=== PATIENT | female | born 1955 | race Caucasian/White ===

== ENCOUNTER 2018-03-08 17:41 | Inpatient (IN) | payer BC ==
[~2018-03-08] VITALS: Ht 167.6 cm; Wt 111.1 kg
--- NOTE | ~2018-03-08 | DS ---
[facility] [address], [place] [address] Draft ADMISSION DATE: 03/08/2018 DISCHARGE DATE: 03/12/2018 REASON FOR ADMISSION: A 62-year-old white woman, well-known to me from the past having undergone colonoscopy for diverticulosis, presented with sudden onset of lower abdominal pain. She was evaluated in the emergency room by Dr. Gracia including a CT scan which showed free intraperitoneal air consistent with perforated viscus most likely diverticulitis. She has been admitted for further evaluation and care. PERTINENT PHYSICAL EXAMINATION: GENERAL: Showed an obese, pleasant woman who did not look severely toxic. Mucous membranes are somewhat dry. Trachea is midline. CHEST: Clear. HEART: Regular without murmur. ABDOMEN: Obese, showing generalized peritonitis with tenderness throughout. Most tenderness was in the left lower abdomen and suprapubic area. LABORATORY STUDIES: Showed white count of 11.4, hematocrit 45.7, and platelets 267,000. Creatinine 0.8. HOSPITAL COURSE: She was fluid resuscitated, given broad-spectrum antibiotics and taken to operation. She is found to have inflammatory change of the small bowel particularly in the left lower abdomen. No sign of generalized fibrinous peel and certainly no evidence of fecal peritonitis. She would be considered a Hinchey class II. Laparoscopic evaluation and peritoneal lavage were undertaken with placement of a peritoneal drain in the left lower abdomen near the sigmoid. Actual perforation was not identified, but the area of probable perforation with the fibrinopurulent exudate was seen. Laparoscopic lysis of adhesions was undertaken as well. Postoperatively, she was maintained on broad-spectrum antibiotic and transitioned ultimately to Cipro and Flagyl. She had nausea with the Flagyl and transitioned then to Augmentin which she tolerated well. On day of discharge, she is ambulating well, tolerating a low residue diet and drainage shows only clear fluid. She is expected to be discharged today anticipating continued use of a drain and antibiotics for seven more days. In a week or so, the drain will be removed. She may ultimately undergo followup CT scan. If she has worsening of her symptoms in anyway, she will let us know. I am hopeful and optimistic that will not be the case. Whether or not she will have definitive sigmoid resection remains to be determined. PATIENT NAME: EMILY MILLER DISCHARGE SUMMARY DATE OF : 51 REPORT #: [id number] PHYSICIAN: PRAVEENA CANTU MD PCP: BRAULIO ALVA PAC REPORT IS CONFIDENTIAL AND NOT TO BE RELEASED WITHOUT AUTHORIZATION [facility] [address], [place] [address] Draft DISCHARGE MEDICATIONS: 1. Augmentin 875 mg one tablet p.o. b.i.d. #14. 2. Ibuprofen 600 mg p.o. q.6 hours p.r.n. pain #30. 3. Percocet 7.5/325 mg 1-2 p.o. q.4 hours as needed for pain #10. 4. Tylenol 650 mg p.o. q.6 hours as needed for pain #60. 5. She will resume her usual medications of vitamin D 50,000 units p.o., daily, aspirin 81 mg p.o. daily, Lipitor 10 mg p.o. daily, and metoprolol 50 mg q.24 hours. 6. Rizatriptan 10 mg as needed for migraine headache. 7. Albuterol inhaler 2 puffs q.4 hours as needed. 8. Minocycline 50 mg p.o. b.i.d. for rosacea as needed. 9. Nasonex 2 sprays nasally as needed. 10. Claritin 10 mg p.o. daily at bedtime for allergies. DISCHARGE DIAGNOSES: 1. Perforated diverticulitis Hinchey class II, status post laparoscopic evaluation, peritoneal lavage, placement of drain, antibiotic therapy. 2. Obesity. 3. Reactive airways. 4. Hypertension. 5. Rosacea. PLAN: She is returned to see me in approximately 1-2 weeks for a drain removal hopefully. MD VIDA Vazquez/GABRIELLE /[id number] Copies: ~ PATIENT NAME: EMILY MILLER DISCHARGE SUMMARY DATE OF : 51 REPORT #: [id number] PHYSICIAN: PRAVEENA CANTU MD PCP: BRAULIO ALVA REPORT IS CONFIDENTIAL AND NOT TO BE RELEASED WITHOUT AUTHORIZATION
--- OUTSIDE RECORDS SUMMARY | ~2018-03-08 | XMS | Clinical Summary ---
Demographics + + + | Address | [address] | | | [place] [address] | + + + | Home Phone | | + + + | Preferred Language | Unknown | + + + | Marital Status | | + + + | Yazdanism Affiliation | 1028 | + + + | Race | Unknown | + + + | Ethnic Group | Unknown | + + + Author + + + | Author | [facility] | | | and [place] | + + + | Organization | [facility] | | | and [place] | + + + | Address | Unknown | + + + | Phone | Unavailable | + + + Support + + +---------+ + | Name | Relationship | Address | Phone | + + +---------+ + | JAMEY DIXON ECON | Unknown | | + + +---------+ + Care Team Providers + +------+ + | Care Elevator Adjuster Name | Role | Phone | + +------+ + PP | Unavailable | + +------+ + Allergies Not on File Current Medications Not on file Active Problems Not on file Social History + +-------+ +--------+------+ | Tobacco Use | Types | Packs/Day | Years | Date | | | | | Used | | + +-------+ +--------+------+ | Never Assessed | | | | | + +-------+ +--------+------+ + + + | Sex Assigned at | Date Recorded | | | | + + + | Not on file | | + + + Plan of Treatment + + + + + | Health Maintenance | Due Date | Last Done | Comments | + + + + + | Vaccine: | | | | | Dtap/Tdap/Td (1 - | 3 | | | | Tdap) | | | | + + + + + | Cervical Cancer | | | | | Screening (Pap) | 4 | | | + + + + + | Vaccine: Zoster (1 | | | | | of 2) | 4 | | | + + + + + | Vaccine: Influenza | | | | | (#1) | 8 | | | + + + + + Results Not on filefrom Last 3 Months"
--- OUTSIDE RECORDS SUMMARY | ~2018-03-08 | XMS | Clinical Summary ---
Demographics + + + | Address | [address] | | | [place] [address] | + + + | Home Phone | | + + + | Preferred Language | Unknown | + + + | Marital Status | | + + + | Restorationist Affiliation | 1028 | + + + | Race | Unknown | + + + | Ethnic Group | Unknown | + + + Author + + + | Author | [facility] | | | and [place] | + + + | Organization | [facility] | | | and [place] [...] Team Providers + +------+ + | Care Corn Detasseler Name | Role | Phone | + [...]
[2018-03-08] MEDS ORDERED: VITAMIN D50000 UNI1 PO (18:29)
[2018-03-08] MEDS ORDERED: TOPROL XL25 MG PO (18:29)
[2018-03-08] MEDS ORDERED: ASPIR-LOW81 MG PO (18:30)
[2018-03-08] MEDS ORDERED: LIPITOR10 MG PO (18:30)
--- NOTE | 2018-03-08 19:30 | NUR ---
CHARGE NURSE ROUNDING NOTE:. MARIA ELENA WILSON, PATENT, NO C/O PAIN, VISITING WITH FAMILY
--- NOTE | 2018-03-08 23:38 | NUR ---
03/08/18 4010 Rin Coronel PATIENT REMOVES HER OXYGEN MASK AND OXYGEN IS BEING ADMINSTERED VIA BB - 10 L.
--- NOTE | 2018-03-09 00:15 | NUR ---
PT BROUGHT TO ROOM VIA STRETCHER. HAND OFF RECIEVED FROM MACHINE SORTER. PT AOX4, DROWSY AND TIRED, BUT RESPONSIVE TO QUESTIONS. PERRLA, LS CLEAR, HEART SOUNDS WNL, BT HYPOACTIVE. ABD TENDER. 3 LAP SITES PRESENT WITH SMALL AMOUNT OF SANGUINEOUS DRAINAGE. ALEX DRAIN NOTED WITH MODERATE AMOUNT OF SANGUINEOUS DRAINAGE. VSS. PT ON 1LNC. PT'S O2 SAT >90. PT PLACED ON CPOX. CMS INTACT. PT DENIES SIGNIFICANT PAIIN AND DENIES PRN PAIN/NAUSEA MEDICATION AT THIS MOMENT. PT ORIENTED TO ROOM. CALL LIGHT WITHIN REACH. ADMISSION COMPLETE. NO FURTHER REQUESTS.
--- NOTE | 2018-03-09 01:24 | NUR ---
VITALS DONE AND CHARTED.
--- NOTE | 2018-03-09 01:36 | NUR ---
IN ROOM FOR HOURLY VITALS. VSS. PT C/O 08/26 PAIN WITH SOME MILD NAUSEA. PT GIVEN PRN PAIN/NAUSEA MEDICATION PER EMAR. PT EDUCATED ON PAIN/ NAUSEA MANAGEMENT. PT VERBALIZED UNDERSTANDING. NO REQUESTS AT THIS TIME. CALL LIGHT WITHIN REACH.
--- NOTE | 2018-03-09 02:37 | NUR ---
VITALS DONE AND CHARTED.
--- NOTE | 2018-03-09 02:52 | NUR ---
PT ASLEEP IN BED. CPOX READS 89 %. RR 14. PT PLACED ON 1LNC WHILE SLEEPING DUE TO HX OF SLEEP APNEA. PT DENIES ANY PAIN OR NAUSEA. NO REQUESTS AT THIS TIME. HYDRATION AT BEDSIDE. CALL LIGHT WITHIN REACH.
--- NOTE | 2018-03-09 04:28 | NUR ---
IN PT ROOM TO ADMINISTER 0300 ABX. IV D5 LR AND MEROPENEM FOUND TO BE INCOMPATIBLE, TELE PHARMACY CONSULTED. NEW 20 G IV STARTED IN RIGHT AC BY GIBSON CHEN. MEROPENEM RUNNING CONCURRENTLY WITH NS IN RIGHT AC, D5 LR RUNNING IN LEFT HAND. PT DENIES ANY PAIN OR NAUSEA AT THIS TIME. DENIES ANY REQUESTS AT THIS TIME. HYDRATION AT BEDSIDE. CALL LIGHT WITHIN REACH.
--- NOTE | 2018-03-09 05:55 | NUR ---
SPOKE TO ABOUT PATIENT'S DAO. NEW ORDERS TO DC DAO AND DECREASE THE IV FLUIDS FROM 125 TO 85ML/HR. VERIFIED USING READ BACK METHOD. HYBRID POWERTRAIN DEVELOPMENT ENGINEER TO DC DAO.
--- NOTE | 2018-03-09 06:16 | NUR ---
VITALS DONE AND CHARTED. BEDSIDE TABLE AND CALL LIGHT IN REACH. PT NEEDS NOTHING ELSE AT THIS TIME.
--- NOTE | 2018-03-09 06:25 | NUR ---
PT ARRIVED TO UNIT AT 0015 VIA STRETCHER FROM OR. PT AOX4, DROWSY FROM ANESTHESIA. PT'S PAIN HAS BEEN WELL MANAGED AT 1-/ THROUGHOUT SHIFT. PT RECIEVED PRN PAIN/NAUSEA MEDICATION X1. PT ON 1LNC R/T HISTORY OF SLEEP APNEA. PT STATES THAT SHE DOES NOT TOLERATE A CPAP AT HOME. CPOX IN PLACE. PT'S O2 SAT > 95 ON 1LNC WHILE SLEEPING. PT HAS 3 LAP SITES PRESENT ON ABDOMEN. 1 WITH ALEX DRAIN. PT HAS HAD MODERATE SANGUINEOUS DRAINAGE FROM ALEX DRAIN. DAO CATHETER IN PLACE. VITAL SIGNS HAVE REMAINED STABLE. PT AFEBRILE. IV RUNNING WNL IN LEFT HAND AND RIGHT AC.
--- NOTE | 2018-03-09 06:27 | NUR ---
PATIENT ARRIVED FROM SURGERY AROUND 0015. MINIMAL PAIN, MORPHINE X1. NAUSEA CONTROLED WITH PRN ZOFRAN X1. NO EMESIS. LAP SITES X3, MINIMAL DRAINAGE. ALEX DRAIN HAS MODERATE AMOUNT OF OUTPUT FOR THE SHIFT, 30MLS FOR FIRST 4 HOURS POST OP. SYLWIA MEDEROS THIS AM, OUTPUT QS. PATIENT TOLERATING CLEAR LIQUIDS. IV ABX AND IV FLUIDS PER ORDERS. HAS NOT BEEN OUT OF BED, PRIOR TO SURGERY SHE AMBULATED WITHOUT ASSIST. VS WNL.
--- NOTE | 2018-03-09 07:36 | NUR ---
RECIEVED BEDSIDE REPORT FROM APRIL ARREAGA AND APRIL SHORT. PT AWAKE AND ALERT, SITTING IN THE CHAIR. PT HAD QUESTIONS REGARDING PLAN OF CARE, ALL QUESTIONS ANSWERED.
--- NOTE | 2018-03-09 09:18 | NUR ---
PT IS IN CHAIR, BUT REQUESTED ASSISTANCE TO BED. RN ASSISTED TO BED. PT REPORTS NO PAIN AT REST, BUT PAIN JUMPS TO 7/10 WITH MOVEMENT. PT TOLERATING CLEAR LIQUIDS WELL. TOLERATING IV ABX WELL.
--- NOTE | 2018-03-09 10:17 | NUR ---
PT REPORTS A SHARP, STABBING PAIN UNDER HER ALEX SITE. THE PAIN SEEMS TO BE BELOW AND MIDLINE TO THE ALEX. PT DECLINED PAIN MEDS AT THIS TIME. ALEX DRAIN IS DRAINING SEROUS FLUID AND APPEARS INTACT. PT STATES SHE WILL REST A FEW MIN AND DECIDE IF SHE WANTS MEDS.
--- NOTE | 2018-03-09 11:35 | NUR ---
OFFERED PT AN ICE PACK OR HEAT PACK FOR ABD PAIN. PT STATES SHE IS GOOD AT THIS TIME. DR CANTU AWARE OF INCREASE IN PAIN.
[2018-03-09] MEDS ORDERED: METOPROLOL SUCC50 MG PO (12:22)
[2018-03-09] MEDS ORDERED: MINOCYCLINE HCL50 MG PO (14:20)
[2018-03-09] MEDS ORDERED: RIZATRIPTAN10 M1 PO (14:20)
[2018-03-09] MEDS ORDERED: VENTOLIN HFA18 GM INH (14:20)
[2018-03-09] MEDS ORDERED: NASONEX17 GM NAS (14:21)
[2018-03-09] MEDS ORDERED: CLARITIN10 MG PO (14:22)
--- NOTE | 2018-03-09 14:23 | NUR ---
MED REC COMPLETE
--- NOTE | 2018-03-09 17:33 | OR ---
[facility] [address], [place] [address] Signed DATE OF OPERATION: 03/08/2018 SURGEON: Praveena Cantu MD PREOPERATIVE DIAGNOSES: 1. Generalized peritonitis with free intraperitoneal air. 2. Known extensive diverticulosis. 3. Morbid obesity. BMI 36. POSTOPERATIVE DIAGNOSES: 1. Generalized peritonitis with free intraperitoneal air. 2. Known extensive diverticulosis. 3. Morbid obesity. BMI 36. 4. Perforated diverticulitis, Hinchey class two. PROCEDURE: 1. Laparoscopy with laparoscopic peritoneal lavage and placement of peritoneal drain left lower quadrant. 2. Laparoscopic lysis of adhesions. ANESTHESIA: General endotracheal, Praveena Dubon CRNA, and local 20 mL of 0.25% Marcaine with epinephrine. INDICATION: This 62-year-old, BMI of 36 (morbidly obese) white woman had the sudden onset of lower abdominal pain at approximately 2:30 this afternoon. As time went on the pain worsened, and she presented to the emergency room where she was evaluated by Dr. Kellen Gracia. She is found to have diffuse abdominal tenderness. Her white count was normal at 11.5. A CT scan was performed, which showed free intraperitoneal air distributed throughout the abdomen and diverticular changes with peridiverticular inflammatory changes. She is known to me from the past having undergone colonoscopy in 2009, which showed only diverticulosis. She has been fluid resuscitated, given broad-spectrum antibiotics and is now admitted to undergo laparoscopy, possible laparoscopic lavage and placement of drain versus sigmoid resection depending on Hinchey classification. She understands risks of bleeding, infection, failure to cure her problem, need for open procedure, need for colostomy if resection is performed, and other unforeseen complications including recurrence. She Electronically Signed By: PRAVEENA CANTU MD 03/09/18 1733 PATIENT NAME: EMILY MILLER OPERATIVE REPORT DATE OF : 51 REPORT #: [id number] PHYSICIAN: PRAVEENA CANTU MD PCP: BRAULIO ALVA PAC REPORT IS CONFIDENTIAL AND NOT TO BE RELEASED WITHOUT AUTHORIZATION [facility] [address], [place] [address] Signed and her family understand and wished to proceed. FINDINGS: Within the abdominal cavity there were signs of inflammation with injection of small bowel loops and ultimately a fibrinous exudative, purulent area in the sigmoid area. There was no sign of free stool and should be considered Hinchey class two overall. Generalized peritoneal lavage was undertaken, and placement of drain in the left lateral aspect of the colon in the sigmoid. There was surgical absence of the gallbladder from prior open cholecystectomy. The right colon, cecum, and loops of small bowel appeared normal. There was no evidence of perforated ulcer. The liver did have steatosis, but no sign of cirrhotic changes. There were omental adhesions, which were taken down with sharp dissection without problem. DESCRIPTION OF PROCEDURE: The patient was brought to the operating room, given a general endotracheal anesthetic. Preoperative antibiotic meropenem had been given. Sequential compression device stockings used and heparin subcutaneously administered. The abdomen was prepared with a chlorhexidine solution and draped sterilely. A supraumbilical incision was made and using an open Rudy cannula technique, the abdomen was entered and pneumoperitoneum achieved to a level of 14 mmHg of carbon dioxide gas. Intraabdominal inspection showed no sign of ascites or even much inflammatory fluid, but there was marked injection of small bowel loops mostly down in the left lower abdomen. A 12 mm epigastric port was placed, and a camera placed at that site. Further inspection allowed for a rotation of the table to the right side down. Direct examination of the left colon and sigmoid area showed some inflammatory change. There is certainly no sign of gross fecal contamination or even generalized turbid fluid as is often seen. A right lower quadrant 5 mm trocar was placed under direct visualization and operative intervention taken from the right side of the table at that point. With two hand manipulation with the camera in the epigastric port and the other instrument at the umbilical site, the small bowel loops were gently rotated to the right side with the aid of gravity from table rotation. Irrigation was undertaken with antibiotic containing saline solution and with various manipulations, the fatty taenia epiploica were gently brushed to side showing in the sigmoid area a fibrinous peel suggestive of recent perforation. There was no sign of abscess proper at that point. Further irrigation was undertaken including the left colon itself. Excess irrigation fluid was suctioned free. A left lower quadrant 5 mm trocar was placed and a 7 mm flat Electronically Signed By: PRAVEENA CANTU MD 03/09/18 1733 PATIENT NAME: EMILY MILLER OPERATIVE REPORT DATE OF : 51 REPORT #: [id number] PHYSICIAN: PRAVEENA CANTU MD PCP: BRAULIO ALVA PAC REPORT IS CONFIDENTIAL AND NOT TO BE RELEASED WITHOUT AUTHORIZATION [facility] [address] [place] [id number] Signed Geovanni drain was positioned along the left pericolic gutter, and around the sigmoid extending to the pelvis. Operative position was then changed to the left side. The table was rotated and inspection on the right side with irrigation was undertaken irrigating fluid throughout the abdomen, which was already reasonably clear. Similar irrigation was undertaken over the dome of the liver. There was surgical absence of the gallbladder with adhesions to the subhepatic space quite densely noted. There was no evidence of purulence, or sign of perforation in the region of the stomach or duodenum. Not mentioned previously was extensive adhesiolysis of omentum to the midline of the abdomen at the outset of the operation, which was taken down with sharp dissection through the right sided approach, and a few clips applied to the omental adhesions as needed. Inspection of the dissected omental adhesions from the abdominal wall was undertaken and small areas of bleeding were secured with electrocautery. Reinspection of the left lower quadrant and pelvis and so forth was undertaken and excess irrigation fluid suctioned free. The trocars were then removed under direct visualization showing no sign of bleeding. The supraumbilical fascial incision was reapproximated with interrupted 0 Vicryl suture. All wounds were copiously irrigated with saline solution. Skin closed with interrupted 3-0 Vicryl. Steri-Strips were applied. The drain was attached to bulb suction after being secured with nylon suture previously. Serosanguineous fluid only was noted. The patient was ultimately extubated for recovery in good condition having suffered no complication. COUNTS: Sponge, needle, and instrument counts reported as correct x3. MD VIDA Vazquez/GABRIELLE /[id number] Electronically Signed By: PRAVEENA CANTU MD 03/09/18 1733 PATIENT NAME: EMILY MILLER OPERATIVE REPORT DATE OF : 51 REPORT #: [id number] PHYSICIAN: PRAVEENA CANTU MD PCP: BRAULIO ALVA PAC REPORT IS CONFIDENTIAL AND NOT TO BE RELEASED WITHOUT AUTHORIZATION [address] [address] Signed cc: MD Kayla Gonzalez MD Copies: KELLEN GRACIA MD, ERICA MD ~ Electronically Signed By: PRAVEENA CANTU MD 03/09/18 1733 PATIENT NAME: EMILY MILLER OPERATIVE REPORT DATE OF : 51 REPORT #: [id number] PHYSICIAN: PRAVEENA CANTU MD PCP: BRAULIO ALVA PAC REPORT IS CONFIDENTIAL AND NOT TO BE RELEASED WITHOUT AUTHORIZATION
--- NOTE | 2018-03-09 17:33 | HP ---
[facility] [address], [place] [address] Signed ADMISSION DATE: 03/08/2018 TIME: 9:20 p.m. PROBLEM: Probable perforated diverticulitis with free air, and generalized peritonitis. HISTORY OF PRESENT ILLNESS: This 62-year-old white woman a mother of my patient, and patient is known to me from the past having undergone colonoscopy for diverticulosis. Today, in the early afternoon, she had a rather sudden onset of lower abdominal pain, which felt like "gas." She could not find a position of comfort and things worsened. She thought a bowel movement or other relief of flatus may help her symptoms, but that was not forthcoming. She last ate at approximately 3:30, a protein bar with a weight loss program she is enrolled with. She presented to the emergency room where she was thoroughly evaluated by Dr. Gracia, and found to have generalized abdominal tenderness, though she did not look systemically toxic. A CT scan was performed of the abdomen confirming free intraperitoneal cold air. She has numerous diverticula and the probable source of her free air is perforated diverticulitis. The patient does not have as much upper abdominal pain and there were no other intraabdominal findings of concern. She is admitted for further evaluation and care. PAST MEDICAL HISTORY: Significant for obesity, for which she has sustained 38-pound weight loss with dedicated efforts with a weight loss program to do so. She has no known drug allergies. She does not have diabetes. SOCIAL HISTORY: She works in [employer], lives in [place]. She is accompanied by her fiance, as well as granddaughters and daughters. REVIEW OF SYSTEMS: She denies any shortness of breath or chest pain. She is having no dysphagia, or dysuria. She denies any hematemesis. No blood per rectum. PHYSICAL EXAMINATION: GENERAL: This is an obese, pleasant white woman who does not look severely toxic particularly. Mucous membranes are somewhat dry. Trachea is midline. Electronically Signed By: PRAVEENA CANTU MD 03/09/18 1733 PATIENT NAME: EMILY MILLER HISTORY AND PHYSICAL DATE OF : 51 REPORT #: [id number] PHYSICIAN: PRAVEENA CANTU MD PCP: BRAULIO ALVA PAC REPORT IS CONFIDENTIAL AND NOT TO BE RELEASED WITHOUT AUTHORIZATION [facility] [address], [place] [address] Signed CHEST: Clear. HEART: Regular without murmur. ABDOMEN: Obese. Abdominal palpation reveals generalized peritonitis. Most dominant tenderness is in the left lower and suprapubic area. EXTREMITIES: No clubbing, cyanosis, or edema. CT scan was reviewed showing diffuse disseminated intraperitoneal air. The colon was well visualized, and does have some stool in it. The spleen and liver appeared normal. Both kidneys appeared normal. Normal anatomy of the vena cava and aorta is noted. In the area of the sigmoid there appears to be fat stranding multiple diverticula. No sign of well-formed abscess particularly. There is some stool in the rectosigmoid and rectum. LABORATORY DATA: White count is only 11.4. Her hematocrit is 45.7, platelets 267,000. Electrolytes and Chem profile are normal. Creatinine is 0.80, glucose 134. Review of medical record shows colonoscopy performed by me 8 years ago, in 2009 showing diverticulosis and mild proctitis. ASSESSMENT: The patient has diffuse peritonitis with free intraabdominal air. Most likely this represents perforated diverticulitis. We reviewed standard and conventional approaches to management including laparotomy with sigmoid resection and colostomy, over-sewing of rectal stump with subsequent later takedown of colostomy (Nita's procedure). I reviewed with her also another approach, which has been successful in my hands providing there was no gross fecal contamination, which included laparoscopy, laparoscopic lavage, and placement of drain. Subsequent delayed sigmoid resection with anastomosis, primarily in general is a consideration. She would certainly prefer to avoid colostomy if possible obviously. I discussed with her that such patients that are candidates for this approach those without gross fecal contamination, (Hinchey class three or less), but certainly Hinchey class four with gross fecal contamination. Would not be appropriate candidate for such an approach. She understands that failure of this approach may still result in sigmoid resection with colostomy. The risks of bleeding, infection, failure of operation, need for other procedures, and of course, misdiagnosis were all reviewed. The possibility of perforated gastric ulcer or duodenal ulcer is reviewed, however, it is unlikely as the dominant findings include lower abdominal tenderness and she does have documented and well visualized diverticular disease of sigmoid. She will receive and has started to receive meropenem antibiotic, and Pepcid for ulcer prophylaxis, and will be getting additional fluid boluses prior to operation. Operation Electronically Signed By: PRAVEENA CANTU MD 03/09/18 6745 PATIENT NAME: EMILY MILLER HISTORY AND PHYSICAL DATE OF : 51 REPORT #: [id number] PHYSICIAN: PRAVEENA CANTU MD PCP: BRAULIO ALVA PAC REPORT IS CONFIDENTIAL AND NOT TO BE RELEASED WITHOUT AUTHORIZATION [address] [address] Signed will be performed this evening. MD VIDA Vazquez/MODL /[id number] cc: Kellen Gracia MD Copies: KELLEN GRACIA MD ~ Electronically Signed By: PRAVEENA CANTU MD 03/09/18 1733 PATIENT NAME: EMILY MILLER HISTORY AND PHYSICAL DATE OF : 51 REPORT #: [id number] PHYSICIAN: PRAVEENA CANTU MD PCP: BRAULIO ALVA PAC REPORT IS CONFIDENTIAL AND NOT TO BE RELEASED WITHOUT AUTHORIZATION
--- NOTE | 2018-03-09 19:05 | NUR ---
REPORT RECIEVED. PT RESTING IN BED. FAMILY AT BEDSIDE. CALL LIGHT WITHIN REACH. NO REQUESTS AT THIS TIME
--- NOTE | 2018-03-09 19:07 | NUR ---
PATIENT RESTING IN BED, FAMILY MEMBER IN THE ROOM. CALL LIGHT WITH IN REACH, NO OTHER NEEDS AT THIS TIME.
--- NOTE | 2018-03-09 20:20 | NUR ---
IN ROOM FOR SHIFT ASSESSMENT. PT RESTING IN BED WITH FAMILY AT BEDSIDE. PT STATES THAT SHE HAS PAIN LEVEL OF 6/10. PT GIVEN PRN MOTRIN FOR PAIN. PT AOX4. PLEASANT. PT'S LS CLEAR, PT SHOWED DIFFICULTY TO SIT UP IN BED R/T ABD PAIN. ABD TENDER. LAP SITES X3 VISUALIZED. STERI STRIPS INTACT. MODERATE AMOUNT OF DRAINAGE PRESENT. ALEX DRAIN INTACT. DRAINING WELL. BT HYPOACTIVE. IV ABX FINISHED. PT SL NOW. PT DENIES ANY NAUSEA AT THIS TIME. TOLERATING CLEAR LIQUIDS WELL. URINE OUTPUT QS. SCD'S ON. NO REQUESTS AT THIS TIME. CALL LIGHT WITHIN REACH.
--- NOTE | 2018-03-09 21:40 | NUR ---
IN ROOM TO ADMIN EVENING MEDS. PT RESTING IN BED. PT STATES THAT THE MOTRIN GIVEN TO HER HAS "TAKEN THE EDGE OFF" AND SHE FEELS MUCH BETTER. PT DENIES ANY NAUSEA. ICE PACKS GIVEN TO PT. PT UP TO BATHROOM. URINE OUTPUT QS. PT TOLERATED AMBULATING WELL. STEADY ON FEET 1 PERSON SBA. PT TOLERATED EVENING MEDS. IV ABX RUNNING PER EMAR. SCD'S ON. PT TUCKED IN FOR THE NIGHT. NO FURTHER NEEDS AT THIS TIME. CALL LIGHT WITHIN REACH. HYDRATION AT BEDSIDE.
--- NOTE | 2018-03-09 22:06 | NUR ---
VITALS AND I&OS DONE AND CHARTED. BEDSIDE TABLE AND CALL LIGHT IN REACH.
--- NOTE | 2018-03-10 00:22 | NUR ---
PT SOUND ASLEEP. CPOX ON O2 SAT >95. PT ON 1LNC WHILE SLEEPING. NO NEEDS AT THIS TIME. CALL LIGHT WITHIN REACH.
--- NOTE | 2018-03-10 01:01 | NUR ---
PT RESTING IN BED. DENIES ANY PAIN AT THE MOMENT. DENIES NEED FOR PRN PAIN MEDICATION. DENIES NAUSEA. NEW ICE PACK PLACED TO PT'S LEFT LOWER ABDOMINAL. IV ABX COMPLETE. IV SL. NO FURTHER REQUEST. CALL LIGHT WITHIN REACH.
--- NOTE | 2018-03-10 02:00 | NUR ---
PT SOUND ASLEEP IN ROOM. NO NEEDS AT THIS TIME. CPOX IN PLACE. O2 SAT >95 ON 1LNC FOR SLEEP. CALL LIGHT WITHIN REACH.
--- NOTE | 2018-03-10 03:25 | NUR ---
IN ROOM TO ADMIN SCHEDULED ABX. ALEX DRAIN NOTED TO BE CLOTTED. ALEX DRAIN STRIPPED, PT IMMEDIATELY C/O SHARP PAIN IN ABDOMEN RELATED TO ALEX STRIPPING. PT TEARFUL/GROANING IN PAIN. CLOT DISLODGED. ALEX DRAINING WELL NOW. PT GIVEN PRN PAIN MEDICATION. PT STATES PAIN IS DECREASING AFTER CLOT DISLODGED. PT EDUCATED ON DRAIN AND PAIN MANAGEMENT. QUESTIONS ANSWERED. NEW ICE PACK GIVEN. NO FURTHER REQUESTS AT THIS TIME. CALL LIGHT WITHIN REACH.
--- NOTE | 2018-03-10 05:45 | NUR ---
VITALS AND I&OS DONE AND CHARTED. HELPED PT TO THE BATHROOM AND BACK TO BED. BEDSIDE TABLE AND CALL LIGHT IN REACH. PT NEEDS NOTHING AT THIS TIME.
--- NOTE | 2018-03-10 06:30 | NUR ---
PT SLEPT THROUGHOUT MOST OF THE NIGHT. PT GIVEN PRN MOTRIN WHICH RELEIVED 6/10 ABD PAIN VERY WELL. IV SL. IV ABX DELIVERED PER EMAR. ALEX DRAINING WNL. PT GIVEN PRN PERCOCET X1 AFTER STRIPPING ALEX DRAIN DUE TO CLOTS. PT DENIES ANY NAUSEA. AMBULATES WELL WITH 1 PERSON SBA. PT REMAINS ON CLEAR LIQUID DIET. TOLERATING WELL. PT ON 1LNC THROUGHOUT NIGHT WITH CPOX. O2 SAT > 95 THROUGHOUT NIGHT.
--- NOTE | 2018-03-10 08:05 | NUR ---
RECIEVED REPORT FROM APRIL ARREAGA AND APRIL SHORT. PT SLEEPING SOUNDLY. PT REQUESTS NO BEDSIDE REPORT DUE TO SLEEPING. APRIL ARREAGA REPORTS EXTREME PAIN WHEN "STRIPPING" THE ALEX LINE. WILL TALK TO DR CANTU ON ROUNDS RE: PLACEMENT OF DRAIN. MT ON 1L O2 WHILE SLEEPING, MAINTAINING O2 SATS PER CONT. PULSE OX MACHINE.
--- NOTE | 2018-03-10 10:48 | NUR ---
pt asked to use the bathroom, unhooked pt's SCDs and pt walked to bathroom, voided, and returned to bed. pt's ALEX was emptied and new gown was given. pt asked for more ice water and pain meds, nurse notified.
--- NOTE | 2018-03-10 13:59 | NUR ---
REPORT RECEIVED FROM APRIL WHITEHEAD. PT SITTING UPRIGHT IN BED WITH AT BEDSIDE. UP TO RESTROOM WITH 600 OUT. PT DENIES CONCERNS ATT.
--- NOTE | 2018-03-10 14:33 | NUR ---
PT CALLED TO REPORT BOUT OF SEVERE NAUSEA. GAVE EMESIS BAG AND ADMINISTERED 12.5 OF PHEN. PT SITTING UP IN BED WITH EYES CLOSED, DEEP BREATHING.
--- NOTE | 2018-03-10 14:47 | NUR ---
pt is resting in bed with call light in reach, pt asked for more ice water
--- NOTE | 2018-03-10 16:54 | NUR ---
ASKED PT AGAIN TO GO FOR A WALK AND NOW SHE STATES SHE IS TOO DIZZY TO WALK MORE THAN JUST THE RESTROOM. WILL TRY AGAIN IN 1\2 HOUR.
--- NOTE | 2018-03-10 18:36 | NUR ---
PT UP AND DOWN TO BATHROOM TODAY. REFUSED TO WALK IN STRINGER EVEN AFTER FREQUENT REQUESTS BY STAFF. MINIMAL OUTPUT BY JP. SL. SAHA.
--- NOTE | 2018-03-10 19:10 | NUR ---
pt is resting in bed safely with call light in reach. pt did not need anything at the moment
--- NOTE | 2018-03-10 19:15 | NUR ---
REPORT RECIEVED. PT RESTING IN BED. FAMILY AT BEDSIDE. PT C/O FEELING GASSY. PT ENCOURAGED TO GET UP AND AMBULATE IN THE HALLS. PT COMPLIANT. WALKED TWO LAPS IN STRINGER WITH . NO REQUESTS AT THIS TIME. PT DENIES PAIN OR NAUSEA. CALL LIGHT WITHIN REACH.
--- NOTE | 2018-03-10 20:35 | NUR ---
IN ROOM FOR SHIFT ASSESSMENT. PT UP TO BATHROOM. VOIDED 200 MLS OF CLEAR YELLOW URINE. PT DENIES BM TODAY. BT ACTIVE THROUGHOUT, ABD TENDER. LAP SITES X3 VISUALIZED. STERI STRIPS INTACT. SMALL AMOUNT OF OLD SEROSANUINOUS DRAINAGE. PT'S ALEX DRAINING WNL. PT'S LS CLEAR THROUGHOUT, DENIES N/V. CMS INTACT. VSS. PT AOX4. PT ON 1LNC O2 FOR BEDTIME. SALTINES GIVEN PER PT REQUEST. HYDRATION AT BEDSIDE. NO FURTHER REQUESTS AT THIS TIME. CALL LIGHT WITHIN REACH.
--- NOTE | 2018-03-10 22:15 | NUR ---
VITALS AND I&OS DONE AND CHARTED. STOOD BY PT WENT TO USE THE BATHROOM AND BACK TO BED. BEDSIDE TABLE AND CALL LIGHT IN REACH.
--- NOTE | 2018-03-11 01:21 | NUR ---
PT SOUND ASLEEP. NO NEEDS AT THIS TIME. CALL LIGHT WITHIN REACH. PT ON 1L VIA NC AT NIGHT.
--- NOTE | 2018-03-11 02:53 | NUR ---
PT SOUND ASLEEP. O2 AT 1LNC REMAINS ON PT FOR SLEEP. NO REQUESTS AT THIS TIME. CALL LIGHT WITHIN REACH.
--- NOTE | 2018-03-11 05:02 | NUR ---
PT SLEPT SOUNDLY THROUGHOUT MOST OF THE SHIFT. PT AMBULATED IN HALLWAY AT BEGINNING OF SHIFT WITH . PT ALSO AMBULATED IN HALLWAY THIS MORNING WITH FWW TO PROVIDE SOME EXTRA STABILITY. PT TOLERATED WELL. PT RECIEVED PRN MOTRIN X1 THROUGHOUT SHIFT FOR 6/10 PAIN AFTER AMBULATING. NO C/O PAIN AFTER PRN PAIN MED GIVEN. NO C/O NAUSEA. NO BM THIS SHIFT. BT ACTIVE. ABD TENDER, 3 LAP SITES WITH STERI STRIPS C/D/I. ALEX DRAINED 15 MLS OF SEROSANGUINEOUS FLUID THROUGHOUT SHIFT. URINE OUTPUT QS. LS CLEAR. ON 1LNC AT NIGHT DUE TO SLEEP AP.
--- NOTE | 2018-03-11 05:23 | NUR ---
PT UP TO BATHROOM. AMBULATES WELL WITH 1 PERSON SBA. PT DENIES ANY PAIN WITH AMBULATION. STATES SHE HAS BEEN SLEEPING WELL THROUGHOUT THE NIGHT. NO C/O NAUSEA. VSS. 15 MLS DRAINED OUT OF ALEX DRAIN. NO C/O PAIN WITH ALEX DRAINAGE. PT UP TO AMBULATE IN HALLWAYS. COMPLETED 4 LAPS IN STRINGER TOLERATED WELL. BACK TO BED NOW. NO REQUESTS AT THIS TIME. CALL LIGHT WITHIN REACH.
--- NOTE | 2018-03-11 07:32 | NUR ---
RECIEVED BEDSIDE REPORT FROM APRIL SHORT AND APRIL ARREAGA. PT AWAKE AND ALERT IN BED. PT HAS BEEN UP WALKING THIS MORNING, 4 LAPS. PT REPORTS MINIMAL PAIN, EXCEPT WITH DRAIN CARE. PT REPORTS MINIMAL NAUSEA WITH ABX, REQUESTS CHANGE IN ANTI-NAUSEA MEDS (WOULD LIKE ZOFRAN). PT WOULD LIKE A SHOWER TODAY, WILL CONFIRM THAT IS OK.
--- NOTE | 2018-03-11 08:40 | NUR ---
PATIENT RESTING IN BED, THIS INSPECTOR EXHAUST EMISSIONS ASSISTED PATIENT TO WASH HANDS AND FACE WITH WARM WASH CLOTH. PATIENT COMPLAINS OF NAUSEA, RN NOTIFIED. PATIENT STATES SHE WOULD LIKE TO SHOWER TODAY IF THE DOCTOR ALLOWS. CALL LIGHT IN REACH. NO OTHER NEEDS AT THIS TIME.
--- NOTE | 2018-03-11 09:09 | NUR ---
PT REPORTING MINOR NAUSEA, SHE HAS PHENERGEN ORDERED, WOULD LIKE SOMETHING LESS SEDATING. CALLED DR CANTU, TELEPHONE ORDER FOR ZOFRAN 4MG IV OR PO Q6PRN FOR NAUSEA. ORDER READ BACK TO CONFIRM.
--- NOTE | 2018-03-11 10:02 | NUR ---
PATIENT RESTING IN BED, CALL LIGHT IN REACH. PATIENT STATES SHE WOULD LIKE TO SHOWER THIS AFTERNOON. NO OTHER NEEDS AT THIS TIME.
--- NOTE | 2018-03-11 14:14 | NUR ---
PATIENT RESTING IN BED, CALL LIGHT IN REACH. NO OTHER NEEDS AT THIS TIME.
--- NOTE | 2018-03-11 14:25 | NUR ---
PT READY FOR SHOWER. HEATING AND VENTILATING DRAFTER AWARE AND WILL SET THE SHOWER UP. PT REPORTS NO PAIN, NO NAUSEA, NO VOMITING. ZOFRAN WAS EFFECTIVE.
--- NOTE | 2018-03-11 15:05 | NUR ---
THIS RADIOLOGY MANAGER ASSISTED PATIENT UP INTO SHOWER. PATIENT SHOWERED INDEPENDENTLY. LINENS CHANGED. PATIENT BACK IN BED, IN ROOM. PATIENT SITTING ON EDGE OF BED, CALL LIGHT IN REACH. NO OTHER NEEDS AT THIS TIME.
--- NOTE | 2018-03-11 17:53 | NUR ---
PT REPORTS NAUSEA AFTER FLAGYL. PT DECLINED PHERGREN FOR NAUSEA CITING IT WAS TOO SEDATING. DR CANTU GAVE TELEPHONE ORDER FOR AMOL, EFFECTIVE. PT UP TO SHOWER AND AMBULATING IN STRINGER. TOLERATING LOW FIBER DIET WELL. VOIDING WELL. POSITIVE FLATUS. PAIN IS TOLERABLE. ALEX DRAIN DRAINING SMALL AMT OF SEROUS FLUID.
--- NOTE | 2018-03-11 19:15 | NUR ---
PT RESTING IN BED. FAMILY AT BEDSIDE. PT DENIES ANY PAIN OR NAUSEA AT THIS TIME. HOPEFUL TO GO HOME TOMORROW. NO NEEDS AT THIS TIME. HYDRATION AT BEDSIDE. CALL LIGHT WITHIN REACH.
--- NOTE | 2018-03-11 21:19 | NUR ---
IN ROOM FOR SHIFT ASSESSMENT. EVENING MEDS GIVEN. PT TOLERATED WELL. PT DENIES ANY PAIN OR NAUSEA AT THIS TIME. UP TO THE BATHROOM. AMBULATES WELL INDEPENDENTLY. PT UP TO TAKE A WALK IN HALLWAYS. 4 LAPS DONE IN THE HALLS W/O ANY ASSISTIVE DEVICES. TOLERATED WELL. NO PAIN AFTER AMBULATION. PT EDUCATED ON USE/OPERATION OF ALEX DRAIN DUE TO POSSIBILITY OF GOING HOME WITH IT. PT EXHIBITED UNDERSTANDING AND DEMONSTRATED ABILITY TO DRAIN AND CARE FOR ALEX INDEPENDENTLY. PT'S QUESTIONS ANSWERED. PT RECEPTIVE TO EDUCATION. PT BACK TO BED FOR THE NIGHT. ON 1LNC. EDUCATION PROVIDED REGARDING HER SLEEP APNEA, RECCOMENDED HER TO SPEAK WITH HER PRIMARY DR ABOUT POSSIBLE CPAP OR BIPAP TO WEAR AT NIGHT. SCD'S ON. HYDRATION AT BEDSIDE. BT ACTIVE. LS CLEAR, PULSES STRONG AND EQUAL. NO REQUESTS AT THIS TIME. CALL LIGHT WITHIN REACH.
--- NOTE | 2018-03-12 00:04 | NUR ---
PT RESTING IN BED SOUND ASLEEP. NO NEEDS AT THIS TIME. CALL LIGHT WITHIN REACH.
--- NOTE | 2018-03-12 02:59 | NUR ---
PT UP TO BATHROOM. VOIDED 250 MLS OF CLEAR YELLOW URINE. NO C/O PAIN OR NAUSEA. SCD'S ON. 1LNC O2 ON PT. NO FURTHER NEEDS AT THIS TIME. CALL LIGHT WITHIN REACH.
--- NOTE | 2018-03-12 05:20 | NUR ---
PT SLEPT WELL THROUGHOUT THE NIGHT. NO C/O PAIN OR NAUSEA. PT ON 1LNC THROUGH THE NIGHT DUE TO SLEEP AP. SMALL AMOUNT OF ALEX DRAINAGE. EDUCATION PROVIDED TO PT ABOUT ALEX USE DUE TO POSSIBLY BEING SENT HOME WITH IT. PT DEMONSTRATED COMPETENCY. BT ACTIVE. NO BM THIS SHIFT. URINE OUTPUT QS. PT WALKED 4 LAPS IN HALLS THIS [place] W/O ANY ASSISTANCE. LOW FIBER DIET, VSS.
--- NOTE | 2018-03-12 06:18 | NUR ---
VITALS AND I&OS DONE AND CHARTED, EMPTIED GARBAGES. FRESH WATER GIVEN. BEDSIDE TABLE AND CALL LIGHT IN REACH.
--- NOTE | 2018-03-12 07:30 | NUR ---
RECIEVED BEDSIDE REPORT FROM APRIL ARREAGA AND DEJA RN. PT AWAKE AND ALERT IN CHAIR. PT IS READY FOR DC. PT REPORTS NO PAIN, NO NAUSEA. PT EDUCATED ON ALEX DRAIN CARE AND DEMOSTRATED THAT SHE CAN CARE FOR DRAIN INDEPENDENTLY. INDEPENDENT IN ROOM, AMBULATES IN HALLS.
--- NOTE | 2018-03-12 08:18 | NUR ---
PATIENT UP IN CHAIR EATING BREAKFAST. CALL LIGHT IN REACH. NO FURTHER NEEDS AT THIS TIME.
--- NOTE | 2018-03-12 10:06 | NUR ---
PATIENT RESTING IN BED, BEDSIDE. FRESHWATER GIVEN. CALL LIGHT IN REACH. NO FURTHER NEEDS AT THIS TIME.
--- NOTE | 2018-03-12 10:48 | NUR ---
PT UP WALKING THE STRINGER WTIH HER .
--- NOTE | 2018-03-12 11:08 | NUR ---
PATIENT ON A LOW-FIBER DIET. STATED SHE DOESN'T REMEMBER RECEIVING ANY INFO ON THIS YET. I PROVIDED HER A COPY OF A LOW-FIBER DIET FROM THE NUTRITION CARE MANUAL. REVIEWED THE INFO WITH HER. SHE WAS GLAD I STOPPED IN AND GAVE HER MORE INFO. FOODS RECOMMENDED AND FOODS NOT RECOMMENDED SPECIFIED. SAMPLE ONE DAY MENU PROVIDED WELL. SHE SHOULD DO FINE AT HOME. MY OFFICE # PROVIDED IN CASE MORE QUESTIONS ARISE.
--- NOTE | 2018-03-12 13:47 | NUR ---
PATIENT SITTING UP IN BED. FAMILY BEDSIDE. CALL LIGHT IN REACH. NO FURTHER NEEDS AT THIS TIME.
[2018-03-12] MEDS ORDERED: AMOX TR-K CLV1 EAC1 PO (16:56)
[2018-03-12] MEDS ORDERED: MAPAP325 MG PO (16:56)
[2018-03-12] MEDS ORDERED: IBUPROFEN600 MG PO (16:59)
[2018-03-12] MEDS ORDERED: OXYCODON-ACETA1 EAC2 PO (16:59)
--- NOTE | 2018-03-12 18:27 | NUR ---
PT TEACHING COMPLETE. DISCUSSED WITH PT AND SO. DISCUSSED RETURN TO WORK, FOLLOW UP APPT, WHEN TO CALL THE DR, AND REINFORCED RX TEACHING. VITAL SIGN TAKEN, IV REMOVED. PERSONAL BELONGINGS RETURNED. PT WALKED OUT WITH RN.
== END 2018-03-12 17:52 | disposition home or self-care (01) | DRG 336 ==
LOC: ED 17:41 → MS 17:43
PROVIDERS: ADMIT Surgery
PROC: 0W9G40Z Drainage of Peritoneal Cavity with Drainage Device, Percutaneous Endoscopic Approach (ICD-10-PCS; principal; 2018-03-09)
PROC: 0DNE4ZZ Release Large Intestine, Percutaneous Endoscopic Approach (ICD-10-PCS; 2018-03-09)
DX: K57.20 Diverticulitis of large intestine with perforation and abscess without bleeding (principal); E66.01 Morbid (severe) obesity due to excess calories; Z68.36 Body mass index [BMI] 36.0-36.9, adult
CPT/HCPCS: 00840; 36415; 74177; 80053; 81001; 83690; 85025; 94762; 96365; 96375; 96376; 99285; J0330; J1100; J1170; J1644; J1720; J1885; J2185; J2250; J2270; J2405; J2550; J2704; J2765; J3010; J7120; Q9967

== ENCOUNTER 2018-07-02 09:37 | Inpatient (IN) | payer BC ==
[~2018-07-02] VITALS: Ht 167.6 cm; Wt 93.9 kg
[~2018-07-02 09:37] MED LIST: AMOX TR-K CLV1 EAC1 PO; ASPIR-LOW81 MG PO; CLARITIN10 MG PO; FLAGYL500 MG PO; IBUPROFEN600 MG PO; LEVAQUIN500 MG PO; LIPITOR10 MG PO; MAPAP325 MG PO; METOPROLOL SUCC50 MG PO; MINOCYCLINE HCL50 MG PO; NASONEX17 GM NAS; NORCO 5-325 TA1 EACH PO; OXYCODON-ACETA1 EAC2 PO; RIZATRIPTAN10 M1 PO; TOPROL XL25 MG PO; VENTOLIN HFA18 GM INH; VITAMIN D50000 UNI1 PO; ZOFRAN ODT4 MG PO
[2018-07-03] MEDS ORDERED: VITAMIN D1000 UNIT PO (08:09)
[2018-07-03] MEDS ORDERED: MULTIVITAMINS1 EAC7 PO (08:09)
--- NOTE | 2018-07-05 09:15 | NUR ---
PT ALERT, ORIENTED AND EXCITED BUT SOMEWHAT ANXIOUS FOR TODAY. PT ADMITTED THAT THE PAST YEAR HAS BEEN A TOUGH ONE ON HER HEALTHWISE. WITH A NEW MARRIAGE AND THE COLOSTOMY REVERSAL TODAY SHE IS EXCITED FOR THE FUTURE! PT EXPRESSED A DESIRE TO VISIT WITH DR. CANTU BEFORE SURGERY. PT REQUESTED PRAYER WILL FOLLOW NEEDED
--- NOTE | 2018-07-05 13:20 | NUR ---
07/05/18 1320 Julita Garcia 1302- PT ARRIVES TO PACU FROM OR ON 8 L VIA MASK WITH SATS 100%. RESP EVEN AND UNLABORED. FOGGING PRESENT IN MASK. PT DOES NOT RESPOND TO VERBAL STIMULUS AT THIS ITME. SURGICAL SITE DRESSING C/D/I. ALEX DRAIN AND FOLY IN PLACE AND EMPTYING AT BEDSIDE. 1308 - PT OPENS EYES AND ANSWERS QUESTIONS APPROPRIATELY. PT DENIES PAIN/NAUSEA. VSS. RESP EVEN AND UNLABORED. SATS >90% ON 8 L VIA MASK. ALEX DRAINS 20 ML. 1311 - PT TITRATED TO RA. SATS >90%. RESP EVEN AND UNLABORED. PT DENIES PAIN/NAUSEA. VSS. 1320- PT INCREASIGNLY MORE AWAKE. GLASSES GIVEN TO PT. RESP EVEN AND UNLABORED. SATS >90% ON RA. PT DENIES PAIN/NAUSEA. STATES "I FEEL WEIRD". 13
--- NOTE | 2018-07-05 14:42 | NUR ---
1415 PT TO ROOM FROM PACU, PT DENIES PAIN AND IS RESTING WITH EYES CLOSED. RESP EVEN AND UNLABORED. PT REPORTS FEELING TO TOES BILATERALLY AND IS ABLE TO MOVE THEM. VSS. CALL LIGHT WITHIN REACH.
--- NOTE | 2018-07-05 15:20 | NUR ---
PT DROWSY, AWAKES TO VERBAL STIMULI. PT DENIES PAIN AT THIS TIME. PT REMAINS ON RA, CONT PULSE OX INTACT, 98%. PT HAS FULL SENSATION IN LOWER EXTREMETIES. PT REPORTS SOME NUMBNESS TO LOWER EXT. RESP EVEM AMD NON LABORED. PERSONAL SUPPLIES AND CALL LIGHT WITHIN REACH. DAO INTACT, PATENT AND YELLOW OUTPUT NOTED IN BAG. CALL LIGHT WITHIN REACH.
--- NOTE | 2018-07-05 17:58 | NUR ---
PT ON RA, CONT PULSE OX INTACT. VS STABLE. SPINAL; RESOLVING. CLEAR LIQUIDS TOLERATING WELL.+BT.
--- NOTE | 2018-07-05 18:04 | NUR ---
PATIENT RESTING IN BED. IN ROOM. VITAL SIGNS AND I&O DONE. PATIENT DID NO EAT AND DRINK DURING THIS PERIOD. RN NOTIFIED. CALL LIGHT WITHIN REACH. NO OTHER NEEDS AT THIS TIME
--- NOTE | 2018-07-05 23:51 | OR ---
[facility] [address], [place] [address] Signed DATE OF OPERATION: 07/05/2018 SURGEON: Praveena Cantu MD PREOPERATIVE DIAGNOSES: 1. History of recurrent perforated diverticulitis, status post laparoscopic sigmoid colectomy with end colostomy (Nita procedure). 2. Morbid obesity. POSTOPERATIVE DIAGNOSES: 1. History of recurrent perforated diverticulitis, status post laparoscopic sigmoid colectomy with end colostomy (Nita procedure). 2. Morbid obesity. PROCEDURES PERFORMED: 1. Rigid proctoscopy with rectal lavage and clearance of distal colonic and rectal segment. 2. Partial colectomy including proximal colon and residual sigmoid and proximal rectum with side-to-end coloproctostomy. 3. Excision of colostomy side of abdominal wall. 4. Repair of abdominal wall defect. 5. Mobilization of splenic flexure. ANESTHESIA: General endotracheal, Shayy Constantine, [employer], and local 30 mL of 0.25% Marcaine with epinephrine. INDICATION: This 62-year-old white woman is morbidly obese, but is on a weight loss program and continuing to lose weight. She presented on March 08, 2018, with perforation of the colon secondary to acute diverticulitis and underwent laparoscopy with peritoneal lavage and placement of drains as well as appendectomy by me. A plan for staged sigmoid resection was anticipated and pending a colonoscopy. She had recurrent perforation in my absence from town. The local surgeon, Dr. Cotto, managed her with laparoscopic sigmoidectomy with end colostomy and Nita pouch. She has recovered from her acute diverticular problem and at this point is to undergo resection of residual colon and coloproctostomy and removal of her left-sided colostomy. She understands the risks of bleeding, infection, anastomotic failure, and other Electronically Signed By: PRAVEENA CANTU MD 07/05/18 3476 PATIENT NAME: EMILY DAVIS OPERATIVE REPORT DATE OF : 51 REPORT #: [id number] PHYSICIAN: PRAVEENA CANTU MD PCP: BRAULIO ALVA PAC REPORT IS CONFIDENTIAL AND NOT TO BE RELEASED WITHOUT AUTHORIZATION [facility] [address], [place] [address] Signed unforeseen complications and wished to proceed. FINDINGS: There were some dense adhesions of small bowel to the staple line of the rectal stump. These were in turn densely adherent to the uterus itself. These were freed up entirely and residual minimal sigmoid colon was noted as well as the rectum with a thickened rectal mesentery. More proximal colon that had formed the end colostomy had diverticula, but no sign of thickened mesentery or diverticulitis proper. The pelvic organ showed normal ovaries and tubes for age as well as uterus. No other intraabdominal findings of concern. By conclusion, partial colectomy was performed including proximal segment of descending colon and residual sigmoid and down to mid rectum allowing for a side-to-end coloproctostomy within the pelvis. Mobilization of the splenic flexure was accomplished as well. A drain was placed. Residual colonic stump was excised from the abdominal wall and the abdominal wall fascia repaired from the inner and outer aspect completely. The ostomy site was left packed with gauze. Total blood loss was about 50 mL. DESCRIPTION OF PROCEDURE: The patient was brought to the operating room, given a general endotracheal anesthetic. A full and complete bowel prep was undertaken including oral antibiotics. Plans were then made for rigid proctoscopy. In a frog-leg position, a rigid proctoscope was inserted into the rectum and with bulb irrigation, inspissated mucus and so forth was irrigated and suctioned free. It is recalled that she has undergone colonoscopy and sigmoidoscopy preoperatively showing no sign of neoplasm. Inspissated mucus and so forth was gently suctioned free with irrigation, cleaning the rectum fully anticipating anastomosis. A Cosme catheter had already been placed. The abdomen, which was quite obese, was prepared with Betadine based solution and draped sterilely. An Ioban dressing was applied directly over the abdominal wall, so as to isolate the left mid abdominal colostomy site. Incision was made in the midline just below the umbilicus. A very thick abdominal wall pannus was encountered. The fascia was incised in the midline allowing for entry into the abdomen. Small bowel appeared normal. There was no sign of ascites, carcinomatosis, or other problem. Alex clamps were applied to the left-sided midline fascia and the descending colon which emanated through to the ostomy site on the left Electronically Signed By: PRAVEENA CANTU MD 07/05/18 6615 PATIENT NAME: EMILY DAVIS OPERATIVE REPORT DATE OF : 51 REPORT #: [id number] PHYSICIAN: PRAVEENA CANTU MD PCP: BRAULIO ALVA PAC REPORT IS CONFIDENTIAL AND NOT TO BE RELEASED WITHOUT AUTHORIZATION [facility] [address] [place] [id number] Signed was examined. Using electrocautery, it was freed circumferentially from the abdominal wall fascia and ultimately transected with a SAWYER stapling device 75 mm in length. Oozing sites of the mesentery and staple line were secured with cautery and reflected into the upper abdomen. A Bookwalter retractor was attached to the table and the small ring was used. Abdominal exposure was thus undertaken more fully. There appeared to be adhesions of small bowel deep into the pelvis. A long suture marking the rectal stump could be identified. The sigmoidal/rectal stump was densely adherent to the posterior aspect of the uterus. Small bowel was similarly densely adherent to the staple line in that area. This was freed with all due care using sharp and electrocautery dissection ultimately freeing the small bowel entirely. Small bowel was run from ligament of Treitz to the terminal ileum showing no sign of anomaly. Small bowel was then packed into the right upper abdomen, secured with moistened laparotomy packs. Examination now could be undertaken more fully. The shriveled sigmoid/rectal stump was noted densely adherent to the posterior aspect of the uterus. [place] clamps were applied to the round ligament and salpinx of the left horn of the uterus and with blunt and electrocautery dissection, ultimately the uterus and surrounding adnexal structures freed from the rectal stump. Dissection was then undertaken of the distal sigmoid, which was maintained. Further dissection inferiorly allowed for identification of the tinea epiploica, they appeared to be independent for a few centimeters before coalescence of the tinea was noted, thus showing some residual distal sigmoid. Area designated as appropriate for anastomosis was identified. Rectal mesentery was markedly thickened and still has some mild chronic inflammation. This was freed circumferentially and clips applied as necessary to secure the vascular pedicles of the upper to mid rectum. Area designated as appropriate for rectal anastomosis was identified. Attention was turned to the more proximal segment. Some freeing of the left colon from splenic flexure attachments was undertaken using blunt and electrocautery dissection allowing for remaining left colon to easily mobilize to the depths of the pelvis. There were residual diverticula of the left colon, but no thickened mesentery nothing to suggest ongoing inflammation. Complete clearance of diverticula proximally would be quite impossible without substantial additional colectomy and therefore an area designated as appropriate for anastomosis was defined. Further dissection in the distal portion of the previous distal colon was undertaken. Once freed fully, Endo SAWYER stapling device was used to transect that segment of colon. Staple line was oversewn with interrupted 3-0 silk suture. Electronically Signed By: PRAVEENA CANTU MD 07/05/18 2351 PATIENT NAME: EMILY DAVIS OPERATIVE REPORT DATE OF : 51 REPORT #: [id number] PHYSICIAN: PRAVEENA CANTU MD PCP: BRAULIO ALVA PAC REPORT IS CONFIDENTIAL AND NOT TO BE RELEASED WITHOUT AUTHORIZATION [facility] [address], [place] [address] Signed Plans were then made for anastomosis. The depths of the pelvis were isolated with laparotomy packs and a side-to-end (Steele) coloproctostomy undertaken. This is a two layer technique with interrupted 3-0 silk suture. The proximal and distal segments were quite clean and clear. There was no spillage of enteric contents. Conclusion, careful inspection of the anastomosis showed to be widely patent and watertight. Through a left lower quadrant stab incision, a 7 mm flat Geovanni drain was placed in the depths of the pelvis and secured to the skin with nylon suture and later attached to bulb suction. Irrigation was undertaken more fully. Gown and gloves were changed medially following anastomosis to minimize cross-contamination for the remaining operation. The omentum was replaced over the abdominal contents after rearrangement of the small bowel loops. Plans were then made for further excision of the colostomy site in the left mid abdomen. Using electrocautery, the fascial edges were more fully freed up. Fascial defect including peritoneum was then reapproximated with running #1 PDS suture. Plans were then made for closure of the fascia. The midline fascia was reapproximated with running bidirectional #1 PDS suture. The fascial layer was reapproximated fully and 20 mL of 0.25% Marcaine with epinephrine injected locally. Skin was then closed with interrupted 3-0 Vicryl after irrigation of the subcutaneous space with sterile antibiotic containing solution. Steri-Strips were applied to the incision upon peeling back of the Ioban dressing. A Mepilex silver sponge dressing and an OpSite were then used to secure the wound more fully. Ioban was completely removed, exposing the distal segment of the colostomy. Using electrocautery, elliptical excision was undertaken of the portion of the skin and the subcutaneous tissue allowing for complete explantation of the residual colon that had transgressed the abdominal wall. Since the inner table was closed already with PDS suture, additional closure of the fascial edge with interrupted #1 PDS was undertaken as well. Irrigation was undertaken in subcutaneous space. The wound was then packed with gauze. The patient was ultimately extubated and transferred to recovery room in good condition having suffered no complication. Sponge, needle, and counts reported as correct x3. The operation was rather prolonged, complicated, and difficult on the basis of her obesity and adhesions, but was accomplished safely. Praveena Cantu MD Electronically Signed By: PRAVEENA CANTU MD 07/05/18 4428 PATIENT NAME: GAWITHEMILY OPERATIVE REPORT DATE OF : 51 REPORT #: [id number] PHYSICIAN: PRAVEENA CANTU MD PCP: BRAULIO ALVA REPORT IS CONFIDENTIAL AND NOT TO BE RELEASED WITHOUT AUTHORIZATION [address] [place] [address] Signed /GABRIELLE /[id number] cc: RUTH Handy MD Copies: BRAULIO ALVA MICHELLE MD ~ Electronically Signed By: PRAVEENA CANTU MD 07/05/18 2351 PATIENT NAME: EMILY DAVIS OPERATIVE REPORT DATE OF : 51 REPORT #: [id number] PHYSICIAN: PRAVEENA CANTU MD PCP: BRAULIO ALVA REPORT IS CONFIDENTIAL AND NOT TO BE RELEASED WITHOUT AUTHORIZATION
--- NOTE | 2018-07-06 01:39 | NUR ---
INFORMED APRIL RUIZ B\P
--- NOTE | 2018-07-06 01:39 | NUR ---
VITALS AND I&OS DONE AND CHARTED. BEDSIDE TABLE AND CALL LIGHT IN REACH.
--- NOTE | 2018-07-06 01:48 | NUR ---
PATIENT REMAINS RESTING QUIETLY. HAD TO PUT PATIENT ON 1 LITER NASAL CANNULA WHEN SLEEPING SHE HAS SLEEP APNEA, AND DESATS BELOW 88% WHEN ASLLEP. OTHERWISE SHE HAS NEEDED NOTHING FOR PAIN OR NAUSEA AND IS RESTING EYES CLOSED WITH SATS IN THE MID 90'S AND SCD'S ON.
--- NOTE | 2018-07-06 07:00 | NUR ---
REPORT GIVEN TO DAYSHIFT RN. PATIENT KEPT FALLING ASLEEP AND WAS NOT HAVING ANY PAIN SO DILAUDID FUR DYER NOT STARTED, ESPECIALLY SINCE SHE HAD TO BE PLACED ON TO LITERS O2 FOR HER SLEEP APNEA. PATIENT HAD NO NAUSEA OR VOMITING, HAS TAKEN SOME CLEARS, BUT NO A WHOLE LOT. SHE HAS MAINLY SLEPT.
--- NOTE | 2018-07-06 07:53 | NUR ---
RECIEVED BEDSIDE REPORT FROM APRIL SHANKAR. PT AWAKE AND ALERT. PT HAD O2 PLACED OVER NIGHT FOR NINFA WITH DESATS. PT IV INFILTRATED, WILL REQUEST A MIDLINE CONSULT. NO DILAUDID BOILER TECHNICIAN DUE TO RESP DEPRESSION AND LOW O2 AFTER PRN DOSE. CPOX IN PLACE. NO GAS, NO BM, BUT DID FEEL GAS PAINS.
--- NOTE | 2018-07-06 08:18 | NUR ---
PATIENT IN BED EATING BREAKFAST. BOARD UPDATED. CALL LIGHT IN REACH. NO FURTHER NEEDS AT THIS TIME.
--- NOTE | 2018-07-06 09:40 | NUR ---
PATIENT RESTING IN BED. IN ROOM. VITAL SIGNS AND I&O DONE. ICE WATER GIVEN. CALL LIGHT WITHIN REACH. NO OTHER NEEDS AT THIS TIME
--- NOTE | 2018-07-06 09:52 | NUR ---
PT UP WALKING IN HALLS WITH . HAS IV FLUIDS RUNNING. ELECTRICAL MAINTENANCE ENGINEER IN PLACE. PT REPORTS NO DIZZINESS, LIGHTHEADEDNESS, MODERATE PAIN WITH AMBULATION.
--- NOTE | 2018-07-06 11:00 | NUR ---
SPOKE WITH PATIENT AND IN ROOM. PATIENT PLANS TO RETURN HOME AT DISCHARGE. WILL BE AVAILABLE FOR TRANSPORTATION AND TO HELP HER AT HOME. PATIENT HAS NO AMBULATION ISSUES AND HAS NO CONCERNS FOR DISCHARGE TO HOME. DISCUSSED POST-OP ISSUES. DISCUSSED SHE WILL HAVE FOLLOW-UP APPOINTMENTS AND TO MAKE SURE SHE UNDERSTANDS MEDICATIONS AND SIDE EFFECTS. SHE STATES UNDERSTANDING.
--- NOTE | 2018-07-06 11:29 | NUR ---
PATIENT RESTING IN BED. BEDBATH DONE. CATHETER CARE DONE. ONE PERSON ASSISTING. CALL LIGHT WITHIN REACH. NO OTHER NEEDS AT THIS TIME
--- NOTE | 2018-07-06 12:09 | NUR ---
PT SITTING ON SIDE OF BED, JOHN AT . SHE IS FEELING BETTER, AND EXCITED FOR THE HEALING TO CONTINUE. GAVE BLESSING, WILL FOLLOW NEEDED
--- NOTE | 2018-07-06 12:14 | NUR ---
1213 RN TO ROOM DUE TO IV PUMP ALARMING, NEW BAG OF IV FLUIDS STARTED. PT RESTING IN BED WITH AT BEDSIDE. CALL LIGHT WITHIN REACH.
--- NOTE | 2018-07-06 13:52 | NUR ---
PATIENT RESTING IN BED. IN ROOM. VITAL SIGNS AND I&O DONE. CALL LIGHT WITHIN REACH. NO OTHER NEEDS AT THIS TIME
--- NOTE | 2018-07-06 14:53 | NUR ---
MED REC COMPLETE WITH REFILL HISTORY.
--- NOTE | 2018-07-06 15:20 | NUR ---
PATIENT WALKS IN HALLWAY THREE LAPS. AND THIS PAVER ASSISTS PATIENT. PATIENT BACKS TO BED. CALL LIGHT WITHIN REACH. NO OTHER NEEDS AT THIS TIME.
--- NOTE | 2018-07-06 15:32 | NUR ---
OSTOMY DRESSING CHANGED. SPLIT SPONGES REMOVED. PACKED WITH SMALL AMT OF KERLEX GAUZE. PT TO STAY ON CLEAR LIQUIDS UNTIL BM/GAS. PT UP WALKING HALLS WITH SPOUSE.
--- NOTE | 2018-07-06 17:37 | NUR ---
PATIENT RESTING IN BED. IN ROOM. VITAL SIGNS AND I&O DONE. CALL LIGHT WITHIN REACH. NO OTHER NEEDS AT THIS TIME
--- NOTE | 2018-07-06 18:14 | NUR ---
STOMA DRESSING CHANGED. PT UP AMBULATING IN HALLS AND TO BATHROOM. NO BM. TOLERATING CLEAR LIQUIDS. PT REPORTS INTENSE "PRESSURE" IN ABD. VICE PRESIDENT COMPLIANCE IN PLACE, PT USES APOPRIATELY. PAIN WELL CONTROLLED WITH VICE PRESIDENT COMPLIANCE. DAO IN PLACE, DRAINING YELLOW URINE. SPOUSE AT BEDSIDE. PT REPORTS FEELINGS OF GAS, BUT NO FLATUS OR BM.
--- NOTE | 2018-07-06 20:00 | NUR ---
PATIENT RESTING QUIETLY AND DENIES PAIN. USING SALES DEMONSTRATOR APPROPRIATELY. ABD DRESSING CDI.
--- NOTE | 2018-07-06 21:13 | NUR ---
CHARGE NURSE ROUNDING NOTE: AWAKE, USING AQUATIC PERFORMER DILAUDID WITH GOOD PAIN RELIEF. ALEX AND F/C PATENT. DRESSING L LOW ABD SITE CDI. SCDS IN PLACE. ON ROOM AIR WHEN AWAKE. CALL LIGHT AND FLUIDS AT BEDSIDE
--- NOTE | 2018-07-06 22:36 | NUR ---
PATIENT HAS HAD PM MEDS AND IS RESTING QUIETLY NO AFTER NEW DRAIN SPONNGES PLACED AROUND ALEX SITE.
--- NOTE | 2018-07-07 00:15 | NUR ---
PATIENT RESTING QUIETLY, RESPIRATIONS REGULAR AND EVEN, NO DISTRES NOTED.
--- NOTE | 2018-07-07 02:30 | NUR ---
PATIENT RESTING QUIETLY, EYES CLOSED RESPIRATIONS EVEN AND REGULAR AT RATE OF 18. NO S/S OF DISTRESS OR PAIN.
--- NOTE | 2018-07-07 06:07 | NUR ---
PATIENT RESTING QUIETLY, EYES CLOSED, SATS IN THE HIGH 90'S ON 1.5L/NC, HR=80'S.
--- NOTE | 2018-07-07 06:09 | NUR ---
PATIENT'S PAIN HAS BEEN WELL CONTROLLED WITH HER LATIN DANCER. SHE HAS SLEEPED MOST THE NIGHT. HAS BEEN TITRATED DOWN TO 1.5L/NC. SATS REMAIN IN THE HIGH 90'S AND HR REMAINS IN THE 80'S. SCD'S ON ALL NIGHT. OLD OSTOMY SITE DRESSING CHANGED ARE PER NURSE NOTIFY ORDER. DAO DRAINING AND IV WNL AND REMAINS INFUSING.
--- NOTE | 2018-07-07 07:24 | NUR ---
RECIEVED BEDSIDE REPORT FROM APRIL SHANKAR. PT SLEEPING SOUNDLY, APPEARS COMFORTABLE. NASAL CANULA IN PLACE WITH O2 AT 1.5L. PT PRODUCING URINE, QS. DAO IN PLACE.
--- NOTE | 2018-07-07 08:42 | NUR ---
PT UP AMBULATING IN STRINGER X 2 LAPS. PAIN CONTROLED BY FINAL FINISHER. PT WILL RETURN TO CHAIR WHEN SHE IS DONE IN STRINGER.
--- NOTE | 2018-07-07 10:15 | NUR ---
PATEINT IN BED, WALKED TH STRINGER WAYS, TOLERATED FAIR, CURRENTLY BACK IN BED AND RESTING
--- NOTE | 2018-07-07 11:31 | NUR ---
ROUNDED WITH DR CANTU. OK TO TAKE SHOWER, LEAVE MEPILEX IN PLACE, IT IS WATERPROOF. STOMA SITE CAN BE UNDRESSED, ALLOW WATER TO FLOW OVER AND REDRESS WHEN OUT OF THE SHOWER. ADVANCED DIET TO FULL LIQUIDS. PT UP TO CHAIR, PERSONAL BELONGINGS IN REACH.
--- NOTE | 2018-07-07 15:59 | NUR ---
PT HAD BOWEL MOVEMENT AFTER SHOWER, LARGE LOOSE. PT TOLERATED SHOWER WELL. DRESSING REMOVED PRIOR TO SHOWER. PT ALLOWED SHOWER TO RINSE WOUND. WOUND REPACKED AND DRESSED. PT TOLERATED WELL.
--- NOTE | 2018-07-07 17:48 | NUR ---
PT REPORTS ADDITIONAL BOWEL MOVEMENT, LOOSE WITH LOTS OF GAS. PT ENJOYING A FULL LIQUID MEAL. NO INCREASED PAIN, NO NAUSEA, NO VOMITING. PT SITTING ON EDGE OF BED.
--- NOTE | 2018-07-07 20:06 | NUR ---
CALLED AND ASK FOR A SIMETHICONE ORDER FOR GAS PAIN . I READ BACK ORDER 80MG Q2 HOURS PO PRN.
--- NOTE | 2018-07-07 21:30 | NUR ---
PATIENT FEELING BETTER AFTER THE SIMETHICONE.
--- NOTE | 2018-07-07 23:20 | NUR ---
V/S AND I&O DONE AND CHARTED.
--- NOTE | 2018-07-07 23:40 | NUR ---
PATIENT CONTINUES TO REST WELL ON 2L/NC, SATS 97, HR 78, RESPS 16, EYES CLOSED AND NO SIGNS OF DISTRESS.
--- NOTE | 2018-07-08 01:07 | NUR ---
PATIENT RESTING QUIETLY, SATS 98% ON 2L/NC,HEART RATE 82, RESPS 18.
--- NOTE | 2018-07-08 01:35 | NUR ---
PATIENT CONTINUEES TO REST QUIETLY. NO CHANGE IN CONDITION SINCE I CHECKED IN ON HER LAST.
--- NOTE | 2018-07-08 01:42 | NUR ---
HUNG LAST BOTTLE OF IV TYLENOL AND PATIENT STILL RESTING QUIETLY AND VS STABLE ON PULSE OX.
--- NOTE | 2018-07-08 03:40 | NUR ---
PATIENT HAS HAD REALLY GOOD PAIN CONTROL WITH THE ASSOCIATE STORE LEADER AND HAS HAD THE SAME SYRINGE FOR GOING ON 3 DAYS.
--- NOTE | 2018-07-08 05:30 | NUR ---
PATIENT CONTINUES TO REST QUIETLY, EYES CLOSED, VS STABLE.
--- NOTE | 2018-07-08 07:00 | NUR ---
PATIENT UP TO THE BATHROOM WITH ASSISTANCE AND THEN BACK IN BED AFTER A DARK RUNNY BM. ABD PACKING AND DESSING CHANGED. PATIENT TOLERATED WELL. PATIENT SAID SHE SLEPT WELL AND THE SIMETHACONE THAT WAS ORDERED REALLY HELPED WITH THE GAS.
--- NOTE | 2018-07-08 07:44 | NUR ---
RECIEVED BEDSIDE REPORT FROM APRIL SHANKAR. SHORT ORDER COOK CLEARED FOR SHIFT AT 3.5MG. IVF RUNNNING WITH NEW BAG. PT REPORTS MINIMAL PAIN AT REST, INCREASED PAIN WITH AMBULATION. ALEX DRAIN DRAINING WELL, SMEAR OF BLOOD ON ABD FROM INCISION SITE. WOUND DRESSING CHANGED. SMALL EPISODE OF REDDISH BROWN LIQUID STOOL.
--- NOTE | 2018-07-08 09:10 | NUR ---
PT RESTING IN BED. REQUESTED GAS DROPS AND TORDOL, WHICH WAS EFFECTIVE. PT EATING AND DRINKING WELL.
--- NOTE | 2018-07-08 13:50 | NUR ---
TALKED TO MD CANTU ABOUT D/C TINNER AUTOMATIC PUMP SINCE PT HAS NOT USED IT MUCH. SINCE PT WILL BE UPGRADED TO A REGULAR DIET, HE AGREED TO D/C HER TINNER AUTOMATIC AND STARTING HER ON PO PAIN MEDICATION.
--- NOTE | 2018-07-08 13:51 | NUR ---
DC'D PATIENTS DAO CATH, CURRENTLY IN BED EATING HER SOUP
--- NOTE | 2018-07-08 14:36 | NUR ---
DAIRY CATTLE FARM MANAGER DISCONTINUED. CLEARED FOR 0.2MG. REMAINING 0.1MG WASTED WITH APRIL GRIFFIN IN MED ROOM. DAIRY CATTLE FARM MANAGER KEYS RETURNED.
--- NOTE | 2018-07-08 18:24 | NUR ---
PT ADVANCED TO REG DIET, SLIGHT NAUSEA AFTER DINNER. POOR APETITE. DAO DC. MIDLINE INCISION DRESSING REMOVED AND LEFT ADOLFO WITH TARIK AND STERI-STRIPS. NO S/SX INFECTION. EDGES WELL APROXIMATED. AMBULATING WELL. DRINKING WELL. SURETY BOND AGENT DC, ORAL NORCO AND IV TORADOL AVAILABLE. PAIN WELL CONTROLED WITH CURRENT MEDICATIONS.
--- NOTE | 2018-07-08 19:00 | NUR ---
SHIFT REPORT RECEIVED. PATIENT RESTING IN BED. APPEARS COMFORTABLE. DENIES NAUSEA AND REPORTS PAIN "OKAY". NO NEEDS AT THIS TIME, CALL LIGHT IN REACH.
--- NOTE | 2018-07-08 21:00 | NUR ---
EVENING MEDS GIVEN PER ORDER. PATIENT RESTING IN BED. REPORTS GOOD PAIN CONTROL, PRN MOTRIN PROVIDED FOR ONGOING PAIN MANAGEMENT. PATIENT REPORTS SOME NAUSEA BUT HAS IMPROVED SIGNIFICANTLY IN THE LAST HOUR. BOWEL SOUNDS ARE ACTIVE, ABD SOFT AND TENDER. ALEX DRAIN IN PLACE, RECENTLY DRAINED FOR 100MLS SEROSANGUENOUS FLUIDS. SURGICAL SITE OPEN TO AIR, WELL APPROXIMATED. COLOSTOMY SITE COVERED WITH ABD, CDI. PATIENT DECLINED OFFER TO AMBULATE IN HALLWAY, STATING SHE WILL DO MORE IN THE MORNING. NO OTHER NEEDS AT THIS TIME. CALL LIGHT IN REACH.
--- NOTE | 2018-07-08 22:20 | NUR ---
PATIENT REPORTS "TWISTING AND TURNING" IN HER STOMACH. STATES THE CLOSEST SHE CAN COME TO DESCRIBING IT IS ZOFRAN. 4MG ZOFRAN PROVIDED PER ORDER. PATIENT SITTING UP TO THE EDGE OF THE BED. EMESIS BAG PROVIDED. NO DRY HEAVING OBSERVED. WILL CONTINUE TO MONITOR.
--- NOTE | 2018-07-08 22:20 | NUR ---
PATIENT REPORTS "TWISTING AND TURNING" IN HER STOMACH. STATES THE CLOSEST SHE CAN COME TO DESCRIBING IT IS NAUSEA. 4MG ZOFRAN PROVIDED PER ORDER. PATIENT SITTING UP TO THE EDGE OF THE BED. EMESIS BAG PROVIDED. NO DRY HEAVING OBSERVED. WILL CONTINUE TO MONITOR.
--- NOTE | 2018-07-08 23:30 | NUR ---
PATIENT PROVIDED WITH PRN DILAUDID AND MAALOX. ONE TIME IV TYLENOL STARTED. PATIENT REPORTED SOME PAIN RELIEF BUT THEN BECAUSE INCREASINGLY NAUSEOUS WITH 200MLS OF EMESIS. HOWEVER, PATIENT REPORTS FEELING SOMEWHAT BETTER AFTER THIS. PATIENT PROVIDED WITH ASSISTANCE TO COMPLETE ORAL CARE AND SIPS OF WATER. PATIENT BACK IN BED. EMESIS BACK IN REACH. WILL CONTINUE TO MONITOR.
--- NOTE | 2018-07-08 23:42 | NUR ---
V/S DONE AND CHARTED. NUNAM IQUA SODA GIVEN.
--- NOTE | 2018-07-08 23:45 | NUR ---
PATIENT HAS INCREASED NAUSEA WITH SOME DRY HEAVING. REPORTS PAIN IN UPPER ABD, DIFFERENT THAN SHE HAS FELT PREVIOUSLY. APPEARS UMCOMFORTABLE, SITTING UP TO EDGE OF THE BED. PATIENT FEELS UNABLE TO TOLERATE PO PAIN MEDICATION DUE TO NAUSEA. ALEX EMPTIED FOR 100MLS. DR. CANTU NOTIFIED OF THESE CHANGES. ORDERS RECEIVED AND VERIFIED USING READ BACK METHOD.
--- NOTE | 2018-07-09 00:15 | NUR ---
PATIENT RESTING IN BED. APPEARS TO BE COMFORTABLE. REPORT IMPROVED PAIN CONTROL AND SLIGHT DECREASE IN NAUSEA. CALL LIGHT IN REACH.
--- NOTE | 2018-07-09 00:43 | NUR ---
PATIENT APPEARS TO BE SLEEPING. 1L NC IN PLACE. HOB ELEVATED. CALL LIGHT IN REACH. RR 20.
--- NOTE | 2018-07-09 03:40 | NUR ---
ASSISTED PATIENT UP TO THE BATHROOM. SBA, APPEARS WEAK. DENIES NAUSEA, MILD PAIN. DENIES PRN PAIN MEDICATION. PATIENT RETURNED TO BED. ALEX EMPTIED. DRESSING ON OSTOSY SITE REMOVED. GAUZE PACKING HAS SMALL AMOUNT OF SEROSANGUENOUS DRAINAGE. NEW GAUZE APPLIED, COVERED AREA WITH ABD TO INCLUDE THE ALEX SITE WHICH HAS HAD MODERATE AMOUNT OF DRAINAGE AT INSERTION SITE. PATIENT DENIES FURTHER NEED. 2L NC IN PLACE. CALL LIGHT IN REACH.
--- NOTE | 2018-07-09 05:34 | NUR ---
PATIENT HAD 100MLS EMESIS AND ONGOING NAUSEA. PRN ZOFRAN PROVIDED. PATIENT REPORTS PAIN IS TOLERABLE AT THIS TIME, BUT HER STOMACH IS UPSET. OFFERED MAALOX WHICH SHE DECLINED. PATIENT RESTING IN BED. EMESIS BAG IN REACH.
--- NOTE | 2018-07-09 05:42 | NUR ---
PATIENT HAS HAD SOME MODERATE NAUSEA THIS SHIFT WITH TWO EPISODES OF EMESIS. PAIN CONTROLLED WITH PRN MOTRIN, IV TYLENOL, AND DILAUDID X1. ABD IS SOFT, BOWEL SOUNDS ACTIVE. BM X1 THIS SHIFT. ALEX HAD >300MLS OUT THIS SHIFT. WOUND CARE DONE, OSTOMY SITE APPEARS TO BE HEALING WELL. MIDLINE SITE IS WELL APPROXIMATED.
--- NOTE | 2018-07-09 06:30 | NUR ---
PT HAD REQUESTED SOMETHING FOR NAUSEA TO THE GOVERNMENT TEACHER-SINTA. THIS NURSE INTO GIVE THE ZOFRAN, PT STATED "I DON'T NEED THE EXTRA ZOFRAN, THE NAUSEA PASSED" WHEN NURSE ENTERED ROOM, PT WAS 'SNORING". CALL LIGHT WITHIN REACH.
--- NOTE | 2018-07-09 06:53 | NUR ---
PT MOSTLY SLEEPY. D5LR INFUSING PER DR ORDER @125. DIET CHANGED TO CLEARS.
--- NOTE | 2018-07-09 06:57 | NUR ---
SPOKE WITH DR. ALONDRA ACOSTAING PATIENT'S LOW URINE OUTPUT AND EMESIS. IV FLUIDS ORDERED TO RESTART.
--- NOTE | 2018-07-09 07:21 | NUR ---
RECIEVED BEDSIDE REPORT FROM APRIL ARREAGA. PT IS AWAKE AND DROWSY. PT REPORTED A PAINFUL AND NASEOUS NIGHT. APRIL ARREAGA RECIEVED NEW ORDERS FOR PAIN CONTROL AND ANTIEMETICS. PT REDUCED TO CLEAR LIQUID DIET. STILL REPORTING NAUSEA. PT STARTING TO GET ANXIOUS.
--- NOTE | 2018-07-09 07:55 | NUR ---
PT STILL REPORTING SEVERE NAUSEA, SLIGHTLY RELIEVED BY 4MG ZOFRAN. PT STATES SHE "FEELS LIKE CRAP". PT LOOKS ILL. PT WOULD LIKE ADDITIONAL ANTINAUSEA MEDICATIONS IF POSSIBLE. WILL CONTACT THE MD. IVF RUNNING. PT RESTING.
--- NOTE | 2018-07-09 09:23 | NUR ---
PATIENT SITTING UP ON SIDE OF BED. PATIENT COMPLAINS OF BEING NAUSIOUS. IN ROOM TALKING ABOUT NAUSIA. CALL LIGHT IN REACH. NO FURTHER NEEDS AT THIS TIME.
--- NOTE | 2018-07-09 12:03 | NUR ---
PT LAYING IN BED-OBVIOUS THAT SHE WAS NOT HAVING A GOOD DAY. VOID BAG FULL, GOT HER SEVERAL MORE. PT FELT VERY WARM TO THE TOUCH, SHARED THIS WITH APRIL WHITEEHAD. HAD PRAYER WITH PT, DID NOT STAY LONG. WILL CONTINUE TO FOLLOW NEEDED
--- NOTE | 2018-07-09 12:17 | NUR ---
PT VERY NAUSOUS, 600ML EMISIS. UNABLE TO TOLERATE ORAL INTAKE AT THIS TIME. IV DILAUDID AND IV TORADOL GIVEN. CPOX IN PLACE.
--- NOTE | 2018-07-09 13:35 | NUR ---
PT SLEEPING SOUNDLY. APPEARS COMFORTABLE. PT STATED THAT SHE FELT BETTER.
--- NOTE | 2018-07-09 14:00 | NUR ---
PATIENT IN BED RESTING WITH EYES CLOSED. FRESH WATER GIVEN. CALL LIGHT IN REACH. NO FURTHER NEEDS AT THIS TIME.
--- NOTE | 2018-07-09 17:36 | NUR ---
PATIENT IN BED RESTING WITH EYES CLOSED. PATIENT DOES NOT WANT DINNER. CALL LIGHT IN REACH. NO FURTHER NEEDS AT THIS TIME.
--- NOTE | 2018-07-09 17:55 | NUR ---
PT VERY NAUSOUS ALL DAY, WITH EMISIS AT TIMES. ZOFRAN 8MG AND PHENERGREN 12.5MG GIVEN, SOME EFFECTIVENESS. PT DENIES PAIN IN ABD. KUB DONE THIS AM, NO RESULTS DUE TO COMPUTER ISSUES IN IMAGING. MD AWARE. NO WALKING THIS SHIFT D/T NAUSEA. MULTIPLE EPISODES OF EMISIS, 100ML-900ML, BROWNISH LIQUID. RESUMED FLUIDS, D5LR AT 125ML/HR. GAS-X AVAILABLE. AM DOSE OF PEPCID HELD D/T NAUSEA. PT C/O IRRITATION AT IV SITE. SMALL AMT OF BLOOD UNDER DRESSING.
--- NOTE | 2018-07-09 18:19 | NUR ---
PT VOMITED 900ML, DARK BR0WN LIQUID. KUB SHOWS POSSIBLE ILLIUS. CALLED DR CANTU, NO ANSWER, LEFT MSG TO CALL BACK.
--- NOTE | 2018-07-09 18:28 | NUR ---
CALLED DR CANTU AGAIN. TELEPHONE ORDER TO PLACE NG TUBE TO SUCTION. KEEP IV FLUIDS RUNNING. CAN HAVE SIPS OF WATER OR ICE CHIPS FOR COMFORT.
--- NOTE | 2018-07-09 19:05 | NUR ---
SHIFT REPORT RECEIVED. X-RAY IN ROOM TO CONFIRM NG TUBE PLACEMENT. PATIENT'S FAMILY IN ROOM. HOB ELEVATED. NG IN PLACE, NOT CONNTACTED TO SUCTION AT THIS TIME. PATIENT REPORTS DISCOMFORT IN HER THROAT AND RESTLESS LEGS. DENIES PRN PAIN MEDS AND MILD NAUSEA AT THIS TIME.
--- NOTE | 2018-07-09 19:16 | NUR ---
NG TUBE PLACED SUCCESSFULLY BY RN APRIL WHITEHEAD AND APRIL WANG. LIDOCAINE GEL USED. PT HAD SMALL SIPS OF WATER. PT TOLERATED WELL. X-RAY TO CONFIRM PLACEMENT. SUCTION WILL BE HOOKED UP WHEN PLACEMENT IS CONFIRMED BY RADIOLOGIST. ICE CHIPS AVAILABLE. NIGHT RN WILL ASK FOR ORDER FOR THROAT SPRAY AND LOZENGES.
--- NOTE | 2018-07-09 19:20 | NUR ---
CHARGE NURSE REPORT RECEIVED FROM [facility] PT WITH NG TUBE IN PLACE, AWAITING CONFIRMATION OF PLACEMENT. EXPRESSES HER CONCERN ABOUT VOMITING. REASSURANCES GIVEN, AT BEDSIDE.
--- NOTE | 2018-07-09 20:45 | NUR ---
NO REPORT AVAILABLE FOR NG TUBE PLACEMENT X-RAY. IMAGING DEPARTMENT CONTACTED AND WILL REVIEW THE PROGRESS ON THIS IMAGING.
--- NOTE | 2018-07-09 21:15 | NUR ---
X-RAY REPORT SHOWS SUCESSFUL PLACEMENT OF NG TUBE. CONNECTED NG TUBE TO SUCTION, INITIAL OUTPUT GREATER THAN 450MLS. TURNED TO LIWS. OUTPUT IS DARK BROWN IN COLOR. PATIENT REPORTS MILD NAUSEA. NO PAIN. DENIES NEED FOR PRN MEDICATION. ABD IS SOFT, TENDER, BOWEL SOUNDS HYPOACTIVE. DRESSING ON ALEX AND WOUND CDI. MIDLINE INSICION WITH STERI STRIPS, WELL APPROXIMATED. PATIENT DENIES FURTHER NEEDS. CALL LIGHT IN REACH.
--- NOTE | 2018-07-09 22:30 | NUR ---
ADMINISTERED HEPARIN, PT MOSTLY SLEEPY. DENIES NAUSEA OR PAIN, STATES SHE IS OK. NG WITH BRIGHT RED DRAINAGE, NOT CONTIUNES, INTERMITTENTLY. CONFIRMED WITH 2ND RN, PT DENIES ABD. PAIN. NG SUCTION SHUT OFF. PT AWARE, WILL NOTIFY DR CANTU. NEARLY 600 CC OUT SINCE NG PLACED.
--- NOTE | 2018-07-09 23:10 | NUR ---
DR CANTU NOTIFIED IN PERSON OF THE BLOOD IN THE NG TUBE. CONTINUE NG WITH LIS, IV PEPCID APPROVED, SINCE PT NPO.
--- NOTE | 2018-07-09 23:50 | NUR ---
PT RESTING IN BED WITH EYES CLOSED. PT WAKES EASILY TO VOICE. SCHEDULED MEDICATION ADMINISTERED. PT REMAINS DROWSY DURING MEDICATION ADMINISTRATION. DENIES FURTHER NEEDS. CALL LIGHT IN REACH.
--- NOTE | 2018-07-10 01:30 | NUR ---
PT RESTING IN BED WITH EYES CLOSED. PT WAKES EASILY TO VOICE. PT ASSESSMENT COMPLETE. PT DENIES PAIN, NAUSEA, OR SOB AT THIS TIME. CPOX IN PLACE. SAO2 98%. OXYMASK IN PLACE WHILE PT SLEEPING. BT'S ACTIVE. PT DENIES ABD TENDERNESS. MIDLINE INCISION WITH STERISTRIPS AND DRY/CRUSTY DRAINAGE. OLD COLOSTOMY SITE AND ALEX SITE AT LLQ COVERED WITH ABD PAD. ABD C/D/I. ALEX WITH SEROSANGUINEOUS DRAINAGE PRESENT. PT DENIES NEEDS AT THIS TIME. CALL LIGHT WITHIN REACH.
--- NOTE | 2018-07-10 03:00 | NUR ---
1 SBA TO THE BATHROOM AND BACK TO BED.
--- NOTE | 2018-07-10 04:08 | NUR ---
PT RESTING IN BED WITH EYES CLOSED. RESPIRATIONS EVEN AND UNLABORED, SAO2 98%. PT APPEARS TO BE SLEEPING. DOES NOT WAKE WHEN CUSTOMER FACILITIES SUPERVISOR ENTERS THE ROOM.
--- NOTE | 2018-07-10 05:02 | NUR ---
DRESSING CHANGE PERFORMED. SEROUS DRAINAGE PRESENT TO OLD GAUZE. PT TOLERATED DRESSING CHANGE WELL. DENIES FURTHER NEEDS AT THIS TIME. CALL LIGHT WITHIN REACH.
--- NOTE | 2018-07-10 07:41 | NUR ---
BEDSIDE REPORT RECEIVED FROM BRAULIO CHEN. WHITE BOARD UPDATED. 2L 02 OVERNIGHT. RA DURING DAY. D5LR INFUSING AT 125. PT AWAKE. NG TO LIS. DRESSING ON ABD C/D/I. MIDLINE INCISION WELL APPROXIMATED. NPO NOW. CANISTER FOR NG TUBE SUCTION NEEDS CHANGED. LOTS OF OUTPUT OVERNIGHT. BROWN COLOR. KUB PLANNED FOR TODAY.
--- NOTE | 2018-07-10 08:36 | NUR ---
PT SITTING AT EDGE OF BED. ZOFRAN 8MG GIVEN PRIOR TO KUB EXAM. PT OFF FLOOR AT 0835 FOR IMAGING. IV REMOVED D/T LEAKING. NG TUBE SUCTION CANISTER CHANGED AT 0800. AFTER SITTING UP PATIENT HAD 125ML GREEN/BROWN OUTPUT FROM NG. 20ML SEROSANGUINOUS DRAINAGE EMPTIED FROM ALEX DRAIN.
--- NOTE | 2018-07-10 09:23 | NUR ---
BACK TO BED AFTER RETURNING FROM IMAGING. NG TO LIS. NEW IV PLACED IN LFA. PEPCID AND HEPARIN ADMINISTERED PER ORDER. ALEX DRAIN EMPTIED. 70ML SEROSANGUINOUS DRAINAGE.
--- NOTE | 2018-07-10 09:52 | NUR ---
PATIENT IN BED TALKING TO . CALL LIGHT IN REACH. NO FURTHER NEEDS AT THIS TIME.
--- NOTE | 2018-07-10 11:41 | NUR ---
PATIENT AND AMBULATED IN HALLS. MAG RIDER INFUSING NOW. UP TO BATHROOM TO VOID 200ML JOSEPH URINE. TOLERATED WALK WELL. SITTING AT BEDSIDE NOW.
--- NOTE | 2018-07-10 13:45 | NUR ---
PT IN BED, NG TUBE IN. PT IN PAIN, AND VERY DISCOURAGED. JOHN BY HER SIDE. BOWEL BLOCKAGE IS CAUSING A PROBLEM. PT REQUESTED PRAYER, BROUGHT PT A PRAYER SHAWL. WILL FOLLOW NEEDED
--- NOTE | 2018-07-10 13:58 | NUR ---
PATIENT IN BED RESTING WITH EYES CLOSED. CALL LIGHT IN REACH. NO FURTHER NEEDS AT THIS TIME.
--- NOTE | 2018-07-10 15:19 | NUR ---
PT HAD VISITOR IN ROOM. AT BEDSIDE. AMBULATING IN HALLS NOW.
--- NOTE | 2018-07-10 15:44 | NUR ---
ALEX DRAIN EMPTIED. NG TUBE REAPPLIED AFTER WALK TO LIS. URINE IN HAT EMPTIED. BACK TO BED NOW. DRESSING CHANGED TO LUQ OF ABD. TOLERATED WELL. GAUZE ABD AND TAPE APPLIED. STERI STRIPS INTACT UNDER DRESSING.
--- NOTE | 2018-07-10 17:06 | NUR ---
KUB THIS MORNING. GAS STILL PRESENT IN BOWELS. ENCOURAGE AMBULATION. TWO WALKS ON THIS SHIFT. POSITIVE FLATUS. D5LR @ 125. 2GM MAG RIDER TODAY. ALEX TO LLQ. GOOD OUTPUT OF SEROSANGUINOUS DRAINAGE. DRESSING TO LUQ CHANGE BID WITH DRY GAUZE FOR PACKING AND ABD TO COVER WITH TAPE. NPO, CLEAR LIQUIDS FOR COMFORT. NG TUBE TO LIS. SBA TO AMBULATE. 1-2L O2 VIA NC WHEN SLEEPING. TORADOL X1 THIS MORNING. PAIN WELL CONTROLLED.
--- NOTE | 2018-07-10 18:37 | NUR ---
PATIENT SITTING ON SIDE OF BED FEELIN A LITTLE NAUSIOUS. RN NOTIFIED. CALL LIGHT IN REACH. NO FURTHER NEEDS AT THIS TIME.
--- NOTE | 2018-07-10 19:30 | NUR ---
REPORT RECEIVED, PT RESTING IN BED, ON CPOX, O2 SAT 95%, NG SUCTION TO LIWS @ 90, PT DENIES ANY NEEDS AT THIS TIME, DENIES ANY PAIN, ABDOMINAL WOUND DRESSING VISUALIZED, C/D/I, IV FLUIDS INFUSING PER EMAR WNL, NO REQUESTS AT THIS TIME, CALL LIGHT WITHIN REACH, FALL PRECAUTIONS IN PLACE.
--- NOTE | 2018-07-10 20:30 | NUR ---
PT RESTING IN BED, AOX4, APPROPRIATE, SHIFT ASSESSMENT COMPLETE, EVENING MEDS GIVEN, TOLERATED WELL, IV FLUIDS INFUSING PER EMAR WNL, NG TUBE TO LIWS, PT TOLERATING WELL, ALEX DRAIN INTACT, ABDOMINAL DRESSING C/D/I, PT STATES THAT SHE HAS 3/10 PAIN RELATING TO HER ABODMENT, PT GIVEN PRN TORADOL PER EMAR. PT'S LS CLEAR, BT HYPOACTIVE, NO REQUESTS AT THIS TIME, ON RA, DENIES SOB/CP, DENIES N/V/D, CALL LIGHT WITHIN REACH, FALL PRECAUTIONS IN PLACE.
--- NOTE | 2018-07-10 23:06 | NUR ---
PT ASSISTED FROM BED TO BATHROOM, PT TOLERATED AMBULATION WELL, NO C/O PAIN, NO C/O SOB/CP, PT VOIDED 250 MLS OF CONCENTRATED URINE, PT BACK TO BED, IV FLUIDS INFUSING PER EMAR WNL, NG TUBE TO LIWS, DRAINING WNL, NO FURTHER REQUESTS AT THIS TIME, CALL LIGHT WITHIN REACH. FALL PRECAUITONS IN PLACE. PT ON 2L VIA OXY MASK WHILE SHE SLEEPS, CPOX ON.
--- NOTE | 2018-07-11 00:30 | NUR ---
PT RESTING IN BED, EYES CLOSED, BREATHS EVEN, ON 2LNC WHILE SLEEPING, CPOX ON, O2 SAT > 95%, NG TUBE TO LIWS, NO REQUESTS AT THIS TIME, IV FLUIDS INFUSING PER EMAR WNL, CALL LIGHT WITHIN REACH, FALL PRECAUTIONS IN PLACE.
--- NOTE | 2018-07-11 02:00 | NUR ---
PT RESTING IN BED, EYES CLOSED, BREATHS EVEN, UNLABORED, NG TUBE TO LIWS, IV FLUIDS INFUSING PER EMAR WNL, CALL LIGHT WITHIN REACH, FALL PRECAUITONS IN PLACE, NO REQUESTS AT THIS TIME, ON 2LNC WHEN SLEEPING, O2 SAT > 95%.
--- NOTE | 2018-07-11 04:30 | NUR ---
PT AWAKE, STATING THAT SHE WOULD LIKE TO GO FOR A WALK. BANDAGE REPLACED ON PT'S NOSE WELL IT WAS NOTED TO BE COMING OFF FOR STAT LOCK OF NG TUBE, PT WALKED A FEW LAPS IN THE HALLS INDEPENDENTLY, TOLERATED WELL, PT BACK TO BED NOW. NG TUBE TO LIWS, IV FLUIDS INFUSING PER EMAR WNL. ABD DRESSING CHANGED ON ABDOMEN, PT TOLERATED WELL. GRANULATION TISSUE NOTED IN WOUND BED, DRY GAUZE PACKING PLACED INTO WOUND, VERY SMALL AMOUNT OF SEROSANGUINEOUS DRAINAGE ON OLD GAUZE, PT DENIES ANY PAIN AT THIS TIME, DENIES ANY REQUESTS. CALL LIGHT WITHIN REACH. FALL PRECAUTIONS IN PLACE.
--- NOTE | 2018-07-11 06:03 | NUR ---
PT AOX4 THIS SHIFT, SLEPT WELL. 2LNC WITH OXY MASK WHILE SLEEPING. NG TUBE SET TO LIWS. PT UP TO BATHROOM SEVERAL TIMES TODAY. SMALL SOFT/LIQUID STOOL THIS MORNING, PT GIVEN PRN TORADOL FOR PAIN X1 THIS SHIFT, NO OTHER C/O PAIN THIS SHIFT. WALKED SEVERAL LAPS IN STRINGER INDEPENDENTLY, VSS. ALEX DRAIN DRAINING SEROSANGUINEOUS DRAINAGE WNL, IV FLUIDS INFUSING PER EMAR WNL. NPO WITH LIQUIDS FOR COMFORT.
--- NOTE | 2018-07-11 06:40 | NUR ---
PT C/O NAUSEA THIS MORNING, PT GIVEN PRN ZOFRAN PER EMAR, PT TOLERATED WELL, NG TUBE DRAINING WNL, SET TO LIWS, NO FURTHER REQUESTS AT THIS TIME, ON 2LNC, O2 SAT 95%, IV FLUIDS INFUSING PER EMAR WNL, CALL LIGHT WITHIN REACH, FALL PRECAUTIONS IN PLACE.
--- NOTE | 2018-07-11 07:30 | NUR ---
PT COMPLAINS OF NAUSEA, RN NOTIFIED AND ZOFRAN ADMINISTERED.
--- NOTE | 2018-07-11 07:54 | NUR ---
BEDSIDE REPORT RECEIVED FROM DEJA CHEN. WHITE BOARD UPDATED. PATIENT AWAKE. AMBULATED HALLS AT 0400 D/T INABILITY TO SLEEP. NG TO LIS NOW. D5LR @125. TORADOL AND ZOFRAN GIVEN OVERNIGHT. 4MG ZOFRAN GIVEN AT 0715. REPORTS POSITIVE FLATUS. PLAN TO CHANGE NG CANISTER THIS MORNING.
--- NOTE | 2018-07-11 08:00 | NUR ---
PT APPERAS TO BE RESTING, EYES CLOSED, BREATHS EVEN AND UNLABORED. PT IS ON ON 2L NC, O2 SATS 95%. NG TUBE INTACT LOW INTERMITTENT SUCTION.PT REPORTS NAUSEA HAS RESOLVED. NO OTHER NEEDS AT THIS TIME.
--- NOTE | 2018-07-11 08:30 | NUR ---
MEDICATIONS GIVEN. IV PATENT, NO S/S OF INFECTION AT IV SITE. CALL LIGHT IN REACH.
--- NOTE | 2018-07-11 08:40 | NUR ---
PT OFF [facility] FOR IMAGING.
--- NOTE | 2018-07-11 08:41 | NUR ---
pt off floor for imaging via wheelchair with product development technician. linens changed while she is gone. toradol given prior to leaving floor.
--- NOTE | 2018-07-11 08:55 | NUR ---
PT BACK FROM IMAGING. PT AMBULATED TO CHAIR INDEPENDANTLY, GAIT STAEDY AND SEEMED TO TOLLERATE WELL. PT IN CHAIR, NGTUBE RE-CONNECTED AND ON LOW INTERMITTENT SUCTION, O2 SAT MONITOR ON AND READS 96% ON ROOM AIR. nO OTHER REQUESTS AT THIS TIME, CALL LIGHT IN REACH.
--- NOTE | 2018-07-11 10:00 | NUR ---
PT IS UP IN CHAIR VISTING WITH HER DAUGHTER. pT APPEARS TO BE COMFORTABLEAND DENIES PAIN AT THIS TIME. CALL LIGHT IN REACH. NO OTHER NEEDS AT THIS TIME.
--- NOTE | 2018-07-11 11:05 | NUR ---
pt ambulating halls now.
--- NOTE | 2018-07-11 12:16 | NUR ---
PT SITTING IN CHAIR, VISITING WITH DAUGHTER. STILL WITH NG TUBE. LET THEM VISIT, WILL FOLLOW NEEDED
--- NOTE | 2018-07-11 12:24 | NUR ---
pt sleeping soundly in bed at this time.
--- NOTE | 2018-07-11 12:50 | NUR ---
PT APPEARS TO BE SLEEPING. RESPRIATIONS ARE EVEN AND UNLABORED. NO OTHER NEEDS AT THIS TIME. CALL LIGHT IN REACH.
--- NOTE | 2018-07-11 12:50 | NUR ---
PT APPEARS TO BE SLEEPING SOUNDLY, RESPRIATORY ARE EVEN AND UNLABORED.
--- NOTE | 2018-07-11 14:00 | NUR ---
PT IN BED EYES CLOSED. PT AWAKES EASILY TO VERBAL STIMUL. PT DENIES PAIN AND NAUSEA AT THIS TIME. PT STATES " SHE FEELS LIKE SHE IS DOING BETTER". PT DENIES ANY FURTHER NEEDS AT THIS TIME.
--- NOTE | 2018-07-11 15:00 | NUR ---
PT IN BED WITH DAUGHTER AT BEDSIDE. NO COMPLAINTS AT THIS TIME. CALL LIGHT IN REACH. NO OTHER NEEDS AT THIS TIME.
--- NOTE | 2018-07-11 16:24 | NUR ---
PATIENT UP TO BATHROOM STBY, AND NOW AMBULATING IN HALLWAYS. APPEARS TO BE TOLERATING ACTIVITY WELL. NO COMPLAINTS OF PAIN.
--- NOTE | 2018-07-11 19:08 | NUR ---
RECEIVED REPORT FROM APRIL MESSINA. pt ALERT AND AWAKE, AT BEDSIDE. NO REQUESTS AT THIS TIME. CALL LIGHT WITHIN REACH. NEW CANISTER FOR NG TUBE.
--- NOTE | 2018-07-11 20:48 | NUR ---
ASSESSMENT AND MEDICATIONS DUE. ASSESSMENT DONE. DRESSING TO ABDOMEN CHANGED PER ORDERS, SCANT SEROSANGUINEOUS DRAINAGE NOTED ON GAUZE. BOWEL SOUNDS ACTIVE. ALEX DRAIN EMPTIED, SEROSANGUINEOUS. NG TUBE TO INTERMITANT SUCTION. LIGHTS OFF FOR COMFORT. CALL LIGHT WITHIN REACH. NO REQUESTS AT THIS TIME.
--- NOTE | 2018-07-11 22:10 | NUR ---
ROUNDED CHARGE. PATIENT IS RESTING IN BED. PATIENT DENIES ANY COMMENTS, QUESTIONS OR CONCERNS. CALL LIGHT IN REACH.
--- NOTE | 2018-07-12 00:29 | NUR ---
pt UP AMBULATING IN STRINGER.
--- NOTE | 2018-07-12 00:32 | NUR ---
PATIENT ASSSITED TO THE RESTROOM A SBA. PATIENT IS STEADY ON HER FEET. PATIENT IS UP AMBULATING IN HALLWAY AND WILL ALERT STAFF WHEN SHE IS BACK IN HER ROOM. PATIENT IS STEADY ON HER FEET.
--- NOTE | 2018-07-12 00:39 | NUR ---
PATIENT COMPLETED X3 LAPS. PATIENTS NG SECUREMENT DEVICE ON NOSE REPLACED. PATIENT IS NOW BACK IN BED RESTING. NG HOOKED UP TO LWIS. IV INFUSING. SCDS IN PLACE. PULSE OX IN USE AND READINGS ARE WNL. PATIENT DENIES ANY FURTHER NEEDS. CALL LIGHT IN REACH.
--- NOTE | 2018-07-12 03:04 | NUR ---
ROUNDED ON pt. ASSESSMENT DONE. NO CHANGES FROM PRIOR ASSESSMENT. pt DENIES PAIN. CALL LIGHT WITHIN REACH. NO REQUESTS AT THIS TIME.
--- NOTE | 2018-07-12 05:03 | NUR ---
pt RESTED ON AND OFF DURING SHIFT. CPOX, SATS >90 WHILE SLEEPING. NC TUBE SET TO LIS. AMBULATED IN HALLS X3, INDEPENDENT. NO PRN PAIN MEDS GIVEN. ALEX DRAINING SEROSANGUINEOUS. IV RUNNING D5LR AT 125 MLS/HR. NPO WITH "SIPS FOR COMFORT". DRESSING CHANGED ON ABD WOUND. USES CALL LIGHT APPROPRIATELY.
--- NOTE | 2018-07-12 05:20 | NUR ---
IV PUMP BEEPING. NEW BAG OF FLUIDS HUNG (SEE MAR). pt RESTING WITH EYES CLOSED. RESPIRATIONS REGULAR. CALL LIGHT WITHIN REACH.
--- NOTE | 2018-07-12 06:58 | NUR ---
pt UP AMBULATED X1 IN STRINGER. REPORTED NAUSEA, PRN ZOFRAN GIVEN (SEE MAR). REQUESTED PAIN MEDICATION FOR 3/10 PAIN. REFUSED DILAUDID "THE DOCTOR DOESN'T WANT ME TAKING THAT AND MY PAIN ISN'T THAT BAD". CHECKED BACK AND pt REPORTED "I FEEL A LITTLE BETTER". ASSISTED TO BATHROOM. WILL CALL WHEN READY TO GO BACK TO BED.
--- NOTE | 2018-07-12 07:25 | NUR ---
REPORT RECEIVED FROM APRIL ROSAS. PT RESTING SUPINE IN BED, SIPPPING APPLE JUICE AND ICE CHIPS AT BEDSIDE FOR COMFORT. PT DENIES NEEDS AND STATES PAIN IS TOLERABLE AND DENIES NAUSEA. CALL LIGHT AN DH20 IN REACH.
--- NOTE | 2018-07-12 07:37 | NUR ---
jarad gamino with imaging was notified about need for XRAY this morning.
--- NOTE | 2018-07-12 07:56 | NUR ---
pt reports nasuea so iv zofran administered and pt given throat lozenge for comfort per request. Assessment completed. pt denies furhter needs. NG wall suction container emptied of 270 mls of clear yellow/brown tinged fluid. Pt to imaging for xray.
--- NOTE | 2018-07-12 08:03 | NUR ---
Pt back from imaging, reports iv site is stinging. Flushed with ns reveals leaking at iv site with increased stinging. will attempt new iv start and dc current iv.
--- NOTE | 2018-07-12 08:36 | NUR ---
Abdominal dressing changed, no s/sx's of infection noted, dry guaze and abd pad applied with medipore tape. midline incision is well approxiamated. wolf drain emptiied of 60 mls of ss drainage. call light and h20 in reach. ng tube hooked up to low intermittant suction. no further requests voiced.
--- NOTE | 2018-07-12 09:08 | NUR ---
PATIENT RESTING IN BED. VITAL SIGNS AND I&O DONE. CALL LIGHT WITHIN REACH. NO OTHER NEEDS AT THIS TIME
--- NOTE | 2018-07-12 09:52 | NUR ---
pt reports nausea, and reports needing to use the restroom. IV phenergan admin slow ivp and pt disconnected from low intermittant wall suction to use restroom. Imaging in to take pt for small bowel follow through xrays. Procedure was explained to patient and pt denies further concerns or requests. Pt departs room in w/c with radiology staff at this time and agrees to use call light upon arrival back in room.
--- NOTE | 2018-07-12 11:24 | NUR ---
PT IN RT FOR BOWEL FOLLOW THRU X-RAY. MET WITH PT'S DAUGHTER, SHE IS ANXIOUS BUT HOPEFUL. WILL CONTINUE TO FOLLOW NEEDED
--- NOTE | 2018-07-12 13:58 | NUR ---
PATIENT RESTING IN BED. VITAL SIGNS AND I&O DONE. CALL LIGHT WITHIN REACH. NO OTHER NEEDS AT THIS TIME
--- NOTE | 2018-07-12 15:20 | NUR ---
PT RESTING IN SEMI FOWLERS POSITION IN BED, PT ASSISTED UPT O RESTROOM SBA AND THEN BACK TO BED WITH ASSISTANCE FROM LYNETTE JONES. PT BACK TO LOW INTERMITTANT SUCTION. ICE CHIPS AND CALL LIGHT IN REACH. WARM BLANKET PROVIDED PER LYNETTE JONES. PT DENIES NAUSEA, PAIN OR HAVING ANY OTHER SYMPTOMS,CONCERNS OR NEEDS.
--- NOTE | 2018-07-12 17:00 | NUR ---
PT RESTING SUPINE IN BED WITH HOB ELEVATED. PT REPORTS FEELING TIRED BUT OTHERWISE DENIES NAUSEA, PAIN OR SOB. VS'S REMAIN STABLE. NG TUBE CONTINUES ON LOW INTERMITTANT WALL SUCTION. FAMILY IN VISITING PATIENT.
--- NOTE | 2018-07-12 17:20 | NUR ---
Dr Velasco updated on pt's result's of small bowel follow through xrays. New order received to remove ng tube. NG tube removed without difficulty and pt tolorated well. Pt states "it still feels sore like it's still in their." pt requested and received prn po lozenge. Pt also given fresh ice water and jello per her request. Pt denies further needs. family remains at bedside.
--- NOTE | 2018-07-12 17:35 | NUR ---
PATIENT SITTING UP IN BED. AND RN IN ROOM. VITAL SIGNS AND I&O DONE. CALL LIGHT WITHIN REACH. NO OTHER NEEDS AT THIS TIME
--- NOTE | 2018-07-12 17:56 | NUR ---
PT REMIANED ALERT AND ORIENTED THROUGHOUT THE DAY AND HAS REPORTED "I JUST FEEL TIRED, I HAVENT HAD ANYTHING TO EAT IN LIKE A WEEK AND I'VE BEEN THROUGH A LOT". PT HAD A SMALL BOWEL FOLLOW THROUGH THAT REVEALED THAT THERE WAS NO OBSTRUCITON, MD UPDATED AND PER MD ORDER NG TUBE WAS REMOVED. PT DENIES NAUSEA AND STATES DISCOMFORT IS TOLORABLE. MD STATES HE WILL ATTEMPT TO COME SEE PATIENT TONIGHT. PT VOIDS QS CLEAR YELLOW URINE. PT HAD MULTIPLE LOOSE BM'S TODAY AFTER INGESTING PO CONTRAST DYE FOR STUDY. PT HAS STATES THAT PAIN HAS BEEN TOLERABLE THROUGHOUT THE DAY WITH ONLY PRN PO LOZENGES AND SCHEDULED MEDICATIONS. PT WAS ALSO ADVANCED TO CLEAR LIQUID DIET.
--- NOTE | 2018-07-12 19:23 | NUR ---
IN ROOM FOR REPORT, PT IS AWAKE IN BED. SHE DENIES NEEDS AT THIS TIME, CALL LIGHT IS WITHIN REACH.
--- NOTE | 2018-07-12 20:24 | NUR ---
IN ROOM TO ASSESS PT, SHE RATES PAIN AT 1/10 AND DENIES NEED FOR PAIN MEDICINE. SHE IS TOLERATING JELLO AND WATER AT THIS TIME. INCISION LOOKS GOOD AND DRESSING CHANGED WITH SOME SEROUS FLUID. SHE DENIES NEEDS AT THIS TIME. CALL LIGHT IS CLOSE.
--- NOTE | 2018-07-12 22:16 | NUR ---
VITALS AND I&OS DONE AND CHARTED. BEDSIDE TABLE AND CALL LIGHT IN REACH. PT NEEDS NOTHING AT THIS TIME.
--- NOTE | 2018-07-12 22:26 | NUR ---
ASSITED PT TO THE RESTROOM AND BACK TO BED. SHE DENIES NEEDS AT THIS TIME. CALL LIGHT IS WITHIN REACH.
--- NOTE | 2018-07-13 00:42 | NUR ---
PT IS RESTING WITH EYES CLOSED, RESPIRATIONS ARE EVEN AND NONLABORED. CALL LIGHT IS CLOSE.
--- NOTE | 2018-07-13 01:17 | NUR ---
PT CALLED TO USE THE RESTROOM THEN BECAME NAUSEATED. SHE HAD 200 ML OF EMESIS, ZOFRAN WAS ADMINISTERED. SHE DENIES FURTHER NEEDS.
--- NOTE | 2018-07-13 02:22 | NUR ---
PATIENT GIVEN 12.5MG IV PHENERGAN IN 20MLS NS SIVP FOR NAUSEA.
--- NOTE | 2018-07-13 04:03 | NUR ---
PT IS RESTING WITH EYES CLOSED, RR IS EVEN AND NONLABORED. CALL LIGHT IS CLOSE.
--- NOTE | 2018-07-13 06:48 | NUR ---
PT HAS EMESIS X2 DURING THE NIGHT ON A CLEAR LIQUID DIET. SHE WALKED THIS MORNING TO GET THINGS MOVING. ALEX DRAIN PUT OUT 75MLS THROUGH THE NIGHT OF SEROUS FLUID. DRESSING CHANGES ARE Q SHIFT AND WHEN CHANGED LAST NIGHT THERE WAS SEROUS FLUID ON GAUZE AROUND ALEX DRAIN. SHE HAS D5LR AT 125 AND IS SBA WHEN UP. SHE DENIES PAIN.
--- NOTE | 2018-07-13 07:05 | NUR ---
PT RESTING SUPINE IN BED, EYES CLOSED AND RESPIRATIONS EVEN AND UNLABORED. EYES CLOSED AND PT APPEARS TO BE SLEEPING COMFORTABLY. CALL LIGHT AND H20 IN REACH.
--- NOTE | 2018-07-13 08:19 | NUR ---
ASSESSMENT COMPLETED. ABD DRESSING CHANGED WITH NEW STERILE GUAZE ABD PAD AND TAPE. AM MEDS ADMINISTERED. PT STATES SHE FEELS SHE SLEPT WELL. CALL LIGHT AND H20 IN REACH. PT DENIES NAUSEA AND STATES SHE WILL TRY TO HAVE SOME OF HER PO CLEAR TRAY WHICH IS AT BEDSIDE.
--- NOTE | 2018-07-13 09:48 | NUR ---
pt resting in semi fowlers position, alert and oriented. pt states "i'm just going to take a short nap and then I'd like to go for a walk". Pt encouraged to not push fluids and to only take in small amounts of clear liquids as tolerable per Dr. Velasco's request. Pt agrees and states "i've only had a few bites of jello this morning". IV maintenance fluids continue to infuse. call light and h20 remains in reach and pt denies needs.
--- NOTE | 2018-07-13 09:52 | NUR ---
PATIENT RESTING IN BED. VITAL SIGNS AND I&O DONE. CALL LIGHT WITHIN REACH. NO OTHER NEEDS AT THIS TIME
--- NOTE | 2018-07-13 11:48 | NUR ---
Pt resting supine in bed with hob elevated. Pt states "My stomach just still doesn't feel right and I don't have any energy". Pt denies nausea, call light and h20 in reach. Pt requested and received clear apple ensure. Pt denies further needs or requests.
--- NOTE | 2018-07-13 12:47 | NUR ---
PT RESTING SUPINE IN BED WITH HOB ELEVATED. CALL LIGHT AND H20 IN REACH. PT DENIES NEEDS. PT STATES SHE IS CONTINUING TO TAKE IT SLOW WITH PO FLUIDS AND DENIES NASUEA. IV MAINTENANCE FLUIDS CONTINUE TO INFUSE.
--- NOTE | 2018-07-13 13:47 | NUR ---
pt resting supine in bed, a/o x4 watching tv. pt denies nausea. tolorating very small amounts of clear fluids. call light and h20 in reach. warm blanket and fresh ice water and ice chips provided per pt request. new bag of iv maintenance fluids also hung and infusing. no further needs or concerns voiced.
--- NOTE | 2018-07-13 14:04 | NUR ---
PATIENT RESTING IN BED. VITAL SIGNS DONE. CALL LIGHT WITHIN REACH. NO OTHER NEEDS AT THIS TIME
--- NOTE | 2018-07-13 15:15 | NUR ---
PATIENT IN BED. IV COVERED. PATIENT WALKS TO BATHROOM TO TAKE A SHOWER. ONE PERSON ASSISTING. PATIENT BACKS TO BED. WARM BLANKETS PROVIDED. CALL LIGHT WITHIN REACH. NO OTHER NEEDS AT THIS TIME
--- NOTE | 2018-07-13 15:37 | NUR ---
Dressing changed with ns, sterile guaze and tape after pt finished with shower. Call light and h20 in reach and pt provided with fresh clear ensure. Pt tolorated 4 oz of prior 8oz ensure. Pt continues to deny nausea or pain. States she is passing some flatulance.
--- NOTE | 2018-07-13 15:45 | NUR ---
PATIENT UP AMBULATING WITH HER DAUGHTER ONE LAP.
--- NOTE | 2018-07-13 17:09 | NUR ---
PATIENT RESTING IN BED. VITAL SIGNS AND I&O DONE. CALL LIGHT WITHIN REACH. NO OTHER NEEDS AT THIS TIME
--- NOTE | 2018-07-13 17:32 | NUR ---
PT REPORTS NASUEA, REQUESTED AND RECEIVED PRN IV ZOFRAN. PT DENIES HAVING ANY EMISIS. CALL LIGHT AND H20 IN REACH. NO FURTHER NEEDS OR CONCERNS VOICED.
--- NOTE | 2018-07-13 18:13 | NUR ---
PT REMAINED ALERT AND ORIENTED X4 THROUGHOUT THE DAY. PT HAD ONE EPISODE OF NAUSEA BUT NO EMISIS THROUGHOUT THE SHIFT. PT TOLORATES SMALL AMOUNT OF CLEAR LIQUIDS THROUGH THE DAY WITH SMALL LOOSE STOOLS AND HAS BEEN PASSING SOME GAS. PT STATES OVER ALL SHE FEELS LIKE SHE HAS NO ENERGY AND THAT SHE FEELS FATIGUED AFTER WALKING IN STRINGER. VSS THROUGH THE DAY, VQS URINE OUTPUT. BT'S ACTIVE. PT DENIES PAIN THROUGHOUT THE DAY. DSG CHANGE Q SHIFT. PT SHOWERED TODAY PER DR MULLEN APPROVAL. STATES IT IS FINE TO HAVE WATER RUN RIGHT OVER WOUND AND ALEX DRAIN FOR SHOWERS. PT USES CALL LIGHT APPROPRIATLEY. COMPLIANT WITH CARE. AMBULATES INDEPENDANTLY IN ROOM WITH IV DISCONECTED.
--- NOTE | 2018-07-13 19:35 | NUR ---
RECEIVED REPORT FROM APRIL FITZPATRICK. pt ALERT AND AWAKE. REQUESTED MIXED VALENCIA FLAVORED ENSURE CLEAR. WHITEBOARD UPDATED. NO FURTHER REQUESTS AT THIS TIME. CALL LIGHT WITHIN REACH.
--- NOTE | 2018-07-13 20:56 | NUR ---
PT RECEIVED IV PHENERGAN 12.5 MG DILUTED IN 20MLS NS. 19 MLS INFUSED WHEN PT REPORTED PAIN. THERE WAS REDNESS AROUND THE SITE. IV FLUSHED AND HAD BLOOD RETURN BUT PT STATED IT WAS PAINFUL AND HAD HURT SINCE INSERTION. IV REMOVED AND CATH TIP IS INTACT. WILL ATTEMPT NEW IV INSERTION, PT STATES SHE IS A DIFFICULT IV START.
--- NOTE | 2018-07-13 21:23 | NUR ---
NOT ABLE TO GET IV STARTED, OPERATION SUPERVISOR CALLED TO START IV.
--- NOTE | 2018-07-13 22:04 | NUR ---
VITALS AND I&OS DONE AND CHARTED. BEDSIDE TABLE AND CALL LIGHT IN REACH.
--- NOTE | 2018-07-13 22:05 | NUR ---
THERE WAS A DELAY IN ADMINISTERING PEPCID D/T IV INFILTRATION. AT THIS TIME PT HAS A NEW IV AFTER 3 RN ATTEMPTS. PEPCID NOW ADMINISTERED AND PT IS BACK ON IV FLUID. SHE DENIES FURTHER NEEDS. CALL LIGHT IS WITHIN REACH.
--- NOTE | 2018-07-13 22:24 | NUR ---
ASSESSMENT DUE. pt STATES PAIN 06/28. CURRENTLY FEELING NAUSEATED. STATES IT COMES IN WAVES. ASSESSMENT DONE. NO REQUESTS AT THIS TIME. CALL LIGHT WITHIN REACH.
--- NOTE | 2018-07-14 00:02 | NUR ---
EXERCISE EQUIPMENT REPAIR TECHNICIAN REPORTED pt REQUESTED NAUSEA MEDICATION. pt SITTING ON SIDE OF BED WITH EMESIS BAG, NO EMESIS. FREQUENT BELCHES. UP TO TOILET AND BACK TO BED. SCANT LIQUID BM. PRN NAUSEA MEDICATION GIVEN ALONG WITH GAS RELIEF (SEE MAR). CALL LIGHT WITHIN REACH. NO FURTHER REQUESTS AT THIS TIME.
--- NOTE | 2018-07-14 00:31 | NUR ---
ROUNDED ON pt. REPORTED "THE NAUSEA IS BETTER". NO REQUESTS AT THIS TIME. CALL LIGHT WITHIN REACH.
--- NOTE | 2018-07-14 01:50 | NUR ---
CALL LIGHT ON. ASSISTED TO TOILET AND BACK TO BED. REPORTS NAUSEA AND PAIN 5/10. PRN PAIN MED GIVEN WILL REASSESS NAUSEA AFTER PAIN MEDICATION HAS TAKEN EFFECT. CALL LIGHT WITHIN REACH. NO FURTHER REQUESTS AT THIS TIME.
--- NOTE | 2018-07-14 03:47 | NUR ---
ROUNDED ON pt. RESTING WITH EYES CLOSED, RESPIRATIONS REGULAR, RATE = 16. CALL LIGHT WITHIN REACH.
--- NOTE | 2018-07-14 04:57 | NUR ---
UP TO TOILET AND BACK TO BED. DRESSING CHANGE DONE. SEROUS DRAINAGE. ALEX DRAIN EMPTIED. CALL LIGHT WITHIN REACH. DENIES NAUSEA. NO REQUESTS AT THIS TIME.
--- NOTE | 2018-07-14 05:02 | NUR ---
VITALS AND I&OS DONE AND CHARTED. HELPED PT TO THE BATHROOM AND BACK TO BED. BEDSIDE TABLE AND CALL LIGHT IN REACH.
--- NOTE | 2018-07-14 05:28 | NUR ---
pt RESTED ON AND OFF DURING SHIFT. NAUSEA DURING FIRST PART OF SHIFT, PRN MEDS X2, SCANT EMESIS. PAIN MEDICATION X1. MULTIPLE LIQUID STOOLS, PASSING GAS. D5LR AT 125 MLS/HR. TOLERATING CLEAR LIQUID DIET. SBA. DRESSING CHANGED. ALEX DRAIN SEROUS FLUID. USES CALL LIGHT APPROPRIATELY.
--- NOTE | 2018-07-14 08:13 | NUR ---
PT RESTING SUPINE IN BED ALERT AND ORIENTED. PT REPORTS SOME ABDOMINAL DISCOMFORT AND PER HER REQUEST IV TYLENOL WAS ADMINISTERED INSTEAD OF PO PT HAS BEEN EXPERIENCING NAUSEA ON AND OFF AND WAS WORRIED IT WOULDN'T STAY DOWN. ASSESSMENT COMPLETED AND ALEX DRAIN EMPTIED. PT ALSO REPORTS EXCESS BELCHING WITH SOME FLATUS AND SMALL BM'S INTERMITTANTLY. PT REQUESTED AND RECEIVED PRN SIMETHICONE ORAL DROPS -SEE AUG. PT ASSISTED UP TO RESTROOM AND AGREES TO USE CALL LIGHT WHEN FINISHED. PT DENIED ANY FURHTER NEEDS OR REQUESTS.
--- NOTE | 2018-07-14 08:50 | NUR ---
PATIENT UP AMBULATING WITH HER . PATIENT WALKS ONE LAP IN HALLWAY.
--- NOTE | 2018-07-14 09:48 | NUR ---
PATIENT RESTING IN BED. IN ROOM. VITAL SIGNS AND I&O DONE. CALL LIGHT WITHIN REACH. NO OTHER NEEDS AT THIS TIME
--- NOTE | 2018-07-14 11:24 | NUR ---
PT REPORTS MORE GAS AND BELCHING. PRN SIMETHICONE ADMINISTERED. NEW BAG OF MAINTENANCE FLUIDS INFUSING. CALL LIGHT AND H2O IN REACH. PT DENIES FURTHER NEEDS OR CONCERNS. FAMILY AT BEDSIDE.
--- NOTE | 2018-07-14 13:36 | NUR ---
PATIENT RESTING IN BED. IN ROOM. VITAL SIGNS AND I&O DONE. CALL LIGHT WITHIN REACH. NO OTHER NEEDS AT THIS TIME
--- NOTE | 2018-07-14 15:25 | NUR ---
PT SITTING UP AT SIDE OF BED, REPORTS MIGRAIN PAIN OF 3/10. STATES THAT IT IS A SHARP HEADACHE PAIN THAT IS WORSE WITH MOVEMENT AND IS THE SAME IT IS CHRONICALLY. PT STATES SHE NORMALLY HAS A MIGRAIN LIKE THIS ONCE A MONTH AND THAT SHE TAKES MAXALT 10MG AND REPEATS THIS DOSE IN TWO HOURSE IF PAIN PERSISTS. PT REQUESTS THIS TO BE ORDERED. DR CANTU NOTIFIED OF PT'S S/SX'S AND OF FACT THAT PT'S BT'S ARE MORE ACTIVE AND PT TOLORATING PO LIQUIDS BETTER WITH INCREASED GAS A DN FLATULANCE. NEW ORDERS RECEIEVED FRO MAXALT ODT AND FOR REGLAN. SEE ORDERS. NO FURHTER ORDERS RECEIVED. PT DENIES FURHTER REQUESTS OR CONCERNS.
--- NOTE | 2018-07-14 16:40 | NUR ---
PATIENT UP AND AMBULATING WITH HER DAUGHTER
--- NOTE | 2018-07-14 16:56 | NUR ---
PT UP AMBULATING IN HALLS. PT STATES MIGRAIN HEADACHE IS NOW TOLERABLE. PT AMBULATES WITH SLOW BUT STEADY GAIT.
--- NOTE | 2018-07-14 17:12 | NUR ---
PATIENT RESTING IN BED. DAUGHTER IN ROOM. VITAL SIGNS AND I&O DONE. CALL LIGHT WITHIN REACH. NO OTHER NEEDS AT THIS TIME
--- NOTE | 2018-07-14 18:00 | NUR ---
PT REMAINS ALERT AND ORIENTED THROUGHOUT THE DAY. PT TOLORATED CLEAR LIQUIDS THROUGHOUT MOST OF THE DAY ONLY REQUIRING PRN ZOFRAN IV ONCE. BT'S ACTIVE X4. PT HAS NEW RX FOR MAXALT PRN ODT FOR MIGRAIN HEADACHE. PT WAS UP AMBULATING IN HALLS SEVERAL TIMES TODAY AND REPORTS INCREASED FLATUS AND BELCHING WHICH PRN SIMETHICONE HAS HELPED WITH. PT ALSO HAS NEW ORDER FOR IV REGLAN Q6HRS. IV MAINTENANCE FLUIDS CONTINUE TO INFUSE AND PT VOIDS QS CLEAR YELLOW URINE. VSS.
--- NOTE | 2018-07-14 18:57 | NUR ---
IN TO CHECK ON PATIENT. PT REPORTS 3-/10 ABDOMINAL DISCOMFORT "IT FEELS LIKE MORE GAS IS JUST STUCK RIGHT THERE". PT REQUESTED AND RECEIVED PRN IV TYLENOL AND PRN SIMETHICONE AND ALSO REGLAN IV WAS ADMINISTERED. PT SITS UP TO EDGE OF BED AND EXPELS SEVERAL LONG BELCHES AND IS UP TO RESTROOM. PT DENIES FURTHER NEEDS OR CONCERNS. FAMILY AT BEDSIDE.
--- NOTE | 2018-07-14 19:03 | NUR ---
RECEIVED REPORT FROM APRIL ECHEVARRIA. pt ALERT AND AWAKE. DENIES NEEDING ANYTHING. WHITEBOARD UPDATED. CALL LIGHT WITHIN REACH.
--- NOTE | 2018-07-14 20:20 | NUR ---
ASSESSMENT AND MEDICATIONS DUE. ASSESSMENT DONE. BOWEL TONES ACTIVE. DENIES PAIN AND NAUSEA AT THIS TIME. MEDICATIONS GIVEN (SEE MAR). NO REQUESTS AT THIS TIME. CALL LIGHT WITHIN REACH.
--- NOTE | 2018-07-14 21:05 | NUR ---
PATIENT REQUESTED TO USE THE RESTROOM. I ASSISTED AND ONCE COMPLETED I DID THE VITALS AND I&OS.
--- NOTE | 2018-07-14 23:46 | NUR ---
ROUNDED ON pt. RESTING WITH EYES CLOSED, RESPIRATIONS REGULAR. RATE = 16. CALL LIGHT WITHIN REACH.
--- NOTE | 2018-07-15 01:20 | NUR ---
ROUNDED ON pt. RESTING WITH EYES CLOSED, RESPIRATIONS REGULAR, RATE = 14. CALL LIGHT WITHIN REACH.
--- NOTE | 2018-07-15 02:10 | NUR ---
MEDICATION DUE. ASSESSMENT DONE. AMBULATED TO TOILET AND BACK TO BED. MEDICATION GIVEN (SEE MAR). DENIES NAUSEA, STATES PAIN IS "OKAY". CALL LIGHT WITHIN REACH. FRESH WATER PROVIDED. NO FURTHER REQUESTS AT THIS TIME.
--- NOTE | 2018-07-15 05:16 | NUR ---
pt RESTED MOST OF SHIFT. NO NAUSEA OR EMESIS, DENIED PAIN. TOLERATING CLEAR LIQUIDS. BOWEL TONES ACTIVE X4. BM. IV FLUIDS RUNNING AT 125 MLS/HR. SBA. DRESSING CHANGED PER ORDER. ALEX DRAIN HAS SEROUS FLUID. USES CALL LIGHT APPROPRIATELY.
--- NOTE | 2018-07-15 05:59 | NUR ---
DRESSING CHANGE DONE. SMALL AMOUNT OF SEROUS DRAINAGE NOTED. SEROUS DRAINAGE NOTED IN ALEX DRAIN. pt UP TO TOILET, WILL CALL WHEN READY TO RETURN TO BED. CALL LIGHT WITHIN REACH.
--- NOTE | 2018-07-15 08:10 | NUR ---
PT aoX4. NO COMPLAINT OF NAUSEA. CLUING SOUNF CLAER. ACTIVE BOWLE TONES. ALEX DRANING SANGUIONS. ABDOMINAL DRESSING C/D/I. PEDIA PULES +3. NO EDEMA NOTED ON LOWER EXTREMERITES. iv C/D/I FLUSIING WELL 10 ML NS. D5LR @125ML. PT. C/O 10/26 [place]. ADMINISTERD MEDS.
--- NOTE | 2018-07-15 10:43 | NUR ---
PT UP AND WALKING IN HALLS. NO SIGNS OR SYMPTOMS OF DISTRESS.
--- NOTE | 2018-07-15 16:06 | NUR ---
PT UP TO SHOWER INDEPENDNENTLY. DRESSING CHANGE COMPLETE. PT IN BED RESTING WITH CALL LIGHT IN REACH
--- NOTE | 2018-07-15 19:05 | NUR ---
RECEIVED REPORT FROM APRIL VALIENTE. pt ALERT AND AWAKE. STATED PAIN IS "FINE". NO REQUESTS AT THIS TIME. IVF RATE CHANGED TO ORDERED RATE. CALL LIGHT WITHIN REACH.
--- NOTE | 2018-07-15 20:04 | NUR ---
ASSESSMENT AND MEDICATIONS DUE. ASSESSMENT DONE. ACTIVE BT X4. DRESSING CHANGED. ALEX DRAIN EMPTIED, SEROUS FLUID. MEDICATIONS GIVEN (SEE MAR). DENIES PAIN AND NAUSEA. CALL LIGHT WITHIN REACH. NO FURTHER REQUESTS AT THIS TIME.
--- NOTE | 2018-07-15 21:36 | NUR ---
ROUNDED CHARGE. PATIENT IS RESTING IN BED WITH EYES CLOSED, RR 18. CALL LIGHT IN REACH.
--- NOTE | 2018-07-15 23:59 | NUR ---
ROUNDED ON pt. RESTING WITH EYES CLOSED, RESPIRATIONS REGULAR RATE = 12. CALL LIGHT WITHIN REACH.
--- NOTE | 2018-07-16 02:00 | NUR ---
MEDICATION DUE AND GIVEN (SEE MAR). ASSESSMENT DONE. pt AMBULATED TO TOILET AND BACK TO BED. NO REQUESTS AT THIS TIME. CALL LIGHT WITHIN REACH.
--- NOTE | 2018-07-16 04:35 | NUR ---
ROUNDED ON pt. RESTING WITH EYES CLOSED, RESPIRATIONS REGULAR, RATE = 14. CALL LIGHT WITHIN REACH.
--- NOTE | 2018-07-16 05:04 | NUR ---
pt RESTED MOST OF SHIFT. DENIED PAIN AND NAUSEA. SBA. IVF INFUSING. TOLERATING FULL LIQUID DIET. ABD DRESSING CHANGED PER ORDERS. ALEX DRAINING SEROUS FLUID. USES CALL LIGHT APPROPRIATELY.
--- NOTE | 2018-07-16 07:10 | NUR ---
REPORT RECEIVED FROM APRIL ROSAS. PT AWAKE AND RESTING IN BED. PT DENIES PAIN AND NAUSEA. ORANGE JUICE PROVIDED PER PT REQUEST. NO ADDITONAL REQUESTS OR COMPLAINTS. CALL LIGHT WITHIN REACH. BED RAILS UP.
--- NOTE | 2018-07-16 08:41 | NUR ---
MORNING ASSESSMENT DUE. THIS RN TO BEDSIDE. PT UP AND FINISHED WITH FULL LIQUID BREAKFAST. PT REPORTS NO NAUSEA AND DENIES PAIN. PT STATES SHE WOULD LIKE TO TRY "REGULAR FOOD" LATER THIS MORNING. DRESSING REMOVED. WOUNDS ASSESSED, EDGES APROXIMATED ON MIDLINE INCISION. OSTEMY SHOWS GRANULATION TISSUE. ALEX DRAIN INTACT. NEW DRESSINGS PLACED PER MD ORDER. PT DENIES PAIN EVEN WITH DRESSING CHANGE. ASSESSMENT DONE. PT REPORTS "A LITTLE PUFFYNESS" IN HER HANDS. NO NOTABLE SWELLING SEEN. MEDICATION GIVEN. PT UP TO RESTROOM. URINATES BUT NO BM AT THIS TIME. PT REPORTS SMALL BM EARLIER THIS AM. PT UP TO WALK IN HALLS. NO ADDITIONAL REQUESTS OR COMPLAINTS. CALL LIGHT WITHIN REACH.
--- NOTE | 2018-07-16 09:16 | NUR ---
PATIENT UP AMBULATING IN HALLWAY. PATIENT NOW BACK TO BED RESTING. FRESH WATER GIVEN. CALL LIGHT IN REACH. NO FURTHER NEEDS AT THIS TIME.
--- NOTE | 2018-07-16 10:26 | NUR ---
THIS RN TO ROOM TO CHECK ON PT. PT REPORTS A MIGRAIN "STARTING." SEE MAR FOR MEDICATION GIVEN. ROOM DARKENED. SHADES DRAW. BED RAILS UP. CALL LIGHT WITHIN REACH.
--- NOTE | 2018-07-16 11:57 | NUR ---
NOON ASSESSMENT DUE. THIS RN TO BEDSIDE. PT REPORTS HER MIGRAINE "IS GONE." LIGHT ON, PT FINISHING LUNCH. PT ABLE TO TOELRATE CHICKEN NOODLE SOUP, A SOFT ROLE, AND YOGURT FOR LUNCH. PT DENIES PAIN AND NAUSEA AT THIS TIME. ASSESMENT DONE. DRESSING C/D/I. ALEX DRAIN WAS REMOVED BY DURING ROUNDS. NO DRAIAGE NOTED FROM ALEX SITE. PT PLANNING TO GET UP FOR ANOTHER WALK WITH . NO ADDITONAL REQUESTS OR COMPLAINTS AT THIS TIME.
--- NOTE | 2018-07-16 13:42 | NUR ---
PATIENT IN BED RESTING WITH EYES CLOSED. IN ROOM. CALL LIGHT IN REACH. NO FURTHER NEEDS AT THIS TIME.
--- NOTE | 2018-07-16 14:23 | NUR ---
THIS RN TO ROOM TO CHECK ON PT. PT RESTING IN BED. PT DENIES PAIN AND NAUSEA. MEDICATION GIVEN. PT REPORTS GETTING UP FOR "A LIQUID BOWEL MOVEMENT." PT STATES SHE HAS NO REQUESTS OR COMPLAINTS. PT ENCORUAGED TO ORDER DINNER, SOFT FOOD CHOICES ENCORUAGED. BED RAILS UP. CALL LIGHT WITHIN REACH.
--- NOTE | 2018-07-16 15:37 | NUR ---
THIS RN TO ROOM. PT WATCHING TV WITH . PT DENIES PAIN AND NASUEA. PT STATES SHE HAS NO REQUESTS OR COMPLAINTS AT THIS TIME.
--- NOTE | 2018-07-16 16:22 | NUR ---
AFTERNOON ASSESSMENT DUE. THIS RN TO BEDSIDE. PT VISITING WITH FAMILY. PT DENIES PAIN AND NAUSEA. ASSESSMENT DONE. DRESSING C/D/I, NO SHADOWING NOTED. PT REACHES 1750 ON INCENTIVE SPIROMETER. PT UP TO AMBULATE X3 LAPS IN STRINGER. PT BACK TO BED. STATES SHE HAS ORDERED [employer] FOR DINNER. PT UP TO VOID WITHOUT ISSUE. NO ADDITIONAL REQUESTS OR COMPLAINTS. PT CONTINUES VISITING WITH FAMILY. CALL LIGHT WITHIN REACH.
--- NOTE | 2018-07-16 17:29 | NUR ---
PT POST OP FROM OSTOMY REMOVAL. BID DRESSING CHANGES, CHANGED THIS SHIFT. DRESSING CDI SINCE CHANGE. ALEX DRAIN REMOVED THIS SHIFT, NO ADDITONAL DRAINAGE NOTED. PT HAS DENIES PAIN AND NAUSEA THIS SHIFT WITH THE EXCEPTION OF A MIGRAINE, PRN MEDICATION GIVEN. IV SALINE LOCKED TODAY. PT TOLERATING REGULAR DIET. PT ANTICIPATING DISCHARGE TOMORROW. PT USES CALL LIGHT APPROPRIATLY.
--- NOTE | 2018-07-16 18:09 | NUR ---
PATIENT IN BED, FAMILY IN ROOM. FRESH WATER GIVEN. CALL LIGHT IN REACH. NO FURTHER NEEDS AT THIS TIME.
--- NOTE | 2018-07-16 18:25 | NUR ---
THIS RN TO ROOM TO CHECK ON PT. PT DENIES PAIN AND NAUSEA AND STATES "DINNER WENT REALLY WELL. i WANTED TO INHALE IT BUT I WENT SLOWLY BECAUSE OF YOUR ADVISE." PT DENIES REQUESTS OR COMPLAINTS. PT WATCHING TV. CALL LIGHT WITHIN REACH.
--- NOTE | 2018-07-16 19:03 | NUR ---
RECIEVED CHANGE OF SHIFT REPORT FROM MARANDA CHEN. PATIENT RESTING AWAKE IN BED. CALL LIGHT WITHIN REACH. POSSESSIONS AT BEDSIDE. NO MORE NEEDS AT THIS TIME.
--- NOTE | 2018-07-16 19:15 | NUR ---
RECEIVED CHARGE NURSE REPORT FROM DAKSHA POLK RN. PT PRIMARY NURSE IN ROOM, WITH DAY NURSE RECEIVING REPORT WELL.
--- NOTE | 2018-07-16 20:31 | NUR ---
ASSESSMENT COMPLETE. PATIENT DENIES SOB, DIFFICULY BREATHING, OR CHEST PAIN. PATIENT REPORTS DISCOMFORT IN ABDOMEN, BUT NO PAIN, PATIENT STATES "ITS JUST THERE". DRESSING ON ABDOMEN CHANGED, PATIENT TOLERATED WELL, PLAIN STERILE GUAZE USED FOR PACKING PER ORDER. GUAZE REMOVED FROM ABDOMEN DURING PACKING SHOWED SEROUS COLORED DRAINAGE. PATIENT REPORTS FLATUS AND DENIES NAUSEA. INCENTIVE SPRIOMETER AT BEDSIDE, PATIENT EXPRESSES UNDERSTANDING OF ITS USE. IV ASSESSED, PATENT, WNL. BANDAID AND STERI STRIPS ON ABDOMEN SHOW NO SIGN OF NEW DRAINAGE. CALL LIGHT WITHIN REACH. NO MORE NEEDS AT THIS TIME.
--- NOTE | 2018-07-16 22:12 | NUR ---
V/S AND I&O DONE AND CHARTED. ICE WATER REFILLED.
--- NOTE | 2018-07-16 22:53 | NUR ---
ROUNDED ON PATIENT RESTING IN BED WITH EYES CLOSED, RESPIRATORY RATE IS EVEN AND UNLABORED. NO SIGN OF TENSING OR GRIMACING. CALL LIGHT WITHIN REACH.
--- NOTE | 2018-07-17 00:40 | NUR ---
ROUNDED ON PATIENT RESTING IN BED WITH EYES CLOSED, RESPIRATORY RATE IS EVEN AND UNLABORED. CALL LIGHT WITHIN REACH.
--- NOTE | 2018-07-17 02:09 | NUR ---
ASSESSMENT COMPLETE. PATIENT DENIES PAIN. IV ASSESSED TO BE PATENT, WNL. DRESSING ON ABDOMEN IS CDI, NO NEW DRAINAGE NOTED. PATIENT DENIES CHEST PAIN, SOB, OR DIFFICULTY BREATHING. PATIENT DENIES NAUSEA. HAT IN BATHROOM EMPTIED. CALL LIGHT WITHIN REACH. POSSESSIONS AT BEDSIDE. NO MORE NEEDS AT THIS TIME.
--- NOTE | 2018-07-17 05:21 | NUR ---
ROUNDED ON PATIENT. RESTING IN BED WITH EYES CLOSED. PATIENT AWOKE TO SOUND. PATIENT DENIES ANY NEEDS AT THIS TIME. CALL LIGHT WITHIN REACH.
--- NOTE | 2018-07-17 05:43 | NUR ---
REGULAR DIET. NO COMPLAINTS OF NAUSEA. ROOM AIR. INDEPENDENT IN ROOM. DRESSING CHANGE PERFORMED PER ORDER, EDUCATION PROVIDED TO PATIENT THROUGHOUT DRESSING CHANGE. NO COMPLAINTS OF PAIN DURING SHIFT. SALINE LOCKED. DRESSINGS ON ABDOMEN CDI, NO NEW DRAINAGE NOTED. PATIENT SLEPT THROUGHOUT NIGHT.
--- NOTE | 2018-07-17 06:25 | NUR ---
ROUNDED ON PATIENT TO UPDATE BOARDS IN ROOM AND EMPTY PATIENT GARBAGE CANS. FRESH WATER BROUGHT TO PATIENT. CALL LIGHT WITHIN REACH. NO MORE NEEDS AT THIS TIME.
--- NOTE | 2018-07-17 07:20 | NUR ---
PATIENT REPORT RECEIVED FROM RN'S BENNIE IN THE ROOM. PATIENT IS AWAKE, ALERT AND ORIENTED. PATIENT HAS NO QUESTIONS OR CONCERNS AT THIS TIME.
--- NOTE | 2018-07-17 08:00 | NUR ---
PATIENT UP TO THE SHOWER WITH ASSISTANCE FROM WEED CUTTER AND STUDENT NURSE. PATIENT IS STEADY ON HER FEET AND DENIES ANY PAIN AT THIS TIME.
--- NOTE | 2018-07-17 08:30 | NUR ---
PATIENT ABDOMINAL DRESSING CHANGE DONE AND TEACHING WITH STUDENT NURSE AND PATIENT DONE. 1 4X4 PIECE OF GAUZE OPENED UP AND PLACED INTO THE WOUND WITH ABD PAD OVER THE TOP. PATIENT TOLERATED DRESSING CHANGE WELL AND STILL DENIES ANY PAIN CURRENTLY. ABDOMEN IS VERY BRUISED FROM HEPRIN. MIDLINE ABDOMINAL INCISION WELL APPROXIMATED AND INTACT WITH STERI STRIPS. BANDAID ALSO PLACED ON THE LEFT LOWER QUADRANT FROM ALEX SITE. NO DRAINAGE NOTED.
[2018-07-17] MEDS ORDERED: IBUPROFEN600 MG PO (10:55)
[2018-07-17] MEDS ORDERED: MAPAP325 MG PO (10:56)
--- NOTE | 2018-07-17 11:21 | NUR ---
PT IS SITTING UP IN BED, NG TUBE FREE, AND FEELING MUCH BETTER. SHE IS HOPING TO BE DC'D TODAY, DR CANTU HAS BEEN IN, APRIL ALBARRAN WAITING FOR ORDERS. JOHN CAME IN, GOOD VISIT. STUDENT IN TO CARE FOR PT, GAVE BLESSING, WILL FOLLOW NEEDED
--- NOTE | 2018-07-17 11:53 | NUR ---
PATIENT AND HER GIVEN D/C INSTRUCTIONS AT THIS TIME AND SHOWEN HOW TO DO THE DRESSING CHANGE TO PATIENT'S ABDOMEN. PATIENT AND HUSBANDS QUESTIONS ANSWERED AND PHARMACY IN TO TALK TO THE PATIENT REGARDING D/C MEDICATION.
--- NOTE | 2018-07-19 12:01 | DS ---
[facility] [address] [place] [address], [place] [address] Signed ADMISSION DATE: 07/05/2018 DISCHARGE DATE: 07/17/2018 REASON FOR ADMISSION: This is a morbidly obese 62-year-old white woman who has been treated for recurrent perforated diverticulitis by Dr. Cotto with laparoscopic sigmoidectomy and end colostomy and Nita pouch in March of 2018. She is here for takedown of the colostomy and partial colectomy as appropriate. PERTINENT PHYSICAL EXAMINATION: GENERAL: Morbidly obese white woman without sign of distress. ABDOMEN: Left upper and mid abdominal colostomy site is functioning well. CHEST: Clear. HEART: Regular without murmur. Other details can be found in admission history and physical. HOSPITAL COURSE: She was admitted, underwent an open takedown of the colostomy including partial colectomy with side-to-end coloproctostomy. A drain was placed as well. Postoperatively, she was maintained with nonopioid pain medication as much as possible with a Dilaudid backup DIGITAL MEDIA STRATEGIST as needed. A single shot spinal Duramorph had been given preoperatively. She had progressive improvement and suddenly had nausea and vomiting and abdominal x-ray showed findings suggestive of ileus. On that basis, a nasogastric tube was placed. Electrolytes were monitored and replete as necessary. In time, the ileus appeared to resolve. The tube was removed and she was begun on liquids. She did have some episodes of nausea and vomiting which were short lived. In time, her bowel returned to high function. She was advanced in her diet from clear liquids to full and ultimately to solid regular food which she tolerated well. By day of discharge, she is ambulating well, tolerating a regular diet, has no abdominal distention and bowel movements. The ostomy site was managed by plain gauze packing. The midline incision is healing well. DISCHARGE PLAN: She will repack the ostomy site which is now granulating well on a daily basis, 1-2 times with plain gauze. She is to shower on a daily basis and allow water to hit the incision including the ostomy site. She will walk on a daily basis. She should lift no Electronically Signed By: PRAVEENA CANTU MD 07/19/18 1201 PATIENT NAME: EMILY DAVIS DISCHARGE SUMMARY DATE OF : 51 REPORT #: [id number] PHYSICIAN: PRAVEENA CANTU MD PCP: MAINE BELLAMY PAC REPORT IS CONFIDENTIAL AND NOT TO BE RELEASED WITHOUT AUTHORIZATION [address] [address] Signed more than 20 pounds for the next 4 weeks. FOLLOWUP PLAN: She will return to see me in approximately four weeks. DISCHARGE MEDICATIONS: Will be: 1. Motrin 600 mg p.o. q.4 hours as needed for pain #30, no refill. 2. Tylenol 325 two tabs p.o. q.6 hours as needed for pain #30, no refill. 3. She will continue usual aspirin 81 mg daily. 4. Atorvastatin 10 mg daily. 5. Metoprolol 50 mg ER daily. 6. Rizatriptan 10 mg tablet as needed for migraine headache. 7. Albuterol and Ventolin inhaler as needed. 8. Albuterol inhaler two puffs q.4 hours as needed. 9. Nasonex 2 sprays as needed for allergy symptoms. 10. Vitamin D 1000 units daily. 11. Multivitamin one tablet p.o. daily. DISCHARGE DIAGNOSES: 1. History of perforated diverticulitis, status post laparoscopic sigmoid colectomy with end colostomy and Nita's pouch. 2. Takedown of colostomy with partial colectomy inside and coloproctostomy on July 05, 2018. 3. Postoperative ileus day #4 with resolution. 4. Morbid obesity. 5. Hypertension. 6. Dyslipidemia. 7. Seasonal allergies. MD VIDA Vazquez/MODL /[id number] cc: Maine Bellamy PA-C Electronically Signed By: PRAVEENA CANTU MD 07/19/18 1201 PATIENT NAME: EMILY DAVIS DISCHARGE SUMMARY DATE OF : 51 REPORT #: [id number] PHYSICIAN: PRAVEENA CANTU MD PCP: MAINE BELLAMY REPORT IS CONFIDENTIAL AND NOT TO BE RELEASED WITHOUT AUTHORIZATION [address] [place], [place] [address] Signed Copies: MAINE BELLAMY ~ Electronically Signed By: PRAVEENA CANTU MD 07/19/18 1201 PATIENT NAME: EMILY DAVIS DISCHARGE SUMMARY DATE OF : 51 REPORT #: [id number] PHYSICIAN: PRAVEENA CANTU MD PCP: MAINE BELLAMY REPORT IS CONFIDENTIAL AND NOT TO BE RELEASED WITHOUT AUTHORIZATION
== END 2018-07-17 11:55 | disposition home or self-care (01) | DRG 330 ==
LOC: MS 07-05 06:45 → DSVR 07-05 06:50 → MS 07-05 08:30
PROVIDERS: ADMIT Surgery
PROC: 0DBN0ZZ Excision of Sigmoid Colon, Open Approach (ICD-10-PCS; 2018-07-05)
PROC: 0DBP0ZZ Excision of Rectum, Open Approach (ICD-10-PCS; principal; 2018-07-05 08:30)
PROC: 0DBE0ZZ Excision of Large Intestine, Open Approach (ICD-10-PCS; 2018-07-05 08:30)
DX: Z43.3 Encounter for attention to colostomy (principal); K56.7 Ileus, unspecified; E66.9 Obesity, unspecified; I10 Essential (primary) hypertension; E78.5 Hyperlipidemia, unspecified; J30.2 Other seasonal allergic rhinitis; Z79.82 Long term (current) use of aspirin; Z79.51 Long term (current) use of inhaled steroids; Z79.899 Other long term (current) drug therapy; Z68.33 Body mass index [BMI] 33.0-33.9, adult
CPT/HCPCS: 00790; 36415; 71045; 74018; 74250; 80053; 82247; 82465; 83615; 83735; 84100; 84478; 84550; 85025; 94762; J0131; J0330; J0694; J1100; J1170; J1644; J1885; J2250; J2274; J2405; J2550; J2704; J2765; J3475; J7120

== ENCOUNTER 2018-07-23 20:28 | Emergency (ER) | payer BC ==
[~2018-07-23] VITALS: Ht 167.6 cm; Wt 93.4 kg
[~2018-07-23 20:28] MED LIST changes: +MULTIVITAMINS1 EAC7 PO; +VITAMIN D1000 UNIT PO
== END 2018-07-23 22:02 | disposition home or self-care (01) ==
LOC: ED 20:28
DX: R10.32 Left lower quadrant pain (principal); E78.00 Pure hypercholesterolemia, unspecified; Z90.49 Acquired absence of other specified parts of digestive tract; Z79.899 Other long term (current) drug therapy; Z79.82 Long term (current) use of aspirin
CPT/HCPCS: 74177; 80053; 81001; 83690; 85025; 99284-25; J7030; Q9967

== ENCOUNTER 2021-04-01 07:07 | Emergency (ER) | payer BC ==
[~2021-04-01] VITALS: Ht 167.6 cm; Wt 92.2 kg
--- OUTSIDE RECORDS SUMMARY | 2021-04-01 07:10 | XMS ---
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 Bethany has no Care Guidelines for this patient. Saulo VISIT COUNT (12 MO.) 1 MAKAYLA Kyle TOTAL 1 NOTE: Visits indicate total known visits. ED/UCC VISIT TRACKING (12 MO.) 04/01/2021 07:07 MAKAYLA Ordonez OR TYPE: Emergency COMPLAINT: - LOW O2 SATS INPATIENT VISIT TRACKING (12 MO.) No inpatient visits to display in this time frame [email or web address]
== END 2021-04-01 08:38 | disposition home or self-care (01) ==
LOC: ED 07:07
DX: U07.1 COVID-19 (principal); E78.00 Pure hypercholesterolemia, unspecified; Z79.899 Other long term (current) drug therapy
CPT/HCPCS: 71045; 99284-25

== ENCOUNTER 2023-12-04 06:29 | Day surgery (SDC) | payer MEDICARE, OTHER ==
[~2023-12-04] VITALS: Ht 167.6 cm; Wt 104.1 kg
[~2023-12-04 06:29] MED LIST changes: +MIDAZOLAM HCL 5 MG/5 ML VIAL IV PRN; +fentaNYL citrate 100 MCG/2 ML VIAL IV PRN
[2023-12-04 06:43] VITALS: BP 125/78
[2023-12-04] MEDS ORDERED: MIDAZOLAM HCL 5 MG/5 ML VIAL ONE (06:43)
[2023-12-04] MEDS ORDERED: fentaNYL citrate 100 MCG/2 ML VIAL ONE (06:43)
[2023-12-04] MEDS ORDERED: MELOXICAM15 MG PO (06:47)
[2023-12-04] MEDS ORDERED: CALCIUM500 M1 PO (06:47)
[2023-12-04] MEDS ORDERED: K2-D3 5000 901 EACH PO (06:48)
[2023-12-04] MEDS ORDERED: IBLOOD GLUCOSE TEST STRIP 1 EA TEST VI PRN (07:00)
[2023-12-04] MEDS ORDERED: LIDOCAINE HCL 1% 5 ML SDV INJ ONE (07:00)
[2023-12-04] MEDS ORDERED: LACTATED RINGER'S 1,000 ML IV SCH (07:00)
[2023-12-04 08:47] VITALS: BP 122/69
--- NOTE | 2023-12-04 08:54 | NUR ---
12/04/23 0854 Cammie Toney 0821 PT ARRIVED IN PACU SLEEPY. ABD SOFT. 0835 DR AT BEDSIDE. ALL QUESTIONS ANSWERED. 0845 SITTING UP IN BED SIPPING ON WATER. DC INSTRUCTIONS GIVEN. 0850 GETTING DRESSED WITH STAND BY ASSIST.
--- NOTE | 2023-12-08 15:25 | PATH ---
[facility] [address] [facility] [place], [place] [address] Signed SPECIMEN(S): A SIGMOID POLYP SPECIMEN SOURCE: A. SIGMOID POLYP CLINICAL HISTORY: Colonoscopy FINAL PATHOLOGIC DIAGNOSIS: Sigmoid colon polyp: - Polypoid fragment of benign colonic mucosa. - No colitis or neoplasm identified. [facility] MICROSCOPIC EXAMINATION: Histologic sections of all submitted blocks are examined by light microscopy. These findings, together with the gross examination, support the pathologic diagnosis. GROSS DESCRIPTION: The specimen, labeled and designated "Sona, sigmoid colon," is received in formalin and consists of one fragment of soft herrera tissue that is up to 0.4 cm in greatest dimension. Entirely submitted in (A1). TW (under the direct supervision of a pathologist) The Gross Description was prepared using a voice recognition system. The report was reviewed for accuracy; however, sound-alike word errors, addition and/or deletions may occur. If there is any question about this report, please contact Client Services. ADDITIONAL NOTES: Immunohistochemical and/or in situ hybridization studies if performed in this case included appropriate positive controls that reacted as expected. This test was developed and its performance characteristics determined by [employer] It has not been cleared or approved by the U.S. Food and Drug Administration. The FDA has determined that such clearance or approval is not necessary. This test is used for clinical purposes. It should not be regarded as investigational or for research. [employer] [facility] [employer] [facility] is certified under the Clinical Laboratory Improvement Amendments of 1988 (CLIA) as qualified to perform high complexity clinical PATIENT NAME: EMILY DAVIS PATHOLOGY DATE OF : 51 REPORT #: [id number] PHYSICIAN: MAYA BERKOWITZ PCP: BRAULIO ALVA PAC REPORT IS CONFIDENTIAL AND NOT TO BE RELEASED WITHOUT AUTHORIZATION [address] [address] Signed laboratory testing. PERFORMING LABORATORY: Technical component was performed by [employer] [facility], [address] [place] [address] (CLIA# [id number]). Professional interpretation was performed by [facility], [address] [place] [id number] (CLIA#: [id number]). Diagnostician: Luis Mcgrath MD Pathologist Electronically Signed 12/08/2023 Copies: ~ PATIENT NAME: EMILY DAVIS PATHOLOGY DATE OF : 51 REPORT #: [id number] PHYSICIAN: MAYA BERKOWITZ PCP: BRAULIO ALVA PAC REPORT IS CONFIDENTIAL AND NOT TO BE RELEASED WITHOUT AUTHORIZATION
--- NOTE | 2023-12-08 15:28 | OR ---
[facility] [address] [place], [place] [address] Signed DATE OF OPERATION: 12/04/2023 SURGEON: Praveena Cantu MD PREOPERATIVE DIAGNOSES: 1. 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 2. Family history of polyps (father). POSTOPERATIVE DIAGNOSIS: Small polyp of phoebe-sigmoid and minimal residual diverticulosis. PROCEDURE: Total colonoscopy to cecum with cold morcellation polypectomy x1. ANESTHESIA: Intravenous sedation, fentanyl 100 mcg and Versed 9 mg. INDICATIONS: A 67-year-old white woman, patient of HERMELINDA Handy. She has history of sigmoid diverticulitis requiring resection and end-colostomy. 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 She is generally symptom-free, though she does have some incisional hernias, for which repair is anticipated. She is admitted to undergo colonoscopy at this time, understands the risk of bleeding, infection, and perforation. FINDINGS: The prep was adequate. Complete colonoscopy was undertaken of the cecum. She had a few residual diverticula and one apparent small polyp of the phoebe-sigmoid, which was excised, this may represent a hyperplastic polyp, it did not have adenomatous features. DESCRIPTION OF PROCEDURE: The patient was brought to the endoscopy suite and placed in lateral decubitus position given intravenous sedation to the point of slurred speech and nystagmus. Digital rectal examination was normal. An Olympus video colonoscope was passed into the rectum and manipulated throughout the colon. Her prep was adequate, but not perfect and irrigation was required. The scope was ultimately advanced to the cecum. The ileocecal valve and appendiceal orifice were normal. Scope was then withdrawn and with irrigation and so forth, complete inspection undertaken. There were few scattered diverticula of the remaining left and transverse colon and one small apparent polyp that may be Electronically Signed By: PRAVEENA CANTU MD 12/08/23 1528 PATIENT NAME: EMILY DAVIS OPERATIVE REPORT DATE OF : 51 REPORT #: [id number] PHYSICIAN: PRAVEENA CANTU MD PCP: MAINE BELLAMY PAC REPORT IS CONFIDENTIAL AND NOT TO BE RELEASED WITHOUT AUTHORIZATION [facility] [address] [place] [id number] Signed hyperplastic in the phoebe-sigmoid, this was excised with cold morcellation technique. Further withdrawal showed no other abnormality and certainly was no evidence of proctitis in any way. The scope was removed and the patient taken to the recovery room in good condition. CONCLUDING DIAGNOSES: 1. Diverticulosis, residual and asymptomatic. 2. Small polyp, possibly hyperplastic. PLAN: She will return to the ongoing care of Maine Bellamy. Consideration will be made for incisional hernia repair at her convenience. She will return to the ongoing care of HERMELINDA Gonzales and recommendation for repeat colonoscopy in 5 years is made. MD VIDA Vazquez/GABRIELLE /[id number] cc: Maine Bellamy PA-C Copies: MAINE BELLAMY ~ Electronically Signed By: PRAVEENA CANTU MD 12/08/23 1528 PATIENT NAME: EMILY DAVIS OPERATIVE REPORT DATE OF : 51 REPORT #: [id number] PHYSICIAN: PRAVEENA CANTU MD PCP: MAINE BELLAMY REPORT IS CONFIDENTIAL AND NOT TO BE RELEASED WITHOUT AUTHORIZATION
== END 2023-12-04 08:55 | disposition home or self-care (01) ==
LOC: DS 06:29 → OPS 06:29 → DS 07:30 → OPS 08:55
PROVIDERS: ATTEND Surgery
PROC: 0DBL8ZX Excision of Transverse Colon, Via Natural or Artificial Opening Endoscopic, Diagnostic (ICD-10-PCS; 2023-12-04)
PROC: 0DBN8ZX Excision of Sigmoid Colon, Via Natural or Artificial Opening Endoscopic, Diagnostic (ICD-10-PCS; principal; 2023-12-04 07:30)
DX: K63.5 Polyp of colon (principal); I10 Essential (primary) hypertension; J45.909 Unspecified asthma, uncomplicated; E66.01 Morbid (severe) obesity due to excess calories; Z68.36 Body mass index [BMI] 36.0-36.9, adult; Z83.719 Family history of colon polyps, unspecified
CPT/HCPCS: 88305; 99153; G0500; J2250; J3010; J7121

== ENCOUNTER 2024-09-26 06:00 | Day surgery (SDC) | payer MEDICARE, OTHER ==
[~2024-09-26] VITALS: Ht 167.6 cm; Wt 99.5 kg
[~2024-09-26 06:00] MED LIST changes: +CALCIUM 600 MG1 EA10 PO; +CALCIUM500 M1 PO; +DICLOFENAC POTA50 MG PO; +FENOFIBRATE134 MG PO; +FLUOCINONIDE-E15 GM TOP; +K2-D3 5000 901 EACH PO; +LACTATED RINGER'S 1,000 ML IV SCH; +MELOXICAM15 MG PO; -MIDAZOLAM HCL 5 MG/5 ML VIAL IV PRN; +TRAMADOL HCL50 MG PO; +TRIAMTERENE-HC1 EAC1 PO; +TURMERIC CURCU500 MG PO; -fentaNYL citrate 100 MCG/2 ML VIAL IV PRN
[2024-09-26 06:14] VITALS: BP 126/68
[2024-09-26] MEDS ORDERED: AFRIN15 M1 NAS (06:47)
[2024-09-26] MEDS ORDERED: CEFAZOLIN SODIUM 2 GM/20 ML SYR IV SCH (07:00)
[2024-09-26] MEDS ORDERED: IBLOOD GLUCOSE TEST STRIP 1 EA TEST VI PRN ×2 (07:00→08:30)
[2024-09-26] MEDS ORDERED: LIDOCAINE HCL 1% 5 ML SDV INJ ONE (07:00)
[2024-09-26] MEDS ORDERED: ondansetron HCL 4 MG/2 ML VIAL ONE (07:12)
[2024-09-26] MEDS ORDERED: fentaNYL citrate 100 MCG/2 ML VIAL ONE (07:12)
[2024-09-26] MEDS ORDERED: propofoL 200 MG/20 ML VIAL ONE (07:12)
[2024-09-26] MEDS ORDERED: DEXAMETHASONE SOD PHOS 4 MG/ML VIAL ONE (07:12)
[2024-09-26] MEDS ORDERED: dexmedeTOMIDine HCl 200 MCG/2 ML VIAL ONE (07:12)
[2024-09-26] MEDS ORDERED: ACETAMINOPHEN 1,000 MG/100 ML VIAL ONE (07:13)
[2024-09-26] MEDS ORDERED: LIDOCAINE HCL 2% 5 ML SDV ONE (07:13)
[2024-09-26] MEDS ORDERED: KETAMINE in NS 50 MG/5 ML SYR ONE (07:20)
[2024-09-26] MEDS ORDERED: ROCURONIUM BROMIDE 50 MG/5 ML SYR ONE (07:20)
--- NOTE | 2024-09-26 08:00 | NUR ---
PT NOT AVAILABLE FOR VISIT. PROVIDED PRAYER.
[2024-09-26] MEDS ORDERED: fentaNYL citrate 50 MCG/ML SDV IV PRN (08:30)
[2024-09-26] MEDS ORDERED: NALOXONE HCL 0.4 MG SYR IV PRN ×2 (08:30→08:45)
[2024-09-26] MEDS ORDERED: ondansetron HCL 4 MG/2 ML VIAL IV PRN (08:30)
[2024-09-26] MEDS ORDERED: MOTRIN IB200 MG PO (08:40)
[2024-09-26] MEDS ORDERED: PERCOCET 7.5-31 EACH PO (08:41)
--- NOTE | 2024-09-26 08:44 | NUR ---
09/26/24 0844 Rosangela Funez 0845-PT BROUGHT TO PACU VIA STRETCHER, RESTING SEMI FOWLERS, PT AWAKENS TO VOICE BUT FALL BACK TO SLEEP EASILY, VSS ON 6L VIA MASK, RR EVEN AND UNLABORED. 0836-PT ROLLED ONTO RT SIDE TO ASSESS INCISIONS ON LT LOWER BACK, INSICION ABOVE POSTERIOR LT HIP W/ SCANT RED DRAINAGE, REINFORCED W/ GAUZE AND TAPE. PT TITRATED TO RA, VS REMAIN STABLE. PT RESTING BACK ON BACK, SEMI FOWLERS, PT DENIES PAIN OR NAUSEA.
[2024-09-26] MEDS ORDERED: OXYCODONE/APAP 7.5/325 TAB PO PRN (08:45)
[2024-09-26] MEDS ORDERED: LACTATED RINGER'S 1,000 ML IV SCH (08:45)
[2024-09-26] MEDS ORDERED: IBUPROFEN 600 MG TAB PO PRN (08:45)
[2024-09-26] MEDS ORDERED: ACETAMINOPHEN 500 MG TAB PO PRN (08:45)
[2024-09-26 08:55] VITALS: BP 120/59
--- NOTE | 2024-09-26 08:55 | NUR ---
PT ARRIVED BACK TO ON RA, AAOX3, ANSWERING QUESTIONS APPROPRIATELY, AND ABLE TO MAKE HER NEEDS KNOWN. REPORT RECEIVED FROM CAFETERIA OPERATOR. SURGICAL SITES VISUALIZED WITH CAFETERIA OPERATOR. PT WITH 5 INCISION SITES. 2 SITES NEAR SPINE IN LUMBAR AREA, 1 SITE NEAR THE L SCAPULA AREA, AND 2 SITES ON LAT ASPECT OF MID BACK (PTS SIDE). PER CAFETERIA OPERATOR, THE INFERIOR SIDE INCISION REQUIRED REINFORCEMENT WITH GAUZE AND TAPE D/T SOME SANGUINEOUS DRAINAGE. NOTED GAUZE IS CDI. REST OF SITES WITH SMALL AMT OF VISIBLE SANGUINEOUS DRAINAGE PRESENT. PT DENIES NAUSEA AND REPORTS PAIN 4/10 IN INCISION SITES. VS TAKEN. IV SITE ASSESSED. BED IN LOW POSITION, WHEELS LOCKED, CALL LIGHT WITHIN PT REACH. BILAT RAILS IN PLACE FOR SAFETY. ALL QUESTIONS ANSWERED.
--- NOTE | 2024-09-26 09:00 | NUR ---
PT PROVIDED WITH APPLESAUCE, ICE WATER, AND ROXANNE CRACKERS. SPOUSE BROUGHT FROM WAITING AREA TO PTS ROOM WITH HER PERMISSION. HOB ELEVATED TO APPROX 45 DEGREES TO FACILITATE PT IN EATING AND DRINKING. FALL PREVENTIONS IN PLACE. CALL LIGHT WITHIN PT REACH.
--- NOTE | 2024-09-26 09:06 | NUR ---
PT TOLERATING PO FOOD AND FLUIDS WELL. DENIES ANY NAUSEA WHEN ASKED. PT FINISHED APPLESAUCE AND ATE 1 PACKAGE OF ROXANNE CRACKERS. PT TAKING PO FLUIDS WELL ALSO. PT GIVEN PO PAIN MEDS PER EMAR FOR REPORTS OF PAIN 4/10 IN SURGICAL SITES. FALL PREVENTIONS REMAIN IN PLACE, CALL LIGHT WITHIN PT REACH, AND PTS AT BEDSIDE.
--- NOTE | 2024-09-26 09:17 | NUR ---
PT REPORTS URGE TO VOID. IV SL'D. PT ASSISTED TO SITTING UP ON EOB AND THEN DIRECTED TO STAND SLOWLY. PT DENIES DIZZINESS. PT AMBULATED ACROSS STRINGER TO RESTROOM WITH RN SBA FOR SAFETY. PT ABLE TO VOID APPROX 125ML OF DILUTE URINE. PT ASSISTED BACK TO ROOM WITH RN SBA. CALL LIGHT WITHIN PT REACH. FALL PREVENTIONS IN PLACE PER INITIAL NOTES. PTS REMAINS AT BEDSIDE. LIGHTS DIMMED.
--- NOTE | 2024-09-26 09:35 | OR ---
[facility] [address] [place], [place] [address] Signed DATE OF OPERATION: 09/26/2024 SURGEON: Praveean Cantu MD PREOPERATIVE DIAGNOSIS: Symptomatic lipomas left lateral abdomen, left flank and left lateral chest wall. POSTOPERATIVE DIAGNOSIS: Symptomatic lipomas left lateral abdomen, left flank and left lateral chest wall. PROCEDURE: Excision of soft tissue subcutaneous mass (lipoma) x5. ANESTHESIA: General LMA, Tima Peryr, BASEBALL GLOVE SHAPER and local 5 mL of 0.25% Marcaine with epinephrine. INDICATION: This 68-year-old white woman is a patient of Braulio Bellamy. She is noted to have multiple lipomas of the abdomen, back, and elsewhere. 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 None of the lesions are suggestive of epidermal inclusion cyst. All are consistent with lipomas. She is admitted to undergo excision of the symptomatic lipomas. She understands the risk of bleeding, infection, recurrence and so on. FINDINGS: Five lipomas were excised, two in the left lateral flank, one in the left lateral chest wall and two in the left anterior abdominal area. All were consistent with benign lipomas, all were subcutaneous in position. DESCRIPTION OF PROCEDURE: The patient was brought to the operating room, given general LMA type anesthetic and placed in the lateral decubitus position with left side up. Careful padding and stabilization of the torso and extremities was maintained. The area was prepared with a chlorhexidine solution and draped sterilely. The previously marked areas of symptomatic soft tissue masses were identified. A transverse incision was made of the left posterolateral flank area. Dissection was carried through the dermis, promptly noted was lipomatous mass, this was shelled out with a hemostat. Electrocautery was used for hemostasis. Four additional lesions of a similar type were excised, one not far from the left posterior flank area, another the left lateral chest wall and two in the left Electronically Signed By: PRAVEENA CANTU MD 09/26/24 0935 PATIENT NAME: EMILY DAVIS OPERATIVE REPORT DATE OF : 51 REPORT #: [id number] PHYSICIAN: PRAVEENA CANTU MD PCP: BRAULIO BELLAMY REPORT IS CONFIDENTIAL AND NOT TO BE RELEASED WITHOUT AUTHORIZATION [facility] [address] [place] [address] Signed anterior abdominal wall area. The lesions measured approximately 2 cm in maximum length. All were closed with interrupted 3-0 Vicryl and Steri-Strips were applied. She was returned to the supine position, extubated, and taken to recovery room in good condition. CONCLUDING DIAGNOSIS: Lipoma x5 subcutaneous 2 cm or less. MD VIDA Vazquez/GABRIELLE /[id number] cc: Braulio Bellamy PA-C Copies: BRAULIO BELLAMY PAC ~ Electronically Signed By: PRAVEENA CANTU MD 09/26/24 0935 PATIENT NAME: EMILY DAVIS OPERATIVE REPORT DATE OF : 51 REPORT #: [id number] PHYSICIAN: PRAVEENA CANTU MD PCP: BRAULIO BELLAMY PAC REPORT IS CONFIDENTIAL AND NOT TO BE RELEASED WITHOUT AUTHORIZATION
[2024-09-26] MEDS ORDERED: SEVOFLURANE 250 ML BTL INH ONE (09:39)
[2024-09-26 09:55] VITALS: BP 117/59
--- NOTE | 2024-09-26 09:55 | NUR ---
INTO PTS ROOM FOR ROUTINE REASSESSMENT. VS TAKEN. IV SITE ASSESSED. PT REPORTS IMPROVEMENT IN PAIN AND RATES PAIN AT 2/10 IN SURGICAL SITES. PT DENIES NAUSEA WHEN ASKED. SURGICAL SITES VISUALIZED. SMALL AMT OF SANGUINEOUS DRAINAGE NOTED FROM BOTH INCISIONS BESIDE SPINE. REINFORCED WITH GAUZE AND TAPE. REST OF SURGICAL SITES REMAIN W/O ANY ACUTE CHANGES NOTED. REMAINS IN ROOM WITH PT AT HER BEDSIDE.
--- NOTE | 2024-09-26 10:05 | NUR ---
PT HAS MET CRITERIA FOR DISCHARGE HOME. IV REMOVED FROM R HAND. TIP APPEARS INTACT. PRESSURE DRSG APPLIED W/GAUZE AND COBAN. PT DRESSING FOR DISCHARGE HOME WITH SPOUSES ASSISTANCE. BED IN LOW POSITION, WHEELS LOCKED. PERSONAL BELONINGS AND CALL LIGHT WITHIN PT REACH. PTS AT HER SIDE.
--- NOTE | 2024-09-26 10:10 | NUR ---
DISCHARGE INSTRUCTION REVIEWED WITH PT. PT ALSO PROVIDED WRITTEN INSTRUCTIONS WELL. PT GIVEN F/U APPT DATE OF October AT 4PM. PT AND VERBALIZED UNDERSTANDING. HARDCOPY RX PROVIDED TO PT. ALL QUESTIONS ANSWERED. LEFT TO PULL CAR AROUND TO FRONT.
--- NOTE | 2024-09-26 10:20 | NUR ---
PT DISCHARGED FROM DS VIA WC TO PASSENGER SIDE OF SPOUSE'S VEHICLE. ALL PERSONAL BELONINGS TAKEN WITH PT.
--- NOTE | 2024-09-30 08:49 | PATH ---
[facility] [address] [place], [place] [address] Signed SPECIMEN(S): A LEFT FLANK LIPOMA #1 SPECIMEN(S): B LEFT FLANK LIPOMA #2 SPECIMEN(S): C LEFT LATERAL ABDOMINAL WALL LIPOMA SPECIMEN(S): D LEFT ANTERIOR ABDOMINAL WALL LIPOMA SPECIMEN(S): E LEFT LATERAL CHEST WALL LIPOMA SPECIMEN SOURCE: A. LEFT FLANK LIPOMA #1 B. LEFT FLANK LIPOMA #2 C. LEFT LATERAL ABDOMINAL WALL LIPOMA D. LEFT ANTERIOR ABDOMINAL WALL LIPOMA E. LEFT LATERAL CHEST WALL LIPOMA CLINICAL HISTORY: Lipomas-L posterior thorax and left anterior abdominal wall. FINAL PATHOLOGIC DIAGNOSIS: A. Soft tissue, left flank #1, excision: - Angiolipoma B. Soft tissue, left flank #2, excision: - Mature adipose tissue, clinically lipoma C. Soft tissue, left lateral abdominal wall, excision: - Mature adipose tissue, clinically lipoma D. Soft tissue, left anterior abdominal wall, excision: - Mature adipose tissue, clinically lipoma E. Soft tissue, left lateral chest wall, excision: - Mature adipose tissue, clinically lipoma BRP MICROSCOPIC EXAMINATION: Histologic sections of all submitted blocks are examined by light microscopy. These findings, together with the gross examination, support the pathologic diagnosis. GROSS DESCRIPTION: A. The specimen, labeled and designated "Elizabeth Davis, left flank lipoma #1," is received in formalin and consists of a singular intact white-herrera portion of adipose tissue measuring 1.6 x 1.5 x 0.9 cm (weighing 0.8 g). Specimen appears to be enveloped in a transparent membrane. Specimen is inked blue and sectioned. Sectioning reveals a herrera homogenous pink cut surface. Entirely submitted in PATIENT NAME: EMILY DAVIS PATHOLOGY DATE OF : 51 REPORT #: [id number] PHYSICIAN: MAYA PATHOLOGY PCP: BRAULIO ALVA PAC REPORT IS CONFIDENTIAL AND NOT TO BE RELEASED WITHOUT AUTHORIZATION [facility] [address] [place], [place] [address] Signed cassette (A1). B. The specimen, labeled and designated "Elizabeth Davis, left flank lipoma #2," is received in formalin and consists of a singular intact yellow-herrera portion of adipose tissue measuring 2.3 x 1.7 x 0.9 cm (weighing 2.1 g). Specimen appears to be enveloped in a transparent membrane. Specimen is inked green and sectioned. Sectioning reveals a yellow-herrera homogenous clean-cut surface. Brushing Machine Operator sections are submitted in cassette (B1). C. The specimen, labeled and designated "Elizabeth Davis, left lateral abdominal wall lipoma," is received in formalin and consists of a singular intact yellow-herrera portion of adipose tissue measuring 2.2 x 1.2 x 1.0 cm (weighing 1.3 g). Specimen appears to be partially enveloped in a transparent membrane (membrane measuring 1.4 x 1.2 cm). The specimen is inked black and sectioned. Sectioning reveals a yellow-herrera homogenous clean-cut surface entirely submitted in cassette (C1). D. The specimen, labeled and designated "Elizabeth Davis, left anterior abdominal wall lipoma," is received in formalin and consists of a singular intact yellow-herrera portion of adipose tissue measuring 2.6 x 2.5 x 1.4 cm (weighing 4.0 g). The specimen appears to be enveloped in a transparent membrane. The specimen is inked blue and sectioned. Sectioning reveals yellow-herrera homogenous clean-cut surface. Brushing Machine Operator sections are submitted in cassette (D1). E. The specimen, labeled and designated "Elizabeth Davis, left lateral chest wall lipoma," is received in formalin and consists of a singular intact yellow-herrera portion of adipose tissue measuring 1.6 x 1.4 x 0.7 cm (weighing 0.9 g). Specimen appears to be enveloped in a transparent membrane. The specimen is inked green and sectioned. Sectioning reveals a yellow-herrera homogenous clean-cut surface. Entirely submitted in cassette (E1). AB (under the direct supervision of a pathologist) The Gross Description was prepared using a voice recognition system. The report was reviewed for accuracy; however, sound-alike word errors, addition and/or deletions may occur. If there is any question about this report, please contact Client Services. ADDITIONAL NOTES: Immunohistochemical and/or in situ hybridization studies if performed in this case included appropriate positive controls that reacted as expected. This test was developed and its performance characteristics determined by [facility]. It has not been cleared or PATIENT NAME: EMILY DAVIS PATHOLOGY DATE OF : 51 REPORT #: [id number] PHYSICIAN: MAYA PATHOLOGY PCP: BRAULIO ALVA PAC REPORT IS CONFIDENTIAL AND NOT TO BE RELEASED WITHOUT AUTHORIZATION [address] [address] Signed approved by the U.S. Food and Drug Administration. The FDA has determined that such clearance or approval is not necessary. This test is used for clinical purposes. It should not be regarded as investigational or for research. [facility] is certified under the Clinical Laboratory Improvement Amendments of 1988 (CLIA) as qualified to perform high complexity clinical laboratory testing. PERFORMING LABORATORY: Technical component was performed [place] [address] (CLIA# [id number]). Professional interpretation was performed by [facility], [address] [place] [address] (CLIA#: [id number]). Diagnostician: Chet Pérez MD Pathologist Electronically Signed 09/30/2024 Copies: ~ PATIENT NAME: EMILY DAVIS PATHOLOGY DATE OF : 51 REPORT #: [id number] PHYSICIAN: MAYA BERKOWITZ PCP: BRAULIO ALVA PAC REPORT IS CONFIDENTIAL AND NOT TO BE RELEASED WITHOUT AUTHORIZATION
== END 2024-09-26 10:20 | disposition home or self-care (01) ==
LOC: DS 06:00
PROVIDERS: ATTEND Surgery
PROC: 0JB60ZZ Excision of Chest Subcutaneous Tissue and Fascia, Open Approach (ICD-10-PCS; 2024-09-26)
PROC: 0JB70ZZ Excision of Back Subcutaneous Tissue and Fascia, Open Approach (ICD-10-PCS; 2024-09-26)
PROC: 0JB80ZZ Excision of Abdomen Subcutaneous Tissue and Fascia, Open Approach (ICD-10-PCS; 2024-09-26)
PROC: 0JB70ZZ Excision of Back Subcutaneous Tissue and Fascia, Open Approach (ICD-10-PCS; 2024-09-26)
PROC: 0JB80ZZ Excision of Abdomen Subcutaneous Tissue and Fascia, Open Approach (ICD-10-PCS; principal; 2024-09-26 07:30)
DX: D17.1 Benign lipomatous neoplasm of skin and subcutaneous tissue of trunk (principal); I10 Essential (primary) hypertension; J45.909 Unspecified asthma, uncomplicated; G47.30 Sleep apnea, unspecified; E66.9 Obesity, unspecified; Z68.35 Body mass index [BMI] 35.0-35.9, adult; Z79.899 Other long term (current) drug therapy; Z91.09 Other allergy status, other than to drugs and biological substances; Z90.49 Acquired absence of other specified parts of digestive tract
CPT/HCPCS: 00470; 88304; J0131; J0690; J1100; J2003; J2405; J2704; J3010; J3490; J7121

== ENCOUNTER 2024-10-07 09:29 | Emergency (ER) | payer MEDICARE, OTHER ==
[~2024-10-07] VITALS: Ht 167.6 cm; Wt 101.0 kg
[~2024-10-07 09:29] MED LIST changes: +AFRIN15 M1 NAS; -LACTATED RINGER'S 1,000 ML IV SCH; +MOTRIN IB200 MG PO; +PERCOCET 7.5-31 EACH PO
[2024-10-07] MEDS ORDERED: CEPHALEXIN MONOHYDRATE 500 MG CAP PO ONE (10:15)
[2024-10-07] MEDS ORDERED: CEPHALEXIN500 M1 PO (10:34)
[2024-10-07 10:48] VITALS: BP 142/78
== END 2024-10-07 10:49 | disposition home or self-care (01) ==
LOC: ED 09:29
DX: L02.212 Cutaneous abscess of back [any part, except buttock and flank] (principal); J45.909 Unspecified asthma, uncomplicated
CPT/HCPCS: 10060; 87070; 87075; 87186; 87205; 99283-25; A9270

== ENCOUNTER 2024-11-05 07:47 | Day surgery (SDC) | payer MEDICARE, OTHER ==
[~2024-11-05] VITALS: Ht 167.6 cm; Wt 99.1 kg
[~2024-11-05 07:47] MED LIST changes: +CEFAZOLIN SODIUM 2 GM/20 ML SYR IV SCH; +CEPHALEXIN500 M1 PO; +IBLOOD GLUCOSE TEST STRIP 1 EA TEST VI PRN; +LACTATED RINGER'S 1,000 ML IV SCH; +LIDOCAINE HCL 1% 5 ML SDV INJ ONE
[2024-11-05 08:20] VITALS: BP 129/74
[2024-11-05] MEDS ORDERED: ondansetron HCL 4 MG/2 ML VIAL ONE (09:06)
[2024-11-05] MEDS ORDERED: ACETAMINOPHEN 1,000 MG/100 ML VIAL ONE (09:06)
[2024-11-05] MEDS ORDERED: DEXAMETHASONE SOD PHOS 4 MG/ML VIAL ONE (09:06)
[2024-11-05] MEDS ORDERED: KETOROLAC TROMETHAMINE 30 MG/ML VIAL ONE (09:06)
[2024-11-05] MEDS ORDERED: propofoL 200 MG/20 ML VIAL ONE (09:06)
[2024-11-05] MEDS ORDERED: fentaNYL citrate 100 MCG/2 ML VIAL ONE (09:06)
[2024-11-05] MEDS ORDERED: LIDOCAINE HCL 2% 5 ML SDV ONE (09:06)
[2024-11-05] MEDS ORDERED: ondansetron HCL 4 MG/2 ML VIAL IV PRN (10:15)
[2024-11-05] MEDS ORDERED: IBLOOD GLUCOSE TEST STRIP 1 EA TEST VI PRN (10:15)
[2024-11-05] MEDS ORDERED: HYDROmorphone HCL 1 MG/ML SYR IV PRN (10:15)
[2024-11-05] MEDS ORDERED: fentaNYL citrate 50 MCG/ML SDV IV PRN (10:15)
[2024-11-05] MEDS ORDERED: droPERidol 5 MG/2 ML VIAL IV PRN (10:15)
[2024-11-05] MEDS ORDERED: PROCHLORPERAZINE EDISYLATE 10 MG/2 ML VIAL IV PRN (10:15)
[2024-11-05] MEDS ORDERED: NALOXONE HCL 0.4 MG SYR IV PRN ×2 (10:15→11:00)
--- NOTE | 2024-11-05 10:39 | NUR ---
11/05/24 1038 Yanira Hernández 1034-PATIENT ARRIVED TO PACU ON 6L MASK NONAROUSABLE ORAL AIRWAY IN PLACE RR EVEN. SR HR 70'S IVF INFUSING. 4 SITES TO ABDOMEN INTACT. 1035-PATIENT REACTIVE OPENING EYES ORAL AIRWAY REMOVED ORIENTED TO PACU. CLOSES EYES.
[2024-11-05] MEDS ORDERED: IBUPROFEN600 MG PO (10:54)
[2024-11-05] MEDS ORDERED: OXYCODON-ACETA1 EAC2 PO (10:55)
[2024-11-05] MEDS ORDERED: ACETAMINOPHEN500 MG PO (10:56)
[2024-11-05] MEDS ORDERED: LACTATED RINGER'S 1,000 ML IV SCH (11:00)
[2024-11-05] MEDS ORDERED: ACETAMINOPHEN 500 MG TAB PO PRN (11:00)
[2024-11-05] MEDS ORDERED: IBUPROFEN 600 MG TAB PO PRN (11:00)
[2024-11-05] MEDS ORDERED: OXYCODONE/APAP 7.5/325 TAB PO PRN (11:00)
[2024-11-05 11:25] VITALS: BP 132/71
--- NOTE | 2024-11-07 09:08 | PATH ---
[facility] [address] [facility] [place], [place] [address] Signed SPECIMEN(S): A LEFT LATERAL ABDOMINAL WALL SPECIMEN(S): B LEFT ANTERIOR ABDOMEN SPECIMEN(S): C RIGHT UPPER QUADRANT SPECIMEN(S): D RIGHT LOWER QUADRANT SPECIMEN SOURCE: A. LEFT LATERAL ABDOMINAL WALL B. LEFT ANTERIOR ABDOMEN C. RIGHT UPPER QUADRANT D. RIGHT LOWER QUADRANT CLINICAL HISTORY: Abdominal wall lipoma FINAL PATHOLOGIC DIAGNOSIS: A. Soft tissue, left lateral abdominal wall, excision: - Mature adipose tissue, consistent with lipoma B. Soft tissue, left anterior abdomen, excision: - Mature adipose tissue, consistent with lipoma C. Soft tissue, right upper quadrant, excision: - Mature adipose tissue, consistent with lipoma D. Soft tissue, right lower quadrant, excision: - Mature adipose tissue, consistent with lipoma BRP MICROSCOPIC EXAMINATION: Histologic sections of all submitted blocks are examined by light microscopy. These findings, together with the gross examination, support the pathologic diagnosis. GROSS DESCRIPTION: A. The specimen, labeled and designated "Harvinder Davis, left lateral abdominal wall lipoma," is received in formalin and consists of a 3.5 x 2.6 x 1.5 cm yellow soft tissue with a thin translucent membrane capsule. The external surface is inked blue. Sectioning reveals a homogenous, soft and yellow cut surface without firm areas. No hemorrhage or necrosis is seen. Judicial Assistant sections are submitted in (A1). B. The specimen, labeled and designated "Elizabeth Davis., left anterior abdomen lipoma," is received in formalin and consists of 0.5 x 3.8 x 1.4 cm aggregate of yellow soft tissue fragments with a thin PATIENT NAME: EMILY DAVIS PATHOLOGY DATE OF : 51 REPORT #: [id number] PHYSICIAN: MAYA BERKOWITZ PCP: BRAULIO ALVA PAC REPORT IS CONFIDENTIAL AND NOT TO BE RELEASED WITHOUT AUTHORIZATION [facility] [address] [place], [place] [address] Signed translucent membrane capsule. The external surface is inked blue and the specimen is serially sectioned revealing a yellow homogenous cut surface. There are no areas of hemorrhage and necrosis. Judicial Assistant sections are submitted in cassette B1. C. The specimen, labeled and designated "Harvinder Davis, right upper quadrant lipoma," is received in formalin and consists of a 3.2 x 2.5 x 1.1 cm aggregate of yellow soft tissue fragments with a thin translucent membrane capsule. The external surface is inked blue and the specimen is serially sectioned revealing a yellow homogenous cut surface. There are no areas of hemorrhage or necrosis. Judicial Assistant sections are submitted in cassette C1. D. The specimen, labeled and designated "Elizabeth Davis., right lower quadrant lipoma," is received in formalin and consists of a 3.7 x 3 x 1.4 cm yellow soft tissue with a thin translucent membrane capsule. The external surface is inked blue. Sectioning reveals a homogenous, soft and yellow cut surface without firm areas. No hemorrhage or necrosis is seen. Judicial Assistant sections are submitted in (D1). NICOLÁS (under the direct supervision of a pathologist) The Gross Description was prepared using a voice recognition system. The report was reviewed for accuracy; however, sound-alike word errors, addition and/or deletions may occur. If there is any question about this report, please contact Client Services. ADDITIONAL NOTES: Immunohistochemical and/or in situ hybridization studies if performed in this case included appropriate positive controls that reacted as expected. This test was developed and its performance characteristics determined by [facility]. It has not been cleared or approved by the U.S. Food and Drug Administration. The FDA has determined that such clearance or approval is not necessary. This test is used for clinical purposes. It should not be regarded as investigational or for research. [facility] is certified under the Clinical Laboratory Improvement Amendments of 1988 (CLIA) as qualified to perform high complexity clinical laboratory testing. PERFORMING LABORATORY: Technical component was performed by [facility], [facility] [place] [address] (CLIA# [id number]). Professional interpretation was PATIENT NAME: EMILY DAVIS PATHOLOGY DATE OF : 51 REPORT #: [id number] PHYSICIAN: MAYA BERKOWITZ PCP: BRAULIO ALVA PAC REPORT IS CONFIDENTIAL AND NOT TO BE RELEASED WITHOUT AUTHORIZATION [address] [address] Signed performed by [facility] - [facility], [facility] [place] [address] (CLIA#: [id number]). Diagnostician: Chet Pérez MD Pathologist Electronically Signed 11/07/2024 Copies: ~ PATIENT NAME: EMILY DAVIS PATHOLOGY DATE OF : 51 REPORT #: [id number] PHYSICIAN: MAYA PATHOLOGY PCP: BRAULIO ALVA PAC REPORT IS CONFIDENTIAL AND NOT TO BE RELEASED WITHOUT AUTHORIZATION
--- NOTE | 2024-11-12 11:00 | OR ---
[facility] [address] [place], [place] [address] Signed DATE OF OPERATION: 11/05/2024 SURGEON: Praveena Cantu MD PREOPERATIVE DIAGNOSIS: Symptomatic lipomas abdominal wall x4. POSTOPERATIVE DIAGNOSIS: Symptomatic lipomas abdominal wall x4. PROCEDURE: Excision of subcutaneous lipoma x4 abdominal wall. ANESTHESIA: Local with monitored anesthesia care, Ole Sosa CRNA (Marcaine 0.25% with epinephrine and IV sedation). INDICATION: This 68-year-old woman has Dercum's disease (familial lipomatosis) and has undergone excision of five lipomas by me several weeks ago. She now has four additional lipomas that are quite symptomatic, four on the abdominal wall, two on the left side, and two on the right. She is admitted to undergo excision of the symptomatic lipomas. She understands the risk of bleeding, infection, recurrence, findings, typical lipomata were noted. There is a left lateral, left mid abdomen, right upper quadrant and prior incision site and right lower abdomen. All were smooth and benign in appearance. All were appropriately labeled and completely excised. DESCRIPTION OF PROCEDURE: The patient was brought to the operating room, given intravenous sedation. Preoperative antibiotic Ancef was given. Sequential compression device stockings were used. The abdomen had markings from identification of the symptomatic lipomas prior to entering the operating room. The abdomen was prepared with chlorhexidine solution and draped sterilely. The areas of concern regarding symptomatic lipomas were easily palpable. Marcaine 0.25% with epinephrine was injected directly over the areas. All four were treated in the same way with incision with a 15 blade. Dissection carried through the subcutaneous tissue and manipulation of the smooth walled lipomatous masses from outside of the subcutaneous layer. Electrocautery was used for hemostasis as necessary. The wounds were closed in layers with interrupted 2-0 Vicryl and a running subcuticular 3-0 Vicryl. Steri-Strips were applied. The patient tolerated the procedure well with excision of all four lipomas. She was taken to recovery room in good condition. Electronically Signed By: PRAVEENA CANTU MD 11/12/24 1100 PATIENT NAME: EMILY DAVIS OPERATIVE REPORT DATE OF : 51 REPORT #: [id number] PHYSICIAN: PRAVEENA CANTU MD PCP: MAINE BELLAMY REPORT IS CONFIDENTIAL AND NOT TO BE RELEASED WITHOUT AUTHORIZATION [address] [address] Signed MD VIDA Vazquez/RETAL /[id number] cc: Maine Bellamy PA-C Copies: MAINE BELLAMY ~ Electronically Signed By: PRAVEENA CANTU MD 11/12/24 1100 PATIENT NAME: EMILY DAVIS OPERATIVE REPORT DATE OF : 51 REPORT #: [id number] PHYSICIAN: PRAVEENA CANTU MD PCP: MAINE BELLAMY PAC REPORT IS CONFIDENTIAL AND NOT TO BE RELEASED WITHOUT AUTHORIZATION
== END 2024-11-05 11:30 | disposition home or self-care (01) ==
LOC: DS 07:47
PROVIDERS: ATTEND Surgery
PROC: 0JB80ZZ Excision of Abdomen Subcutaneous Tissue and Fascia, Open Approach (ICD-10-PCS; 2024-11-05)
PROC: 0JB80ZZ Excision of Abdomen Subcutaneous Tissue and Fascia, Open Approach (ICD-10-PCS; 2024-11-05)
PROC: 0JB80ZZ Excision of Abdomen Subcutaneous Tissue and Fascia, Open Approach (ICD-10-PCS; 2024-11-05)
PROC: 0JB80ZZ Excision of Abdomen Subcutaneous Tissue and Fascia, Open Approach (ICD-10-PCS; principal; 2024-11-05 09:20)
DX: D17.1 Benign lipomatous neoplasm of skin and subcutaneous tissue of trunk (principal); E88.2 Lipomatosis, not elsewhere classified; J45.909 Unspecified asthma, uncomplicated; Z79.899 Other long term (current) drug therapy
CPT/HCPCS: 00700; 88304; J0131; J0690; J1100; J1885; J2003; J2405; J2704; J3010; J7121

== ENCOUNTER 2024-12-27 07:33 | Day surgery (SDC) | payer MEDICARE, OTHER ==
[~2024-12-27 07:33] MED LIST changes: +ACETAMINOPHEN500 MG PO; -CEFAZOLIN SODIUM 2 GM/20 ML SYR IV SCH
[2024-12-27 07:59] VITALS: BP 127/71
[2024-12-27] MEDS ORDERED: DEXAMETHASONE SOD PHOS 4 MG/ML VIAL ONE (08:16)
[2024-12-27] MEDS ORDERED: LIDOCAINE HCL 2% 5 ML SDV ONE (08:17)
[2024-12-27] MEDS ORDERED: fentaNYL citrate 50 MCG/ML SDV IV PRN (09:15)
[2024-12-27] MEDS ORDERED: IBLOOD GLUCOSE TEST STRIP 1 EA TEST VI PRN (09:15)
[2024-12-27] MEDS ORDERED: NALOXONE HCL 0.4 MG SYR IV PRN ×2 (09:15→11:00)
[2024-12-27] MEDS ORDERED: fentaNYL citrate 100 MCG/2 ML VIAL ONE (09:34)
[2024-12-27] MEDS ORDERED: CEFAZOLIN SOD 1,000 MG/10 ML VIAL ONE (09:52)
[2024-12-27] MEDS ORDERED: SEVOFLURANE 250 ML BTL ONE (09:52)
[2024-12-27] MEDS ORDERED: LACTATED RINGER'S 1,000 ML IV ONE (10:14)
[2024-12-27] MEDS ORDERED: IBUPROFEN600 MG PO ×2 (10:51→10:52)
[2024-12-27] MEDS ORDERED: OXYCODON-ACETA1 EAC2 PO (10:52)
[2024-12-27] MEDS ORDERED: ACETAMINOPHEN 500 MG TAB PO PRN (11:00)
[2024-12-27] MEDS ORDERED: IBUPROFEN 600 MG TAB PO PRN (11:00)
[2024-12-27] MEDS ORDERED: OXYCODONE/APAP 7.5/325 TAB PO PRN (11:00)
[2024-12-27] MEDS ORDERED: LACTATED RINGER'S 1,000 ML IV SCH (11:00)
[2024-12-27 11:09] VITALS: BP 140/64
[2024-12-27 12:17] VITALS: BP 112/62
[2024-12-27 12:57] VITALS: BP 111/60
--- NOTE | 2024-12-27 14:00 | OR ---
[facility] [address] [place], [place] [address] Signed DATE OF OPERATION: 12/27/2024 SURGEON: Praveena Cantu MD PREOPERATIVE DIAGNOSIS: Symptomatic left posterior lumbar and thoracic soft tissue mass consistent with lipoma x4. POSTOPERATIVE DIAGNOSIS: Symptomatic left posterior lumbar and thoracic soft tissue mass consistent with lipoma x4 (subcutaneous). PROCEDURE: Excision of subcutaneous lipoma x4, left lumbar and left lateral chest wall (2.5 cm, 2 cm, 2.5 cm and 3 cm. ANESTHESIA: General LMA, Shayy Constantine, GRINDER SET UP OPERATOR CENTERLESS and local 10 mL of 0.25% Marcaine with epinephrine. INDICATION: This 69-year-old white woman is known to me from the past having undergone symptomatic lipoma excision of her torso previously x2. She continues to have development of multiple lipoma of her left lateral chest wall and flank area. She desires excision of these symptomatic soft tissue masses and understands the risk of bleeding, infection, recurrence and of course failure to cure her symptoms and wished to proceed. FINDINGS: Four lesions all consistent with benign multilobulated smooth walled lipoma were excised. They were in subcutaneous space. Excision size was 2.5 cm, 2 cm, 2.5 cm and 3 cm in length. All were excised completely without complication. DESCRIPTION OF PROCEDURE: The patient was brought to the operating room and given a general LMA type anesthetic, placed in the lateral decubitus position with left side up. The symptomatic lipoma had been identified by the patient with an X marking each area. Four such lesions had been identified. The abdominal wall was prepared with a chlorhexidine solution and draped sterilely. The palpable lesions were confirmed and transverse incision was made in the most superior lesion dissected through the subcutaneous tissue. Using a hemostat, blunt dissection was undertaken allowing for withdrawal of the lipomatous mass fully. Electrocautery was used for hemostasis. Irrigation was undertaken and hemostasis Electronically Signed By: PRAVEENA CANTU MD 12/27/24 1400 PATIENT NAME: EMILY DAVIS OPERATIVE REPORT DATE OF : 51 REPORT #: [id number] PHYSICIAN: PRAVEENA CANTU MD PCP: MAINE BELLAMY PAC REPORT IS CONFIDENTIAL AND NOT TO BE RELEASED WITHOUT AUTHORIZATION [address] [address] Signed assured fully. This lesion was 3 cm in length including the incision. Three additional such lesions were identified and excised in the same area and identified appropriately. They measured an additional 2.5 cm excision, 2 cm excision and 2.5 cm excision. All were similarly excised and all closed with interrupted 3-0 Vicryl. Steri-Strips were applied as was an Acticoat dressing. Blood loss was minimal. 10 mL of 0.25% Marcaine with epinephrine was injected prior to closure of the wounds. She was transferred after returning to supine position to the recovery room, having suffered no complication. Sponge, needle, and instrument counts were reported as correct x3. MD VIDA Vazquez/RETAL /[id number] cc: Maine Bellamy PA-C Copies: MAINE BELLAMY ~ Electronically Signed By: PRAVEENA CANTU MD 12/27/24 1400 PATIENT NAME: EMILY DAVIS OPERATIVE REPORT DATE OF : 51 REPORT #: [id number] PHYSICIAN: PRAVEENA CANTU MD PCP: MAIEN BELLAMY REPORT IS CONFIDENTIAL AND NOT TO BE RELEASED WITHOUT AUTHORIZATION
[2024-12-27] MEDS ORDERED: SEVOFLURANE 250 ML BTL INH ONE (14:41)
--- NOTE | 2024-12-31 12:46 | PATH ---
[facility] [address] [facility] [place], [place] [address] Signed SPECIMEN(S): A LEFT SUPERIOR FLANK SPECIMEN(S): B LEFT SUPERIOR FLANK MID PORTION SPECIMEN(S): C LEFT POSTERIOR ANTERIOR SPECIMEN(S): D LEFT POSTERIOR INFERIOR SPECIMEN SOURCE: A. LEFT SUPERIOR FLANK B. LEFT SUPERIOR FLANK MID PORTION C. LEFT POSTERIOR ANTERIOR D. LEFT POSTERIOR INFERIOR CLINICAL HISTORY: Lipomatosis FINAL PATHOLOGIC DIAGNOSIS: A. Left superior flank, excision: - Angiolipoma. B. Left superior flank midportion, excision: - Angiolipoma. C. Left posterior anterior, excision: - Angiolipoma. D. Left posterior inferior, excision: - Angiolipoma. DDF MICROSCOPIC EXAMINATION: Histologic sections of all submitted blocks are examined by light microscopy. These findings, together with the gross examination, support the pathologic diagnosis. GROSS DESCRIPTION: A. The specimen, labeled and designated "Sona, left superior flank," is received in formalin and consists of a portion of yellow-herrera lobulated fatty tissue (2.5 x 1.8 x 1.4 cm). The tissue is inked blue, and serially sectioned to reveal yellow-herrera lobulated fatty cut surfaces. Director Communications sections are submitted in cassette (A1). B. The specimen, labeled and designated "Sona, left superior flank midportion," is received in formalin and consists of a fragmented portion of yellow-herrera lobulated fatty tissue (3.8 x 3.0 x 1.5 cm in aggregate). The tissue is inked blue, and serially sectioned to reveal yellow-herrera lobulated fatty cut surfaces. Director Communications sections are submitted PATIENT NAME: EMILY DAVIS PATHOLOGY DATE OF : 51 REPORT #: [id number] PHYSICIAN: MAYA BERKOWITZ PCP: BRAULIO ALVA PAC REPORT IS CONFIDENTIAL AND NOT TO BE RELEASED WITHOUT AUTHORIZATION [facility] [address] [place], [place] [address] Signed in cassette (B1). C. The specimen, labeled and designated "Sona, left posterior anterior," is received in formalin and consists of a portion of yellow-herrera lobulated fatty tissue (2.0 x 1.4 x 1.0 cm). The tissue is inked blue, and serially sectioned to reveal yellow-herrera lobulated fatty cut surfaces. The specimen is submitted entirely in cassette (C1). D. The specimen, labeled and designated "Sona, left posterior inferior," is received in formalin and consists of multiple fragmented portions of yellow-herrera lobulated fatty tissue (4.0 x 2.8 x 1.4 cm in aggregate). The tissue is inked blue, and serially sectioned to reveal yellow-herrera to red-brown lobulated fatty cut surfaces. Director Communications sections are submitted in cassette (D1). VB (under the direct supervision of a pathologist) The Gross Description was prepared using a voice recognition system. The report was reviewed for accuracy; however, sound-alike word errors, addition and/or deletions may occur. If there is any question about this report, please contact Client Services. ADDITIONAL NOTES: Immunohistochemical and/or in situ hybridization studies if performed in this case included appropriate positive controls that reacted as expected. This test was developed and its performance characteristics determined by [facility]. It has not been cleared or approved by the U.S. Food and Drug Administration. The FDA has determined that such clearance or approval is not necessary. This test is used for clinical purposes. It should not be regarded as investigational or for research. [facility] is certified under the Clinical Laboratory Improvement Amendments of 1988 (CLIA) as qualified to perform high complexity clinical laboratory testing. PERFORMING LABORATORY: Technical component was performed by [facility], [address] [place] [address] (CLIA# [id number]). Professional interpretation was performed by [facility] - [address] [id number] Diagnostician: Ru Peter DO Pathologist Electronically Signed 12/31/2024 PATIENT NAME: EMILY DAVIS PATHOLOGY DATE OF : 51 REPORT #: [id number] PHYSICIAN: MAYA BERKOWITZ PCP: BRAULIO ALVA PAC REPORT IS CONFIDENTIAL AND NOT TO BE RELEASED WITHOUT AUTHORIZATION [facility] [address] [place] [address] [place] [address] Signed Copies: ~ PATIENT NAME: EMILY DAVIS PATHOLOGY DATE OF : 51 REPORT #: [id number] PHYSICIAN: MAYA BERKOWITZ PCP: BRAULIO ALVA PAC REPORT IS CONFIDENTIAL AND NOT TO BE RELEASED WITHOUT AUTHORIZATION
== END 2024-12-27 13:18 | disposition home or self-care (01) ==
LOC: DS 07:33
PROVIDERS: ATTEND Surgery
PROC: 0JB60ZZ Excision of Chest Subcutaneous Tissue and Fascia, Open Approach (ICD-10-PCS; principal; 2024-12-27 09:00)
PROC: 0JB70ZZ Excision of Back Subcutaneous Tissue and Fascia, Open Approach (ICD-10-PCS; principal; 2024-12-27 09:00)
DX: D17.1 Benign lipomatous neoplasm of skin and subcutaneous tissue of trunk (principal); I10 Essential (primary) hypertension; J45.909 Unspecified asthma, uncomplicated; Z79.899 Other long term (current) drug therapy; Z90.49 Acquired absence of other specified parts of digestive tract
CPT/HCPCS: 00300; A9270; J0690; J1100; J2003; J2405; J2704; J3010; J7121

== ENCOUNTER 2025-01-08 09:12 | Emergency (ER) | payer MEDICARE, OTHER ==
[~2025-01-08] VITALS: Ht 167.6 cm; Wt 100.6 kg
[~2025-01-08 09:12] MED LIST changes: -IBLOOD GLUCOSE TEST STRIP 1 EA TEST VI PRN; -LACTATED RINGER'S 1,000 ML IV SCH; -LIDOCAINE HCL 1% 5 ML SDV INJ ONE
[2025-01-08] MEDS ORDERED: CEPHALEXIN500 M1 PO (10:40)
[2025-01-08 10:56] VITALS: BP 124/79
== END 2025-01-08 10:56 | disposition home or self-care (01) ==
LOC: ED 09:12
DX: L02.212 Cutaneous abscess of back [any part, except buttock and flank] (principal); E78.00 Pure hypercholesterolemia, unspecified; J45.909 Unspecified asthma, uncomplicated; Z79.899 Other long term (current) drug therapy
CPT/HCPCS: 10060; 99283-25